=== PATIENT | male | born 1965 | race Caucasian/White ===

== ENCOUNTER 2018-01-11 13:58 | Inpatient (IN) ==
[2018-01-11 14:37] LABS: Basophils # 0.1 K/mcL (0.0-0.2); Eosinophils # 0.5 K/mcL (0.0-0.6); Eosinophils % 7.8 %; Hematocrit 24.2 % (37.5-50.1); Hemoglobin 8.2 g/dL (12.9-16.9); Immature Granulocytes % 0.5 % (0-4); Immature Platelets 13.1 % (1.1-6.1); Lymphocytes # 1.4 K/mcL (0.6-4.6); Mean Corpuscular HGB Conc 33.9 g/dL (31.6-35.5); Mean Corpuscular Hemoglobin 28.9 pg (28.0-33.3); Mean Corpuscular Volume 85.2 fL (83.0-100.0); Monocytes # 1.1 K/mcL (0.0-1.3); Monocytes % 17.1 %; Nucleated Red Blood Cells 0.3 /100 WBC (0); Platelet Count 109 K/mcL (140-400); Red Blood Count 2.84 M/mcL (4.19-5.50); Red Cell Distribution Width 18.6 % (11.5-14.5); Segmented Neutrophils % 51.6 %
[2018-01-11 14:45] LABS: Neutrophils # 3.3 K/mcL (1.6-8.9)
[2018-01-11 15:36] LABS: Calcium 7.8 mg/dL (8.6-10.3); Potassium 6.5 mEq/L (3.5-5.1)
[2018-01-11] MEDS ORDERED: Sodium Bicarbonate 50 MEQ/50 ML VIAL IVP ONE (15:36)
[2018-01-11] MEDS ORDERED: 0.9 % Sodium Chloride 1,000 ML IVC ONE (15:36)
[2018-01-11] MEDS ORDERED: *HR* FentaNYL (PF) 100 MCG/2 ML VIAL ONE (15:48)
[2018-01-11] MEDS ORDERED: *HR* FentaNYL (PF) 100 MCG/2 ML VIAL IVP ONE (16:26)
[2018-01-11] MEDS ORDERED: Furosemide 40 MG in 0.9 % Sodium Chloride 50 ML IVPB ONE (16:27)
[2018-01-11 16:58] LABS: Bilirubin,Urine Negative (Negative); Blood,Urine Large (Negative); Clarity,Urine Clear (Clear); Color,Urine Yellow (Yellow); Glucose,Urine (UA) >=1000 mg/dL (Normal); Ketones,Urine Negative (Negative); Leukocyte Esterase,Urine Negative (Negative); Nitrite,Urine Negative (Negative); Protein,Urine Negative (Neg-Trace); Specific Gravity,Urine 1.019 (1.010-1.025); Urobilinogen,Urine Normal (Normal)
[2018-01-11 17:00] LABS: Bacteria,Urine None Seen per hpf (None-Few); Hyaline Casts,Urine None Seen per lpf (None-Few); RBC,Urine 50-100 per hpf (0-3); Squamous Epithelial Cell,Urine Few per lpf (None-Few); WBC,Urine 0-3 per hpf (0-3)
--- NOTE | 2018-01-11 17:50 | Emergency Department Note ---
Disposition Clinical Impression: Hyperglycemia, Hyperkalemia Acute congestive heart failure Qualifiers: Heart failure type: unspecified Qualified Code(s): I50.9 - Heart failure, unspecified Hematuria Qualifiers: Hematuria type: unspecified type Qualified Code(s): R31.9 - Hematuria, unspecified Disposition: Admitted As Inpatient Condition: Fair General Adult HPI - General Chief complaint: ED General Medical Stated complaint: Legs painful burning X 3 days Time Seen by Provider: 01/11/18 14:00 Source: patient Mode of arrival: ambulatory Limitations: no limitations Nursing Notes Reviewed: Yes Vital Signs Reviewed: Yes - History of Present Illness HPI Narrative: 52-year-old male presents emergency department with concerns of burning in the bilateral lower extremity. Patient states pain is worse with movement. He has significant increase in swelling of bilateral lower extremity. Patient states he takes Lasix intermittently however he does not take it on a chronic basis. Patient denies fever, chills, chest pain, shortness of breath. Patient states he received a call sleek from his primary care provider that his potassium was significantly elevated however he did not have a ride to the hospital until today. Denies recent changes in medications. No recent chest pain, shortness of breath, palpitations. Pain Scale: 10 - Related Data Home Medications Medication Instructions Recorded Confirmed Aspirin [Adult Low Dose Aspirin EC] 81 mg PO DAILY 10/29/15 01/11/18 Atorvastatin [Lipitor] 40 mg PO HS 10/29/15 01/11/18 Furosemide [Lasix] 40 mg PO Q48H 10/29/15 01/11/18 Insulin ASPART [NovoLOG] 0 unit SQ TIDWM 10/29/15 01/11/18 Levothyroxine [Synthroid] 175 mcg PO 0630 10/29/15 01/11/18 Omeprazole [PriLOSEC] 40 mg PO DAILY 10/29/15 01/11/18 Spironolactone [Aldactone] 50 mg PO DAILY 10/29/15 01/11/18 Insulin Degludec [Tresiba 15 - 20 unit SQ HS 04/26/17 01/11/18 Flextouch U-100] Ciprofloxacin HCl [Cipro] 500 mg PO BID 01/11/18 01/11/18 HYDROcodone/Acet 10/325 mg [[place] 1 tab PO BID PRN 01/11/18 01/11/18 10-325 mg] Nadolol [Nadolol] 20 mg PO DAILY 01/11/18 01/11/18 Rifaximin [Xifaxan] 550 mg PO BID 01/11/18 01/11/18 Sennosides/Docusate Sodium [Senna 2 tab PO HS PRN 01/11/18 01/11/18 Plus] Previous Rx's Medication Instructions Recorded Prochlorperazine Maleate 10 mg PO Q6HR PRN #120 tablet 11/17/15 [Compazine] Ropinirole HCl [Requip] 3 mg PO HS #30 tablet 07/07/17 Lipase/Protease/Amylase [[address]nie Dr 4 each PO TIDWM #480 cap 07/19/17 6,000 Units Capsule] Allergies Allergy/AdvReac Type Severity Reaction Status Date / Time metformin Allergy Unknown unknown Verified 08/03/17 11:06 morphine Allergy Unknown Unknown Verified 08/03/17 11:06 Penicillins Allergy Unknown Rash Verified 08/03/17 11:06 All systems ED: reviewed and negative except as stated. Review of Systems: As Per HPI Past Medical History - Past Medical History Attestation: Yes The following information was validated with the patient. Source: patient Medical history: Reports: cancer, diabetes Surgical history: Reports: cancer surgery, cholecystectomy, colectomy, coronary bypass (CABG), splenectomy, other Psychiatric history: Reports: anxiety, bipolar, depression - Social History Smoking Status: Current every day smoker Smokeless Tobacco Status: No Alcohol use: Reports: none Drug use: Reports: none Physical Exam General: Alert and in no acute distress Skin: Warm, dry, intact Head: Normocephalic and atraumatic Neck: Supple, trachea midline and no tenderness Cardiovascular: RRR, no murmur, normal perfusion Respiratory: Crackles in the bilateral posterior inferior lung ford. Musculoskeletal: +2 pitting pitting in the bilateral lower shunt is. Full strength noted to the bilateral extremities with range of motion. Pulses equal in the bilateral lower extremities. GI: Soft, nontender, nondistended. Bowel sounds present Neuro: A&O to person, place, time and situation. No focal deficits noted on exam Psychiatric: cooperative and appropriate mood and affect. - General Limitations: no limitations General appearance: alert Course Vital Signs Temperature 98.5 F 01/11/18 14:05 Pulse Rate 56 01/11/18 14:05 Respiratory Rate 18 01/11/18 14:05 Blood Pressure 146/78 01/11/18 14:05 O2 Sat by Pulse Oximetry 100 01/11/18 14:05 Temperature 97.6 F 01/11/18 21:50 Pulse Rate 53 01/11/18 21:50 Respiratory Rate 18 01/11/18 21:50 Blood Pressure 168/80 01/11/18 21:50 O2 Sat by Pulse Oximetry 98 01/11/18 21:50 Oxygen Delivery Oxygen Delivery Room Air Medical Decision Making - MDM Narrative Medical decision making narrative: Patient was hyperkalemic, he was given calcium gluconate, bicarbonate an IV fluids. The set painter was counseled regarding the patient's likely acute congestive heart failure. Nephrology was consulted regarding the patient's hematuria. Patient is comfortable in the emergency department. Vital signs are stable. Patient will be admitted for further care and evaluation. He was given Lasix in emergency department. - Medical Records Medical records reviewed: Yes I reviewed the patient's medical records. - Lab Data Lab results reviewed: Yes I reviewed the patient's lab results. Result diagrams: 01/11/18 14:15 01/11/18 20:51 Lab Results 01/11/18 01/11/18 01/11/18 Range/Units 14:15 14:15 14:15 WBC 6.3 (4.3-11.1) K/mcL RBC 2.84 L (4.19-5.50) M/mcL Hgb 8.2 L (12.9-16.9) g/dL Hct 24.2 L (37.5-50.1) % MCV 85.2 (83.0-100.0) fL MCH 28.9 (28.0-33.3) pg MCHC 33.9 (31.6-35.5) g/dL RDW 18.6 H (11.5-14.5) % Plt Count 109 L (140-400) K/mcL Immature Gran % 0.5 (0-4) % Seg Neutrophils % 51.6 % Lymphocytes % 22.0 % Monocytes % 17.1 % Eosinophils % 7.8 % Basophils % 1.0 % Neutrophils # 3.3 (1.6-8.9) K/mcL Lymphocytes # 1.4 (0.6-4.6) K/mcL Monocytes # 1.1 (0.0-1.3) K/mcL Eosinophils # 0.5 (0.0-0.6) K/mcL Basophils # 0.1 (0.0-0.2) K/mcL Nucleated RBCs/100 WBC 0.3 H (0) /100 WBC Immature Plt Fraction 13.1 H (1.1-6.1) % Sodium 128 L (136-145) mEq/L Potassium 6.5 H* (3.5-5.1) mEq/L Chloride 106 (98-107) mEq/L Carbon Dioxide 20 L (23-29) mEq/L BUN 10 (6-20) mg/dL Creatinine 1.90 H (0.70-1.30) mg/dL Est GFR ( Amer) 45 L (> 60) Est GFR (Non-Af Amer) 37 L (> 60) BUN/Creatinine Ratio 5 L (6-26) Glucose 598 H* (70-105) mg/dL Calculated Osmolality 293 (280-300) Calcium 7.8 L (8.6-10.3) mg/dL Creatine Kinase 292 H (30-223) Units/L Troponin I < 0.03 (< 0.04) ng/mL B-Natriuretic Peptide (Less than 100) pg/mL Beta-Hydroxybutyric Acd (0.02-0.27) mmol/L Urine Color (Yellow) Urine Clarity (Clear) Urine pH (5.0-8.0) pH Units Ur Specific [place] (1.010-1.025) Urine Protein (Neg-Trace) mg/dL Urine Glucose (UA) (Normal) mg/dL Urine Ketones (Negative) mg/dL Urine Blood (Negative) Urine Nitrite (Negative) Urine Bilirubin (Negative) Urine Urobilinogen (Normal) mg/dL Ur Leukocyte Esterase (Negative) Urine Microscopic RBC (0-3) per hpf Urine Microscopic WBC (0-3) per hpf Ur Squamous Epith Cells (None-Few) per lpf Urine Bacteria (None-Few) per hpf Hyaline Casts (None-Few) per lpf Ur Culture Indicated? (NO) 01/11/18 01/11/18 01/11/18 Range/Units 14:15 14:41 16:45 WBC (4.3-11.1) K/mcL RBC (4.19-5.50) M/mcL Hgb (12.9-16.9) g/dL Hct (37.5-50.1) % MCV (83.0-100.0) fL MCH (28.0-33.3) pg MCHC (31.6-35.5) g/dL RDW (11.5-14.5) % Plt Count (140-400) K/mcL Immature Gran % (0-4) % Seg Neutrophils % % Lymphocytes % % Monocytes % % Eosinophils % % Basophils % % Neutrophils # (1.6-8.9) K/mcL Lymphocytes # (0.6-4.6) K/mcL Monocytes # (0.0-1.3) K/mcL Eosinophils # (0.0-0.6) K/mcL Basophils # (0.0-0.2) K/mcL Nucleated RBCs/100 WBC (0) /100 WBC Immature Plt Fraction (1.1-6.1) % Sodium (136-145) mEq/L Potassium (3.5-5.1) mEq/L Chloride (98-107) mEq/L Carbon Dioxide (23-29) mEq/L BUN (6-20) mg/dL Creatinine (0.70-1.30) mg/dL Est GFR ( Amer) (> 60) Est GFR (Non-Af Amer) (> 60) BUN/Creatinine Ratio (6-26) Glucose (70-105) mg/dL Calculated Osmolality (280-300) Calcium (8.6-10.3) mg/dL Creatine Kinase (30-223) Units/L Troponin I (< 0.04) ng/mL B-Natriuretic Peptide 674 H (Less than 100) pg/mL Beta-Hydroxybutyric Acd < 0.10 (0.02-0.27) mmol/L Urine Color Yellow (Yellow) Urine Clarity Clear (Clear) Urine pH 6.0 (5.0-8.0) pH Units Ur Specific [place] 1.019 (1.010-1.025) Urine Protein Negative (Neg-Trace) mg/dL Urine Glucose (UA) >=1000 H (Normal) mg/dL Urine Ketones Negative (Negative) mg/dL Urine Blood Large H (Negative) Urine Nitrite Negative (Negative) Urine Bilirubin Negative (Negative) Urine Urobilinogen Normal (Normal) mg/dL Ur Leukocyte Esterase Negative (Negative) Urine Microscopic RBC 50-100 H (0-3) per hpf Urine Microscopic WBC 0-3 (0-3) per hpf Ur Squamous Epith Cells Few (None-Few) per lpf Urine Bacteria None Seen (None-Few) per hpf Hyaline Casts None Seen (None-Few) per lpf Ur Culture Indicated? NO (NO) 01/11/18 Range/Units 20:51 WBC (4.3-11.1) K/mcL RBC (4.19-5.50) M/mcL Hgb (12.9-16.9) g/dL Hct (37.5-50.1) % MCV (83.0-100.0) fL MCH (28.0-33.3) pg MCHC (31.6-35.5) g/dL RDW (11.5-14.5) % Plt Count (140-400) K/mcL Immature Gran % (0-4) % Seg Neutrophils % % Lymphocytes % % Monocytes % % Eosinophils % % Basophils % % Neutrophils # (1.6-8.9) K/mcL Lymphocytes # (0.6-4.6) K/mcL Monocytes # (0.0-1.3) K/mcL Eosinophils # (0.0-0.6) K/mcL Basophils # (0.0-0.2) K/mcL Nucleated RBCs/100 WBC (0) /100 WBC Immature Plt Fraction (1.1-6.1) % Sodium 129 L (136-145) mEq/L Potassium 6.2 H (3.5-5.1) mEq/L Chloride 107 (98-107) mEq/L Carbon Dioxide 22 L (23-29) mEq/L BUN 10 (6-20) mg/dL Creatinine 1.72 H (0.70-1.30) mg/dL Est GFR ( Amer) 51 L (> 60) Est GFR (Non-Af Amer) 42 L (> 60) BUN/Creatinine Ratio 6 (6-26) Glucose 546 H* (70-105) mg/dL Calculated Osmolality 292 (280-300) Calcium 7.9 L (8.6-10.3) mg/dL Creatine Kinase (30-223) Units/L Troponin I (< 0.04) ng/mL B-Natriuretic Peptide (Less than 100) pg/mL Beta-Hydroxybutyric Acd (0.02-0.27) mmol/L Urine Color (Yellow) Urine Clarity (Clear) Urine pH (5.0-8.0) pH Units Ur Specific [place] (1.010-1.025) Urine Protein (Neg-Trace) mg/dL Urine Glucose (UA) (Normal) mg/dL Urine Ketones (Negative) mg/dL Urine Blood (Negative) Urine Nitrite (Negative) Urine Bilirubin (Negative) Urine Urobilinogen (Normal) mg/dL Ur Leukocyte Esterase (Negative) Urine Microscopic RBC (0-3) per hpf Urine Microscopic WBC (0-3) per hpf Ur Squamous Epith Cells (None-Few) per lpf Urine Bacteria (None-Few) per hpf Hyaline Casts (None-Few) per lpf Ur Culture Indicated? (NO) - Radiology Data Radiology results reviewed: Yes I reviewed the patient's radiology results. - EKG Data EKG #1 EKG attestation: Yes I reviewed and interpreted this EKG.
[2018-01-11] MEDS ORDERED: Naloxone 0.4 MG/ML INJ IVP PRN (20:22)
[2018-01-11] MEDS ORDERED: D5% in Water 1,000 ML IVC PRN (20:27)
[2018-01-11] MEDS ORDERED: Dextrose Gel 15 GM/37.5 ML TUBE PO PRN ×2 (20:27)
[2018-01-11] MEDS ORDERED: *HR* Dextrose 50 % in Water (Syg) 50 ML SYRINGE IVP PRN (20:27)
[2018-01-11] MEDS ORDERED: Insulin Regular, Human 100 UNIT/ML IV ONE (20:29)
--- NOTE | 2018-01-11 20:41 | Internal Med History&Physical ---
Date of Encounter: 01/11/18 Time of Encounter: 20:00 Assessment and Plan (1) Uncontrolled diabetes mellitus Current visit: Yes Status: Acute Patient has poorly controlled diabetes with glucose level over 500. Anion gap is 2. No hyperosmolarity. - Give patient insulin 10 units IV once. - Give patient basal and sliding scale insulin coverage. - Check BMP every 4 hour for hyperglycemia and hyperkalemia. Qualifiers: Diabetes mellitus type: type 1 Diabetes mellitus complication status: with kidney complications Diabetes mellitus complication detail: with chronic kidney disease Chronic kidney disease stage: stage 3 (moderate) Qualified Code(s): E10.22 - Type 1 diabetes mellitus with diabetic chronic kidney disease ; E10.65 - Type 1 diabetes mellitus with hyperglycemia; E10.65 - Type 1 diabetes mellitus with hyperglycemia; E10.65 - Type 1 diabetes mellitus with hyperglycemia; E10.65 - Type 1 diabetes mellitus with hyperglycemia; N18.3 - Chronic kidney disease, stage 3 (moderate); N18.3 - Chronic kidney disease, stage 3 (moderate) (2) Hyperkalemia Current visit: Yes Status: Acute Patient was given calcium gluconate, Lasix and bicarbonate in the emergency room. Will give IV insulin 10 units as well. Will hold home medications spironolactone. - Place patient on continuous cardiac monitoring - Check BMP every 4 hours (3) CHF (congestive heart failure) Current visit: Yes Status: Acute Patient denies shortness of breath. However, chest x-ray shows pulmonary congestion, patient has bilateral leg swelling and elevated BNP. - Consider CHF with mild fluid overload. - Place patient on Lasix 40 mg IV daily. - Check echocardiogram - Strict I and O. Cardiac and the fluid restriction diet. Qualifiers: Heart failure type: unspecified Heart failure chronicity: unspecified Qualified Code(s): I50.9 - Heart failure, unspecified (4) Leg pain, bilateral Current visit: Yes Status: Acute Etiology is undetermined. Patient has good pulse bilaterally. Patient has long -term diabetes with neuropathy, which may account for leg pain and burning. - Continue diabetes control - Place patient on gabapentin 300 mg 3 times a day - Treat electrolyte abnormality - PTOT evaluation (5) Cirrhosis Current visit: Yes Status: Acute Patient has cirrhosis due to fatty liver. Continue rifaximin and medication for constipation. Continue closely follow up as outpatient Qualifiers: Hepatic cirrhosis type: other cirrhosis Qualified Code(s): K74.69 - Other cirrhosis of liver (6) DVT prophylaxis Current visit: Yes Status: Acute EPCD. Not place patient on heparin because of thrombocytopenia (7) Pancreas cancer Current visit: No Status: Chronic S/P surgery 3 yrs ago. Continue Creon. Continue follow-up with oncology as outpatient Qualifiers: Pancreatic malignancy location: head of pancreas Qualified Code(s): C25.0 - Malignant neoplasm of head of pancreas Internal Medicine - H&P: HPI Chief complaint: Leg pain Admitted From: Home Plans for Post Hospital Care: Home History of present illness: Mr. Trimble is a 52 year old male with history of cirrhosis, pancreas cancer S/ P Whipple surgery, diabetes, hypertension, CAD S/P CABG, presented to ER for bilateral leg pain, burning, and cramping for 4 days. Patient states the pain is constant. Patient denies numbness, has mild weakness, no tingling. Patient denies urinary or fecal incontinence. Patient has no shortness of breath, chest pain, nausea or vomiting. In ER, he was found uncontrolled diabetes with glucose level over 500 with hyperkalemia as a potassium level at 6.5. Patient was given bicarbonate and Lasix in ER. He was admitted for further management. I have discussed CODE STATUS with patient. Patient clearly told me he does not want CPR or intubation, even temporarily intubation. DNR/DNI is placed. Past Med Surg Social Fam HX - Past Medical History Medical history: cancer, diabetes Psychiatric history: anxiety, bipolar, depression - Past Surgical History Surgical History: cancer surgery, cholecystectomy, colectomy, coronary bypass ( CABG), splenectomy, other - Social History Smoking Status: Current every day smoker Smokeless Tobacco Status: No Alcohol use: none Drug use: none - Family History Father Living Status: Hx Family Cardiac Disorders: Yes Hx Family Respiratory Disorders: Yes (copd) Hx Family Cancer: Yes (LIVER, LEUKEMIA, BONE) Hx Family GI Disorders: No Hx Family Endocrine Disorder: Yes Hx Family Neuromuscular Disorders: No Hx Family Neurologic Disorders: No Hx Family HEENT Disorders: No Hx Family Autoimmune Disorders: No Internal Medicine - H&P: Meds Aspirin [Adult Low Dose Aspirin EC] 81 mg PO DAILY 10/29/15 [History] Atorvastatin [Lipitor] 40 mg PO HS 10/29/15 [History] Furosemide [Lasix] 40 mg PO Q48H 10/29/15 [History] Insulin ASPART [NovoLOG] 0 unit SQ TIDWM 10/29/15 [History] Levothyroxine [Synthroid] 175 mcg PO 0630 10/29/15 [History] Omeprazole [PriLOSEC] 40 mg PO DAILY 10/29/15 [History] Spironolactone [Aldactone] 50 mg PO DAILY 10/29/15 [History] Prochlorperazine Maleate [Compazine] 10 mg PO Q6HR PRN #120 tablet 11/17/15 [Rx] Insulin Degludec [Tresiba Flextouch U-100] 15 - 20 unit SQ HS 04/26/17 [History] Ropinirole HCl [Requip] 3 mg PO HS #30 tablet 07/07/17 [Rx] Lipase/Protease/Amylase [Creon Dr 6,000 Units Capsule] 4 each PO TIDWM #480 cap 07/19/17 [Rx] Ciprofloxacin HCl [Cipro] 500 mg PO BID 01/11/18 [History] HYDROcodone/Acet 10/325 mg [[place] 10-325 mg] 1 tab PO BID PRN 01/11/18 [History] Nadolol [Nadolol] 20 mg PO DAILY 01/11/18 [History] Rifaximin [Xifaxan] 550 mg PO BID 01/11/18 [History] Sennosides/Docusate Sodium [Senna Plus] 2 tab PO HS PRN 01/11/18 [History] 3 Allergy/AdvReac Type Severity Reaction Status Date / Time metformin Allergy Unknown unknown Verified 08/03/17 11:06 morphine Allergy Unknown Unknown Verified 08/03/17 11:06 Penicillins Allergy Unknown Rash Verified 08/03/17 11:06 All Systems PM: A 10-system review of systems was performed and is negative for pertinent findings except as documented above in the HPI. - Constitutional Vitals: Temp Pulse Resp BP Pulse Ox 98.5 F 50 22 148/88 100 01/11/18 14:05 01/11/18 18:32 01/11/18 18:32 01/11/18 18:32 01/11/18 18:32 General appearance: Present: A&O X 3, no acute distress, answers questions appropriately - Head Head exam: Present: atraumatic, normocephalic - Eye Eye exam: Present: PERRL, conjuntiva pink, sclera anicteric Pupils: Present: PERRL - Neck Neck exam general surgery: Present: supple, trachea midline. Absent: lymphadenopathy - Respiratory Respiratory exam: Present: CTAB. Absent: accessory muscle use, rales, rhonchi, wheezes - Cardiovascular Cardiovascular exam: Present: RRR, +S1, +S2. Absent: diastolic murmur, gallop, rubs, systolic murmur - GI/Abdominal GI/Abdominal exam: Present: distended, normal bowel sounds, soft, no peritoneal signs. Absent: tenderness - Extremities Exam Extremities exam: Present: pedal edema (Bilateral pitting edema up to knees), warm, radial pulses palpable and symmetrical. Absent: calf tenderness, cyanotic - Neurological Exam Neurological exam: Present: CN II-XII intact, oriented X3, no focal deficits. Absent: pronater drift, facial droop, speech deficit - Skin Skin exam: Present: dry, intact Internal Med - H&P Results - Labs CBC & Chem 7: 01/11/18 14:15 01/11/18 14:15 Labs: Short CBC 01/11/18 Range/Units 14:15 WBC 6.3 (4.3-11.1) K/mcL Hgb 8.2 L (12.9-16.9) g/dL Hct 24.2 L (37.5-50.1) % Plt Count 109 L (140-400) K/mcL Neutrophils # 3.3 (1.6-8.9) K/mcL BMP 01/11/18 14:15 Sodium 128 L Potassium 6.5 H* Chloride 106 Carbon Dioxide 20 L BUN 10 Creatinine 1.90 H Glucose 598 H* Calcium 7.8 L Cardiac Enzymes 01/11/18 Range/Units 14:15 Troponin I < 0.03 (< 0.04) ng/mL Urine 01/11/18 Range/Units 16:45 Urine Color Yellow (Yellow) Urine Clarity Clear (Clear) Urine pH 6.0 (5.0-8.0) pH Units Ur Specific [place] 1.019 (1.010-1.025) Urine Protein Negative (Neg-Trace) mg/dL Urine Glucose (UA) >=1000 H (Normal) mg/dL - Impressions ITS Impressions Chest X-Ray 01/11/18 16:21 IMPRESSION: Cardiomegaly with mild vascular congestive change. D/ / 01/11/2018 17:12:47 Cabrera Boggs MD / mendez Interpreting Provider: Cabrera Boggs MD
[2018-01-11] MEDS ORDERED: SODIUM CHLORIDE IV ONE (20:45)
[2018-01-11] MEDS ORDERED: INSULIN HUMAN REGULAR IV ONE (20:45)
[2018-01-11] MEDS ORDERED: Sennosides/Docusate Sodium TABLET PO PRN (20:55)
[2018-01-11] MEDS ORDERED: Insulin DETEMIR 100 UNIT/ML X5UNITS SQ SCH (21:00)
[2018-01-11 21:38] LABS: Calcium 7.9 mg/dL (8.6-10.3); Potassium 6.2 mEq/L (3.5-5.1)
[2018-01-11] MEDS: *HR* HYDROcodone/Acet 10/325 mg TABLET PO PRN (22:20)
[2018-01-11] MEDS: Gabapentin 300 MG CAPSULE PO SCH (22:20)
[2018-01-11] MEDS: Insulin LISPRO 300 UNITS/3 ML VIAL SQ SCH (22:21)
[2018-01-12 00:48] LABS: Basophils % 0.6 %; Hematocrit 23.2 % (37.5-50.1); Immature Granulocytes % 0.3 % (0-4); Mean Corpuscular HGB Conc 34.5 g/dL (31.6-35.5)
[2018-01-12 00:50] LABS: Eosinophils # 0.4 K/mcL (0.0-0.6); Eosinophils % 6.9 %; Immature Platelets 12.9 % (1.1-6.1); Lymphocytes # 1.5 K/mcL (0.6-4.6); Lymphocytes % 22.7 %; Mean Corpuscular Hemoglobin 29.1 pg (28.0-33.3); Mean Corpuscular Volume 84.4 fL (83.0-100.0); Monocytes % 15.8 %; Neutrophils # 3.4 K/mcL (1.6-8.9); Platelet Count 103 K/mcL (140-400); Red Blood Count 2.75 M/mcL (4.19-5.50); Red Cell Distribution Width 18.3 % (11.5-14.5); Segmented Neutrophils % 53.7 %
[2018-01-12 00:54] LABS: INR 1.9; Prothrombin Time 20.5 Seconds (9.4-12.1)
[2018-01-12 01:16] LABS: Albumin 1.7 g/dL (3.5-5.7); Albumin/Globulin Ratio 0.4 (1.1-2.2); Globulin 4.1 g/dL (2.4-3.5); Magnesium 1.4 mg/dL (1.6-2.6); Phosphorous 3.4 mg/dL (2.7-4.5); Potassium 5.6 mEq/L (3.5-5.1); Total Protein 5.8 g/dL (6.4-8.9)
[2018-01-12 01:19] LABS: Potassium 5.6 mEq/L (3.5-5.1)
[2018-01-12 01:42] LABS: Acanthocytes 1+ (Not Present); Anisocytosis 1+ (Not Present); Microcytosis Present (Not Present); Platelet Estimate Decreased (Normal); Poikilocytosis 1+ (Not Present); Schistocytes 1+ (Not Present)
[2018-01-12] MEDS: Aspirin Enteric Coated 81 MG Tablet PO SCH (08:45)
[2018-01-12] MEDS: Gabapentin 300 MG CAPSULE PO SCH ×3 (08:46→22:12)
[2018-01-12] MEDS: Furosemide 40 MG/4 ML VIAL IVP SCH (08:46)
[2018-01-12] MEDS: Insulin LISPRO 300 UNITS/3 ML VIAL SQ SCH ×4 (08:46→22:13)
--- NOTE | 2018-01-12 11:20 | Nephrology Consult Note ---
Date of Encounter: 01/12/18 Time of Encounter: 11:16 Assessment and Plan (1) Hyperkalemia Current Visit: Yes Status: Acute Improving, currently K+ 5.6 Agree with holding Spironolactone Continue IV insulin (2) Acute kidney injury superimposed on chronic kidney disease Current Visit: Yes Status: Acute Review of past labs show a CKD stage 3a with a baseline of Scr 1.5 and GFR 46 Current Scr 1.87 and GFR 38 Workup to include: urine sodium, urine creatinine, urine eosinophils, CPK, uric acid, renal ultrasound, PTH, C3 & C4 compliment, Vit D 25-OH, FÉLIX, protein electrophoresis, immunofixation urine, protein/creatinine ratio. Patient has used a lot of NSAIDs; recommend Tylenol in future and avoid NSAIDs Strict I/Os Avoid nephrotoxins if possible (3) Leg pain, bilateral Current Visit: Yes Status: Acute per primary team Patient on Gabapentin 300mg TID; recommended dose for patient with a Scr 30-60 is 200mg-700mg BID; consider lowering Gabapentin dosage to BID in light of CKD (4) Uncontrolled diabetes mellitus Current Visit: Yes Status: Acute per primary team Qualifiers: Diabetes mellitus type: type 1 Diabetes mellitus complication status: with kidney complications Diabetes mellitus complication detail: with chronic kidney disease Chronic kidney disease stage: stage 3 (moderate) Qualified Code(s): E10.22 - Type 1 diabetes mellitus with diabetic chronic kidney disease ; E10.65 - Type 1 diabetes mellitus with hyperglycemia; E10.65 - Type 1 diabetes mellitus with hyperglycemia; E10.65 - Type 1 diabetes mellitus with hyperglycemia; E10.65 - Type 1 diabetes mellitus with hyperglycemia; N18.3 - Chronic kidney disease, stage 3 (moderate); N18.3 - Chronic kidney disease, stage 3 (moderate) (5) Hypomagnesemia Current Visit: Yes Status: Acute Mg 1.4 Give Mg 2grams History of Present Illness - Reason for Consult Consult date: 01/12/18 - Chief Complaint Hyperkalemia, LISA, uncontrolled diabetes mellitus - History of Present Illness Mr. Trimble is a 52 year old male with a PMH of cirrhosis, pancreas cancer S/P Whipple surgery, diabetes, hypertension, CAD S/P CABG, who presented to ER for bilateral leg pain, burning, and cramping for 4 days. In ER, he was found uncontrolled diabetes with glucose level over 500 and with a K+ of 6.5. Patient was given bicarbonate, calcium gluconate and Lasix in ER and admitted for further management. K+ is now 5.6; Scr 1.87 and GFR 38. Denies ever being told he has CKD or seeing a photoradio operator. Denies any family history of kidney disease. Admits to a lot of NSAID usage due to chronic pain. Past Med Surg Social Fam HX - Past Medical History Medical history: cancer, diabetes Psychiatric history: anxiety, bipolar, depression - Past Surgical History Surgical History: cancer surgery, cholecystectomy, colectomy, coronary bypass ( CABG), splenectomy, other - Social History Smoking Status: Current every day smoker Smokeless Tobacco Status: No Alcohol use: none Drug use: none - Family History Father Living Status: Hx Family Cardiac Disorders: Yes Hx Family Respiratory Disorders: Yes (copd) Hx Family Cancer: Yes (LIVER, LEUKEMIA, BONE) Hx Family GI Disorders: No Hx Family Endocrine Disorder: Yes Hx Family Neuromuscular Disorders: No Hx Family Neurologic Disorders: No Hx Family HEENT Disorders: No Hx Family Autoimmune Disorders: No Medications and Allergies Aspirin [Adult Low Dose Aspirin EC] 81 mg PO DAILY 10/29/15 [History] Atorvastatin [Lipitor] 40 mg PO HS 10/29/15 [History] Furosemide [Lasix] 40 mg PO Q48H 10/29/15 [History] Insulin ASPART [NovoLOG] 0 unit SQ TIDWM 10/29/15 [History] Levothyroxine [Synthroid] 175 mcg PO 0630 10/29/15 [History] Omeprazole [PriLOSEC] 40 mg PO DAILY 10/29/15 [History] Spironolactone [Aldactone] 50 mg PO DAILY 10/29/15 [History] Prochlorperazine Maleate [Compazine] 10 mg PO Q6HR PRN #120 tablet 11/17/15 [Rx] Insulin Degludec [Tresiba Flextouch U-100] 15 - 20 unit SQ HS 04/26/17 [History] Ropinirole HCl [Requip] 3 mg PO HS #30 tablet 07/07/17 [Rx] Lipase/Protease/Amylase [Creon Dr 6,000 Units Capsule] 4 each PO TIDWM #480 cap 07/19/17 [Rx] Ciprofloxacin HCl [Cipro] 500 mg PO BID 01/11/18 [History] HYDROcodone/Acet 10/325 mg [[place] 10-325 mg] 1 tab PO BID PRN 01/11/18 [History] Nadolol [Nadolol] 20 mg PO DAILY 01/11/18 [History] Rifaximin [Xifaxan] 550 mg PO BID 01/11/18 [History] Sennosides/Docusate Sodium [Senna Plus] 2 tab PO HS PRN 01/11/18 [History] 3 Allergy/AdvReac Type Severity Reaction Status Date / Time metformin Allergy Unknown unknown Verified 08/03/17 11:06 morphine Allergy Unknown Unknown Verified 08/03/17 11:06 Penicillins Allergy Unknown Rash Verified 08/03/17 11:06 Review of Systems All Systems: reviewed and no additional remarkable complaints except as stated Constitutional: malaise, weight gain, no chills, no fever(s) Cardiovascular: leg edema, no chest pain, no dyspnea, no dyspnea on exertion Respiratory: no dyspnea Gastrointestinal: no vomiting Neurological: no behavioral changes Exam - Vital Signs Vital signs: Initial Vital Signs Temp Pulse Resp BP Pulse Ox 98.5 F 56 18 146/78 100 01/11/18 14:05 01/11/18 14:05 01/11/18 14:05 01/11/18 14:05 01/11/18 14:05 Vital Signs - Last 8 Hours Temp Pulse Resp BP Pulse Ox 01/12/18 06:50 97.5 F L 53 15 108/63 97 01/12/18 04:25 97.5 F L 56 18 104/62 94 Intake and Output 01/11/18 01/12/18 01/12/18 23:59 07:59 15:59 Intake Total 0 / 1164 0 / 0 240 / 240 Output Total 350 / 350 300 / 300 Balance -350 / 814 -300 / -300 240 / 240 Intake: Oral 0 / 0 0 / 0 240 / 240 Output: Urine 350 / 350 300 / 300 Other: Meal Breakfast Percent of Meal Consumed 100% # Voids 1 0 # Bowel Movements 1 Weight 91.6 kg Blood Glucose* 510 229 - General Appearance General appearance: well-developed, well-nourished EENT: ATNC, mucous membranes moist, hearing intact, vision intact Neck: supple Respiratory: clear Cardiology: edema, normal S1, normal S2 Gastrointestinal: no tenderness, no guarding Neurologic: alert and oriented x3 Psychiatric: mood/affect appropriate, cooperative Results - Lab Results 01/12/18 00:26 01/12/18 00:26 Most recent lab results Calcium 8.0 mg/dL (8.6-10.3) L 01/12/18 00:26 Phosphorus 3.4 mg/dL (2.7-4.5) 01/12/18 00:26 Magnesium 1.4 mg/dL (1.6-2.6) L 01/12/18 00:26 Consult Discharge Plan - Plan Referrals: Niurka Arana, ELKIN [Primary Care Provider] -
--- NOTE | 2018-01-12 15:11 | Cardiology Consult Note ---
<AnthonyYnes Tami - Last Filed: 01/12/18 15:14> Date of Encounter: 01/12/18 Time of Encounter: 14:30 Assessment and Plan (1) CHF (congestive heart failure) Current Visit: Yes Status: Acute Per cardiology: -Significant lower extremity edema. -BNP 600s -TTE with LVEF 60-65%, moderate diastolic dysufnction, no segmental wall motion abnormalities. -Chest x-ray with mild vascular changes. -ON IV lasix. -Strict i/os, daily weighs, fluid restriction. -Will continue to monitor. Qualifiers: Heart failure type: diastolic Heart failure chronicity: unspecified Qualified Code(s): I50.30 - Unspecified diastolic (congestive) heart failure Discussion w patient/family: The assessment and plan as outlined above was discussed with the patient who expressed understanding and agreement. All questions were answered. Thank you for involving us in the care of your patient. Please call with any questions. Discussed and reviewed with . History of Present Illness Consult date: 01/11/18 Requesting physician: Viktor Crews Consult reason: fluid overload Chief complaint: leg pain History of present illness: Mr. Trimble is a 52 year old male with a relevant past medial history of CAD s/ p CABG, pancreatic CA s/p whipple procedure, depression, HTN, GERD, thyroid disease, liver cirrhosis. Patient presented to [facility] on advice of his PCP for abnormal potassium level. Patient complaned of bilateral lower extermity leg burning upon presentation. Upon my assessment, patient lethargic. Past Med Surg Social Fam HX - Past Medical History Attestation: Yes The following information was validated with the patient. Source: patient, old records reviewed Medical history: cancer, coronary artery disease, diabetes Psychiatric history: anxiety, bipolar, depression - Past Surgical History Surgical History: cancer surgery, cholecystectomy, colectomy, coronary bypass ( CABG), splenectomy, other - Social History Smoking Status: Current every day smoker Smokeless Tobacco Status: No Alcohol use: none Drug use: none - Family History Father Living Status: Hx Family Cardiac Disorders: Yes Hx Family Respiratory Disorders: Yes (copd) Hx Family Cancer: Yes (LIVER, LEUKEMIA, BONE) Hx Family GI Disorders: No Hx Family Endocrine Disorder: Yes Hx Family Neuromuscular Disorders: No Hx Family Neurologic Disorders: No Hx Family HEENT Disorders: No Hx Family Autoimmune Disorders: No Medications and Allergies Aspirin [Adult Low Dose Aspirin EC] 81 mg PO DAILY 10/29/15 [History] Atorvastatin [Lipitor] 40 mg PO HS 10/29/15 [History] Furosemide [Lasix] 40 mg PO Q48H 10/29/15 [History] Insulin ASPART [NovoLOG] 0 unit SQ TIDWM 10/29/15 [History] Levothyroxine [Synthroid] 175 mcg PO 0630 10/29/15 [History] Omeprazole [PriLOSEC] 40 mg PO DAILY 10/29/15 [History] Spironolactone [Aldactone] 50 mg PO DAILY 10/29/15 [History] Prochlorperazine Maleate [Compazine] 10 mg PO Q6HR PRN #120 tablet 11/17/15 [Rx] Insulin Degludec [Tresiba Flextouch U-100] 15 - 20 unit SQ HS 04/26/17 [History] Ropinirole HCl [Requip] 3 mg PO HS #30 tablet 07/07/17 [Rx] Lipase/Protease/Amylase [Creon Dr 6,000 Units Capsule] 4 each PO TIDWM #480 cap 07/19/17 [Rx] Ciprofloxacin HCl [Cipro] 500 mg PO BID 01/11/18 [History] HYDROcodone/Acet 10/325 mg [[place] 10-325 mg] 1 tab PO BID PRN 01/11/18 [History] Nadolol [Nadolol] 20 mg PO DAILY 01/11/18 [History] Rifaximin [Xifaxan] 550 mg PO BID 01/11/18 [History] Sennosides/Docusate Sodium [Senna Plus] 2 tab PO HS PRN 01/11/18 [History] 3 Allergy/AdvReac Type Severity Reaction Status Date / Time metformin Allergy Unknown unknown Verified 08/03/17 11:06 morphine Allergy Unknown Unknown Verified 08/03/17 11:06 Penicillins Allergy Unknown Rash Verified 08/03/17 11:06 All Systems Review: The remainder of the systems were reviewed and are negative - Cardiovascular Cardiovascular: as per HPI, leg edema Physical Examination Vital Signs, Last 4 Hours Temp Pulse Resp BP Pulse Ox 01/12/18 11:39 97.7 F 68 16 130/74 99 General: Other (Lethargic) HEENT: Atraumatic, Normocephaly, Mucus Membranes Moist Neck: No JVD, Normal carotid pulses Cardiac: Reg Rate and Rhythm, Normal S1 and S2, No Murmur Lungs: Normal Breath Sounds, No Wheeze, Rales, Rhonchi Neuro: Alert and responsive, No focal deficits noted Abdomen: Soft, Non-Tender Skin: No rashes noted on visualized skin Musculoskeletal: No Chest Wall Tenderness Extremities: No Clubbing, No Cyanosis, Normal Pulses, Other (Bilateral lower extremity edema noted. ) Results 01/12/18 00:26 01/12/18 00:26 Lab Results ITS Impressions Chest X-Ray 01/11/18 16:21 IMPRESSION: Cardiomegaly with mild vascular congestive change. D/ / 01/11/2018 17:12:47 Cabrera Boggs MD / [facility] Interpreting Provider: Cabrera Boggs MD Echocardiogram 01/12/18 20:51 Impressions: LVEF 60-65%. Normal LV chamber size and function. Moderate left ventricular diastolic dysfunction. Atypical septal motion consistent with bundle branch block/post-op. Normal right ventricular structure and function. No evidence of pulmonary hypertension. No significant valvular dysfunction. Left Ventricular Wall Motion: Rest Echo Findings All wall segments showed normal motion. Findings: Study Quality * Technically adequate exam. ECG Findings * Normal sinus rhythm. Left Ventricle * LVEF 60-65%. * Normal LV chamber size and function. * Moderate left ventricular diastolic dysfunction. * Atypical septal motion consistent with bundle branch block/post-op. Right Ventricle * Normal right ventricular structure and function. Left Atrium * Moderate to severely dilated left atrium. Right Atrium * Moderately dilated right atrium. Interatrial Septum * Interatrial septum not well evaluated. Aortic Valve * Trileaflet aortic valve. * Mildly sclerotic aortic valve leaflets. * No aortic regurgitation. * No aortic stenosis. Mitral Valve * Mildly thickened mitral valve leaflets. * Trace mitral regurgitation. * No mitral stenosis. Tricuspid Valve * Normal tricuspid valve structure and function. * Trace tricuspid regurgitation. * No evidence of pulmonary hypertension. Pulmonic Valve * Normal pulmonic valve structure and function. * No pulmonic regurgitation. Aorta * Normally sized aortic root. Pericardium * The pericardium appears normal. IVC * Normal IVC dimensions and inspiratory collapse. Pulmonary Artery * Normal visualized portions of the main pulmonary artery. Active Medications Hydrocodone Bitart/Acetaminophen ([place] 10-325 Mg) 1 each PO BID PRN PRN Reason: Pain Stop: 07/13/18 20:33 Last Admin: 01/11/18 22:20 Dose: 1 each Lipase/Protease/Amylase (Creon Dr 6,000 Units Capsule) 4 each PO TIDWM MALATHI Stop: 07/14/18 08:01 Last Admin: 01/12/18 12:06 Dose: 4 each Aspirin (Aspirin Ec) 81 mg PO DAILY MALATHI Stop: 07/14/18 09:01 Last Admin: 01/12/18 08:45 Dose: 81 mg Atorvastatin Calcium (Lipitor) 40 mg PO HS MALATHI Stop: 07/13/18 21:01 Last Admin: 01/11/18 22:20 Dose: 40 mg Dextrose/Water (Dextrose 50% (Syg)) 25 ml IVP AD PRN PRN Reason: Hypoglycemia Stop: 07/13/18 20:28 Furosemide (Lasix) 40 mg IVP DAILY MALATHI Stop: 07/14/18 09:01 Last Admin: 01/12/18 08:46 Dose: 40 mg Gabapentin (Neurontin) 300 mg PO TID MALATHI Stop: 07/13/18 21:01 Last Admin: 01/12/18 15:07 Dose: 300 mg Glucagon (Glucagen) 1 mg IM ONCE PRN PRN Reason: Hypoglycemia Stop: 07/13/18 20:28 Glucose (Gluctose) 15 gm PO ONCE PRN PRN Reason: Hypoglycemia Stop: 07/13/18 20:28 Glucose (Gluctose) 30 gm PO ONCE PRN PRN Reason: Hypoglycemia Stop: 07/13/18 20:28 Dextrose (Dextrose 5%) 1,000 mls @ 100 mls/hr IVC .Q10H PRN PRN Reason: HYPOGLYCEMIA Stop: 07/13/18 20:28 Insulin Detemir (Levemir) 15 unit SQ HS MALATHI Stop: 07/14/18 21:01 Insulin Human Lispro (Humalog) 0 units SQ HS MALATHI PRN Reason: Protocol Stop: 07/13/18 21:01 Last Admin: 01/11/18 22:21 Dose: 8 units Insulin Human Lispro (Humalog) 0 units SQ TIDAC MALATHI PRN Reason: Protocol Stop: 07/14/18 07:31 Last Admin: 01/12/18 13:32 Dose: Not Given Levothyroxine Sodium (Synthroid) 175 mcg PO 0630 [facility] Stop: 07/14/18 06:31 Last Admin: 01/12/18 05:42 Dose: 175 mcg Nadolol (Corgard) 20 mg PO DAILY MALATHI Stop: 07/14/18 09:01 Last Admin: 01/12/18 08:45 Dose: 20 mg Naloxone HCl (Narcan) 0.4 mg IVP Q2MIN PRN PRN Reason: SEE COMMENTS Stop: 07/13/18 20:23 Omeprazole (Prilosec) 40 mg PO DAILY@0730 MALATHI PRN Reason: Protocol Stop: 07/14/18 07:31 Last Admin: 01/12/18 08:46 Dose: 40 mg Prochlorperazine Maleate (Compazine) 10 mg PO Q6HR PRN PRN Reason: Nausea Stop: 07/13/18 20:33 Rifaximin (Xifaxan) 400 mg PO BID [facility] Stop: 07/13/18 21:01 Last Admin: 01/12/18 08:46 Dose: 400 mg Ropinirole HCl (Requip) 3 mg PO HS MALATHI Stop: 07/13/18 21:01 Last Admin: 01/11/18 23:11 Dose: 3 mg Senna/Docusate Sodium (Senna Plus) 2 each PO HS PRN; Protocol PRN Reason: Constipation Stop: 07/13/18 20:56 Laboratory Tests 01/11/18 01/11/18 01/11/18 14:15 14:15 14:41 Hgb Potassium 6.5 H* Creatinine Troponin I < 0.03 B-Natriuretic Peptide 674 H 01/12/18 01/12/18 00:26 00:26 Hgb 8.0 L Potassium Creatinine 1.88 H Troponin I B-Natriuretic Peptide - Imaging and Cardiology Chest Xray: report reviewed - EKG Interpretation EKG results cardiology: personally reviewed (ECG with SB, RBBB.), other ( Telemetry reviewed with average HR previous 12 hours noted to be 56, SB. PVCs and PACs noted.) Consult Discharge Plan - Plan Referrals: Niurka Arana, AGRICULTURAL ENGINEERING TECHNOLOGIST [Primary Care Provider] - <Giovanna Malone - Last Filed: 01/12/18 15:42> Date of Encounter: 01/12/18 - Attending Attestation 52 YOM with known CAD, s/p CABG x 4 years ago and a preserved EF with moderate DD presents with bilateral LE edema. His LE edema is severe yet he has no other signs of hypervolemia. He denies any CP, orthopnea or PND. I believe his LE is out of proportion to his CHF. He is s/p whipple surgery and has hepatic cirrhosis. Will continue gentle diuresis however I do recommend a surgery consult for a local obstructive LE edema etiology. Assessment and Plan Discussion w patient/family: The assessment and plan as outlined above was discussed with the patient and/or family members who expressed understanding and agreement. All questions were answered. Thank you for involving us in the care of your patient. Please call with any questions. History of Present Illness History of present illness: Mr. Trimble is a 52 year old male All Systems Review: The remainder of the systems were reviewed and are negative Physical Examination Vital Signs, Last 4 Hours Temp Pulse Resp BP Pulse Ox 01/12/18 11:39 97.7 F 68 16 130/74 99 Results 01/12/18 00:26 01/12/18 00:26 Lab Results 01/12/18 01/12/18 01/12/18 00:26 00:26 00:26 WBC 6.4 Hgb 8.0 L Hct 23.2 L Plt Count 103 L INR 1.9 Sodium 131 L Potassium 5.6 H Chloride 108 H Carbon Dioxide 20 L BUN 10 Creatinine 1.88 H Glucose 395 H Calcium 8.0 L Magnesium 1.4 L Total Bilirubin 1.0 AST 26 ALT 19 Alkaline Phosphatase 140 H 01/12/18 00:26 WBC Hgb Hct Plt Count INR Sodium 132 L Potassium 5.6 H Chloride 109 H Carbon Dioxide 21 L BUN 10 Creatinine 1.87 H Glucose 394 H Calcium 8.0 L Magnesium Total Bilirubin AST ALT Alkaline Phosphatase
--- NOTE | 2018-01-12 16:16 | Internal Med Progress Note ---
Date of Encounter: 01/12/18 Time of Encounter: 16:14 - Assessment and plan (1) Leg pain, bilateral Current Visit: Yes Status: Acute Assessment and plan: Cardiology evaluated patient and seems less likely this edema is related to heart failure, could be more local causes. - Ultrasound lower extremities rule out DVT - Surgery consult in AM - Check TSH - Gabapentin 300 mg BID - Edema in legs, will follow-up with Nephrology labs ordered today which include urine protein studies (2) Hyperkalemia Current Visit: Yes Status: Acute Assessment and plan: Lasix 40 mg IV daily Spironolactone held Nephrology following recommendations appreciated Continue telemetry monitoring Most recent labs show K+ 5.6 (3) CHF (congestive heart failure) Current Visit: Yes Status: Acute Assessment and plan: Fluid restrict IV Lasix Monitor I/Os Cardiology following, recommendations appreciated. Qualifiers: Heart failure type: diastolic Heart failure chronicity: unspecified Qualified Code(s): I50.30 - Unspecified diastolic (congestive) heart failure (4) Cirrhosis Current Visit: Yes Status: Acute Assessment and plan: Patient has cirrhosis due to fatty liver. Continue rifaximin and medication for constipation. Continue closely follow up as outpatient Qualifiers: Hepatic cirrhosis type: other cirrhosis Qualified Code(s): K74.69 - Other cirrhosis of liver (5) Uncontrolled diabetes mellitus Current Visit: Yes Status: Acute Assessment and plan: Glucose improved. Will resume home levemir dose of 15 units HS and sliding scale insulin Qualifiers: Diabetes mellitus type: type 1 Diabetes mellitus complication status: with kidney complications Diabetes mellitus complication detail: with chronic kidney disease Chronic kidney disease stage: stage 3 (moderate) Qualified Code(s): E10.22 - Type 1 diabetes mellitus with diabetic chronic kidney disease ; E10.65 - Type 1 diabetes mellitus with hyperglycemia; E10.65 - Type 1 diabetes mellitus with hyperglycemia; E10.65 - Type 1 diabetes mellitus with hyperglycemia; E10.65 - Type 1 diabetes mellitus with hyperglycemia; N18.3 - Chronic kidney disease, stage 3 (moderate); N18.3 - Chronic kidney disease, stage 3 (moderate) (6) Chronic kidney disease (CKD), stage III (moderate) Current Visit: Yes Status: Acute Assessment and plan: Nephrology following, recommendations appreciated (7) Pancreas cancer Current Visit: No Status: Chronic Assessment and plan: S/P surgery 3 yrs ago. Continue Creon. Continue follow-up with oncology as outpatient Qualifiers: Pancreatic malignancy location: head of pancreas Qualified Code(s): C25.0 - Malignant neoplasm of head of pancreas (8) DVT prophylaxis Current Visit: Yes Status: Acute Assessment and plan: EPCD. Not place patient on heparin because of thrombocytopenia - Subjective Interval history: Patient has history of cirrhosis, pancreatic cancer s/p Whipple surgery, DM, HTn , CAD s/p CABG. He presented to ED for bilateral leg pain, burning and cramping for 4 days. He denies any numbness/tingling. Complains of some mild weakness. He has no SOB, CP, n/v. He was found to have elevated glucose in 500s and also hyperkalemia at 6.5. He was given Lasix and bicarbonate in ED as well as 10 units IV insulin. He appears to be in mild CHF exacerbation as well and so he is being diuresed and Cardiology has been consulted. Today he states leg pain still present, swelling as well is unchanged. He denies CP, SOB, n/v, numbness/tingling. - Constitutional Vitals: Temp Pulse Resp BP Pulse Ox 97.7 F 49 15 110/71 96 01/12/18 16:00 01/12/18 16:00 01/12/18 16:00 01/12/18 16:00 01/12/18 16:00 Exam: Gen: NAD, AAOx3 HEENT: No JVD CVS: RRR, no mrg Lungs: CTAB, no w/r/r Abdomen: Soft, NT/ND, normal BS Ext: Left LE: 2+ pitting edema with tenderness to palpation. Right LE: 1-2+ pitting edema. Normal ROM. Internal Medicine: Result - Labs CBC & Chem 7: 01/12/18 00:26 01/12/18 00:26 Labs: Short CBC 01/12/18 Range/Units 00:26 WBC 6.4 (4.3-11.1) K/mcL Hgb 8.0 L (12.9-16.9) g/dL Hct 23.2 L (37.5-50.1) % Plt Count 103 L (140-400) K/mcL Neutrophils # 3.4 (1.6-8.9) K/mcL BMP 01/12/18 01/12/18 00:26 00:26 Sodium 131 L 132 L Potassium 5.6 H 5.6 H Chloride 108 H 109 H Carbon Dioxide 20 L 21 L BUN 10 10 Creatinine 1.88 H 1.87 H Glucose 395 H 394 H Calcium 8.0 L 8.0 L Liver Function 01/12/18 Range/Units 00:26 Total Bilirubin 1.0 (0.3-1.0) mg/dL AST 26 (13-39) Units/L ALT 19 (7-52) Units/L Alkaline Phosphatase 140 H (34-104) Units/L Albumin 1.7 L (3.5-5.7) g/dL - ABG Interpretation ABG results: PT/INR, D-dimer PT 20.5 Seconds (9.4-12.1) H 01/12/18 00:26 - Impressions Impressions Echocardiogram 01/12/18 20:51 Impressions: LVEF 60-65%. Normal LV chamber size and function. Moderate left ventricular diastolic dysfunction. Atypical septal motion consistent with bundle branch block/post-op. Normal right ventricular structure and function. No evidence of pulmonary hypertension. No significant valvular dysfunction. Left Ventricular Wall Motion: Rest Echo Findings All wall segments showed normal motion. Findings: Study Quality * Technically adequate exam. ECG Findings * Normal sinus rhythm. Left Ventricle * LVEF 60-65%. * Normal LV chamber size and function. * Moderate left ventricular diastolic dysfunction. * Atypical septal motion consistent with bundle branch block/post-op. Right Ventricle * Normal right ventricular structure and function. Left Atrium * Moderate to severely dilated left atrium. Right Atrium * Moderately dilated right atrium. Interatrial Septum * Interatrial septum not well evaluated. Aortic Valve * Trileaflet aortic valve. * Mildly sclerotic aortic valve leaflets. * No aortic regurgitation. * No aortic stenosis. Mitral Valve * Mildly thickened mitral valve leaflets. * Trace mitral regurgitation. * No mitral stenosis. Tricuspid Valve * Normal tricuspid valve structure and function. * Trace tricuspid regurgitation. * No evidence of pulmonary hypertension. Pulmonic Valve * Normal pulmonic valve structure and function. * No pulmonic regurgitation. Aorta * Normally sized aortic root. Pericardium * The pericardium appears normal. IVC * Normal IVC dimensions and inspiratory collapse. Pulmonary Artery * Normal visualized portions of the main pulmonary artery. Consult Discharge Plan - Plan Referrals: Niurka Arana, ELKIN [Primary Care Provider] -
--- NOTE | 2018-01-12 18:38 | Electrocardiograph Report ---
[place] [facility] [employer] Test Date: 2018-01-11 Pat Name: Karson Trimble Department: 104 Room: 2NE22 Gender: M Mortgage Loan Interviewer: VL : 1965 Requested By: Silvia Ulrich Order Number: [id number] Reading MD: Kavitha Solis DO Measurements Intervals [place] Rate: 55 P: 18 [place]: 197 QRS: -49 QRSD: 169 T: 19 QT: 491 QTc: 479 Interpretive Statements SINUS BRADYCARDIA RIGHT BUNDLE BRANCH BLOCK LEFT ANTERIOR FASCICULAR BLOCK Electronically Signed On 01-12-2018 18:36:53 EST by Kavitha Solis DO
[2018-01-12] MEDS: *HR* HYDROcodone/Acet 10/325 mg TABLET PO PRN (22:12)
[2018-01-13] MEDS: Insulin DETEMIR 100 UNIT/ML X5UNITS SQ SCH ×2 (00:16→19:56)
[2018-01-13 05:24] LABS: Monocytes # 0.9 K/mcL (0.0-1.3); Monocytes % 11.9 %; Red Cell Distribution Width 18.1 % (11.5-14.5)
[2018-01-13 05:27] LABS: Basophils % 0.4 %; Eosinophils # 0.5 K/mcL (0.0-0.6); Eosinophils % 6.2 %; Hematocrit 21.4 % (37.5-50.1); Hemoglobin 7.6 g/dL (12.9-16.9); Immature Granulocytes % 0.3 % (0-4); Lymphocytes % 20.7 %; Mean Corpuscular HGB Conc 35.5 g/dL (31.6-35.5); Mean Corpuscular Hemoglobin 29.6 pg (28.0-33.3); Mean Corpuscular Volume 83.3 fL (83.0-100.0); Neutrophils # 4.5 K/mcL (1.6-8.9); Red Blood Count 2.57 M/mcL (4.19-5.50); Segmented Neutrophils % 60.5 %
[2018-01-13 05:30] LABS: Lymphocytes # 1.6 K/mcL (0.6-4.6); Platelet Count 95 K/mcL (140-400)
[2018-01-13 05:40] LABS: Calcium 7.7 mg/dL (8.6-10.3)
[2018-01-13 06:07] LABS: Platelet Estimate Slight Decrease (Normal)
[2018-01-13 06:09] LABS: Poikilocytosis 1+ (Not Present)
[2018-01-13] MEDS: Insulin LISPRO 300 UNITS/3 ML VIAL SQ SCH ×4 (07:30→20:15)
[2018-01-13] MEDS: *HR* HYDROcodone/Acet 10/325 mg TABLET PO PRN (07:45)
[2018-01-13] MEDS: Nicotine 14 MG PATCH.TD24 TD SCH (08:42)
[2018-01-13] MEDS: Furosemide 40 MG/4 ML VIAL IVP SCH (08:44)
[2018-01-13] MEDS: Gabapentin 300 MG CAPSULE PO SCH ×2 (08:44→19:56)
[2018-01-13] MEDS: Aspirin Enteric Coated 81 MG Tablet PO SCH (08:45)
--- NOTE | 2018-01-13 10:48 | Nephrology Progress Note ---
Date of Encounter: 01/13/18 Time of Encounter: 09:00 - Assessment and Plan (1) Hyperkalemia Current Visit: Yes Status: Acute Most likely from the spironolactone and reduced renal clearance. Will need more Kayexalate today. I recommend a renal diet (i.e., very low K+ diet) Ascites with peripheral edema: continue diuretics Hypervolemic hyponatremia: continue diuretics, so as to help improve his volume status and therefore help correct the hyponatremia. Since he has a hx of cirrhosis, I would not add Tolvaptan at this time. Continue to follow a renal protective strategy: dose Rx by GFR, avoid nephrotoxins such Bactrim, Contrast and NSAIDs. Will follow with you. Thank you. (2) Hyponatremia Current Visit: Yes Status: Acute See above (3) Chronic kidney disease (CKD), stage III (moderate) Current Visit: Yes Status: Acute See above. Cannot rule out hepatorenal syndrome, which Subjective Principal diagnosis: LISA, Hyperkalemia, Hyponatremia, edema, etc Interval history: Pt was s/e earlier today. I reviewed the sign-out/check-out from my colleague Dr. Cornejo, and I also read both inpatient and outpatient progress notes, labs, med lists, vitals and imaging. 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 He still follows with [facility]. He denied affirm CP or N/V today. He said his PCP is Niurka Arana at [facility]. Objective - Vital Signs Vital signs: Vital Signs Temp Pulse Resp BP Pulse Ox 01/13/18 08:35 63 105/61 96 01/13/18 07:06 98.0 F 64 15 95/59 96 01/13/18 06:45 98.0 F 01/13/18 05:10 97.6 F 01/13/18 03:21 98.0 F 58 16 101/54 95 01/13/18 02:15 97.4 F L 54 16 97 01/13/18 01:07 97.5 F L 57 18 104/61 93 01/13/18 00:05 97.4 F L 01/12/18 22:28 95.3 F L 01/12/18 20:11 95.1 F L 54 20 126/81 100 01/12/18 16:00 97.7 F 49 15 110/71 96 01/12/18 11:39 97.7 F 68 16 130/74 99 Intake and Output 01/12/18 01/13/18 01/13/18 23:59 07:59 15:59 Intake Total 1000 / 1000 50 / 50 150 / 150 Output Total 1100 / 1100 0 / 0 Balance -100 / -100 50 / 50 150 / 150 Intake: Oral 1000 / 1000 50 / 50 150 / 150 Output: Urine 1100 / 1100 0 / 0 Other: Meal Dinner Breakfast Percent of Meal Consumed 100% 50% # Voids 0 0 Weight 91.6 kg Blood Glucose* 138 109 Patient Weight 01/13/18 23:59 Weight 91.6 kg - General Appearance General appearance: Present: well-developed, appears started age, obese, fatigue , frail EENT: Present: ATNC, PERRL, mucous membranes moist Neck: Present: supple Respiratory: Present: clear Cardiology: Present: edema, regular rate, regular rhythm, normal S1, normal S2 Gastrointestinal: Present: normoactive bowel sounds, no tenderness, no guarding Integumentary: Present: no rash, warm and dry Neurologic: Present: no focal deficit, alert and oriented x3 Musculoskeletal: Present: no deformities, no erythema, no cyanosis Psychiatric: Present: mood/affect appropriate, cooperative - Lab 01/13/18 04:35 01/13/18 04:35 Most recent lab results Calcium 7.7 mg/dL (8.6-10.3) L 01/13/18 04:35 Phosphorus 3.4 mg/dL (2.7-4.5) 01/12/18 00:26 Magnesium 1.4 mg/dL (1.6-2.6) L 01/12/18 00:26 - Imaging Kidney/bladder ultrasound: report reviewed (Bilateral nephrolithiasis but no evidence of obstructive uropathy. So no Hydronephrosis. ) Consult Discharge Plan - Plan Referrals: Niurka Arana CNP [Primary Care Provider] -
[2018-01-13] MEDS ORDERED: *HR* Acetylcysteine 20% 600 MG/3 ML ORAL SYRINGE PO SCH (12:00)
[2018-01-13] MEDS ORDERED: Sodium Chloride for inhalation 3 ML VIAL IH SCH (12:00)
--- NOTE | 2018-01-13 12:23 | General Surgery Consult Note ---
<HarveyjacksonCandace sandhu - Last Filed: 01/13/18 13:39> Date of Encounter: 01/13/18 Time of Encounter: 12:20 Assessment and Plan (1) Leg pain, bilateral Current Visit: Yes Status: Acute 52-year-old male with bilateral lower extremity edema. No areas of erythema or warmth. Range of motion slightly limited secondary to pain from edema. Pulses palpable. DVT study of lower extremities is negative. -No general surgical intervention indicated at this time. If further concerns, consider vascular surgery consultation. (2) CHF (congestive heart failure) Current Visit: Yes Status: Acute Managment per primary team and cardiology. Qualifiers: Heart failure type: diastolic Heart failure chronicity: unspecified Qualified Code(s): I50.30 - Unspecified diastolic (congestive) heart failure (3) Cirrhosis, nonalcoholic Current Visit: No Status: Chronic Management per primary team. (4) Pancreas cancer Current Visit: No Status: Chronic Management per primary team. Qualifiers: Pancreatic malignancy location: head of pancreas Qualified Code(s): C25.0 - Malignant neoplasm of head of pancreas (5) Uncontrolled diabetes mellitus Current Visit: Yes Status: Acute Management per primary team. Qualifiers: Diabetes mellitus type: type 1 Diabetes mellitus complication status: with kidney complications Diabetes mellitus complication detail: with chronic kidney disease Chronic kidney disease stage: stage 3 (moderate) Qualified Code(s): E10.22 - Type 1 diabetes mellitus with diabetic chronic kidney disease ; E10.65 - Type 1 diabetes mellitus with hyperglycemia; E10.65 - Type 1 diabetes mellitus with hyperglycemia; E10.65 - Type 1 diabetes mellitus with hyperglycemia; E10.65 - Type 1 diabetes mellitus with hyperglycemia; N18.3 - Chronic kidney disease, stage 3 (moderate); N18.3 - Chronic kidney disease, stage 3 (moderate) (6) Hyperkalemia Current Visit: Yes Status: Acute management per primary team. History of Present Illness Consult date: 01/13/18 Reason for consult: other (Bilateral lower extremity edema) Requesting physician: Nkechi Euceda History of present illness: Mr. Trimble is a 52-year-old male with past medical history congestive heart failure, liver cirrhosis, fatty liver disease, diabetes, chronic kidney disease , and history of pancreatic cancer. He presented to [facility] on 01/11/2018 with complaints of burning in his bilateral lower extremities. He was found to be hyperkalemic and hyperglycemic. He was admitted to the hospital for management of these issues as well as possible acute exacerbation of congestive heart failure with fluid overload. Cardiology was consulted and a transthoracic echocardiogram was performed which demonstrated an LVEF of 60-65%, moderate diastolic dysfunction, no segmental wall motion abnormalities. BNP in the 600s. They recommended IV Lasix, strict I and O's, daily weights, and fluid restriction. Ultrasound of bilateral lower extremities was negative for DVT. This morning, patient is resting comfortably. He denies any chest pain, palpitations, shortness of breath or diaphoresis denies any abdominal tenderness, fever, chills, diarrhea, constipation, nausea, or vomiting. He denies any melena or hematochezia. He denies orthopnea. He denies any rashes. He states his lower extremity edema is mildly improved since hospital admission. He states his pain is secondary to the swelling which is painful when he moves his legs. He does report a history of pancreatic cancer. He states he had a Whipple procedure 3 years ago. Past Med Surg Social Fam HX - Past Medical History Attestation: Yes The following information was validated with the patient. Source: patient Medical history: cancer (Pancreatic), coronary artery disease, diabetes Psychiatric history: anxiety, bipolar, depression - Past Surgical History Surgical History: cancer surgery, cholecystectomy, colectomy, coronary bypass ( CABG), splenectomy, other - Social History Smoking Status: Current every day smoker Smokeless Tobacco Status: No Alcohol use: none Drug use: none - Family History Father Living Status: Hx Family Cardiac Disorders: Yes Hx Family Respiratory Disorders: Yes (copd) Hx Family Cancer: Yes (LIVER, LEUKEMIA, BONE) Hx Family GI Disorders: No Hx Family Endocrine Disorder: Yes Hx Family Neuromuscular Disorders: No Hx Family Neurologic Disorders: No Hx Family HEENT Disorders: No Hx Family Autoimmune Disorders: No Medications and Allergies Aspirin [Adult Low Dose Aspirin EC] 81 mg PO DAILY 10/29/15 [History] Atorvastatin [Lipitor] 40 mg PO HS 10/29/15 [History] Furosemide [Lasix] 40 mg PO Q48H 10/29/15 [History] Insulin ASPART [NovoLOG] 0 unit SQ TIDWM 10/29/15 [History] Levothyroxine [Synthroid] 175 mcg PO 0630 10/29/15 [History] Omeprazole [PriLOSEC] 40 mg PO DAILY 10/29/15 [History] Spironolactone [Aldactone] 50 mg PO DAILY 10/29/15 [History] Prochlorperazine Maleate [Compazine] 10 mg PO Q6HR PRN #120 tablet 11/17/15 [Rx] Insulin Degludec [Tresiba Flextouch U-100] 15 - 20 unit SQ HS 04/26/17 [History] Ropinirole HCl [Requip] 3 mg PO HS #30 tablet 07/07/17 [Rx] Lipase/Protease/Amylase [Creon Dr 6,000 Units Capsule] 4 each PO TIDWM #480 cap 07/19/17 [Rx] Ciprofloxacin HCl [Cipro] 500 mg PO BID 01/11/18 [History] HYDROcodone/Acet 10/325 mg [[place] 10-325 mg] 1 tab PO BID PRN 01/11/18 [History] Nadolol [Nadolol] 20 mg PO DAILY 01/11/18 [History] Rifaximin [Xifaxan] 550 mg PO BID 01/11/18 [History] Sennosides/Docusate Sodium [Senna Plus] 2 tab PO HS PRN 01/11/18 [History] 3 Allergy/AdvReac Type Severity Reaction Status Date / Time metformin Allergy Unknown unknown Verified 08/03/17 11:06 morphine Allergy Unknown Unknown Verified 08/03/17 11:06 Penicillins Allergy Unknown Rash Verified 08/03/17 11:06 Review of Systems All systems PM: The remainder of the systems were reviewed and are negative - Constitutional as per HPI, no chills, no fever(s), no weight loss - Cardiovascular leg edema, pedal edema, no chest pain, no chest pain at rest, no diaphoresis, no dyspnea, no dyspnea on exertion, no irregular heart rhythm, no radiating jaw , neck or arm pain, no lightheadedness, no orthopnea, no palpitations, no paroxysmal nocturnal dyspnea - Respiratory no cough, no dyspnea - Gastrointestinal no abdominal pain, no change in bowel habits, no constipation, no cramping, no diarrhea, no hematemesis, no hematochezia, no melena - Genitourinary no dysuria, no hematuria - Musculoskeletal limited range of motion (Around the knees secondary to swelling.), no muscle cramps, no muscle weakness, no myalgias, no numbness - Integumentary no rash, no wounds - Neurological no focal weakness, no numbness, no syncope General Surgery Exam Initial Vital Signs Temp Pulse Resp BP Pulse Ox 98.5 F 56 18 146/78 100 01/11/18 14:05 01/11/18 14:05 01/11/18 14:05 01/11/18 14:05 01/11/18 14:05 - General physical appearance well developed, well nourished, no distress, other (Skin with pallor) - Eyes normal ocular movement - ENT poor shelter, atraumatic, normocephalic - Respiratory normal expansion, normal respiratory effort crackles: left - Cardiovascular Cardiovascular exam: Present: RRR, NR, regular rhythm, murmurs - Expanded Cardiovascular Exam Peripheral pulses: 2+: Posterior Tibialis (L), Posterior Tibialis (R), Dorsalis Pedis (L) PM, Dorsalis Pedis (R) PM - Abdomen Abdomen general surgery: Present: bowel sounds present, soft, non tender, organomegaly. Absent: tympanic, guarding, rebound, rigid Hernia: Present: none - Musculoskeletal Present: other (Patient with bilateral lower extremity edema, 3+ pitting edema. No erythema or warmth noted.) - Psychiatric Psychiatric general surgery: Present: A&Ox3, speech is normal, memory intact Exam Initial Vital Signs Temp Pulse Resp BP Pulse Ox 98.5 F 56 18 146/78 100 01/11/18 14:05 01/11/18 14:05 01/11/18 14:05 01/11/18 14:05 01/11/18 14:05 Results - Labs 01/13/18 04:35 01/13/18 04:35 Abnormal lab results RBC 2.57 M/mcL (4.19-5.50) L 01/13/18 04:35 Hgb 7.6 g/dL (12.9-16.9) L 01/13/18 04:35 Hct 21.4 % (37.5-50.1) L 01/13/18 04:35 RDW 18.1 % (11.5-14.5) H 01/13/18 04:35 Plt Count 95 K/mcL (140-400) L 01/13/18 04:35 Nucleated RBCs/100 WBC 0.3 /100 WBC (0) H 01/11/18 14:15 Platelet Estimate Slight Decrease (Normal) L 01/13/18 04:35 Immature Plt Fraction 16.0 % (1.1-6.1) H 01/13/18 04:35 Poikilocytosis 1+ (Not Present) A 01/13/18 04:35 Anisocytosis 1+ (Not Present) A 01/12/18 00:26 Microcytosis Present (Not Present) A 01/12/18 00:26 Acanthocytes (Spur) 1+ (Not Present) A 01/12/18 00:26 Schistocytes 1+ (Not Present) A 01/12/18 00:26 PT 20.5 Seconds (9.4-12.1) H 01/12/18 00:26 Sodium 132 mEq/L (136-145) L 01/13/18 04:35 Potassium 6.0 mEq/L (3.5-5.1) H 01/13/18 04:35 Chloride 109 mEq/L (98-107) H 01/13/18 04:35 Carbon Dioxide 20 mEq/L (23-29) L 01/13/18 04:35 Creatinine 1.88 mg/dL (0.70-1.30) H 01/13/18 04:35 Est GFR ( Amer) 46 (> 60) L 01/13/18 04:35 Est GFR (Non-Af Amer) 38 (> 60) L 01/13/18 04:35 Glucose 116 mg/dL (70-105) H 01/13/18 04:35 Calculated Osmolality 274 (280-300) L 01/13/18 04:35 Calcium 7.7 mg/dL (8.6-10.3) L 01/13/18 04:35 Magnesium 1.4 mg/dL (1.6-2.6) L 01/12/18 00:26 Alkaline Phosphatase 140 Units/L (34-104) H 01/12/18 00:26 Ammonia 139 mcmol/L (16-53) H 01/12/18 23:08 B-Natriuretic Peptide 674 pg/mL (Less than 100) H 01/11/18 14:41 Serum Total Protein 5.8 g/dL (6.4-8.9) L 01/12/18 00:26 Albumin 1.7 g/dL (3.5-5.7) L 01/12/18 00:26 Globulin 4.1 g/dL (2.4-3.5) H 01/12/18 00:26 Albumin/Globulin Ratio 0.4 (1.1-2.2) L 01/12/18 00:26 Vitamin B12 1176 pg/mL (250-1100) H 01/13/18 04:35 25-OH Vitamin D Total 6 ng/mL (30-80) L 01/12/18 12:15 Urine Glucose (UA) >=1000 mg/dL (Normal) H 01/11/18 16:45 Urine Blood Large (Negative) H 01/11/18 16:45 Urine Microscopic RBC 50-100 per hpf (0-3) H 01/11/18 16:45 Diabetes panel 01/12/18 01/13/18 Range/Units 23:08 04:35 Sodium 132 L (136-145) mEq/L Potassium 6.1 H 6.0 H (3.5-5.1) mEq/L Chloride 109 H (98-107) mEq/L Carbon Dioxide 20 L (23-29) mEq/L BUN 11 (6-20) mg/dL Creatinine 1.88 H (0.70-1.30) mg/dL Glucose 116 H (70-105) mg/dL Calcium 7.7 L (8.6-10.3) mg/dL Thyroid panel 01/13/18 Range/Units 04:35 TSH 3.222 (0.340-5.600) mcIU/mL Calcium panel 01/12/18 01/13/18 Range/Units 12:15 04:35 Calcium 7.7 L (8.6-10.3) mg/dL 25-OH Vitamin D Total 6 L (30-80) ng/mL Pituitary panel 01/12/18 01/13/18 01/13/18 Range/Units 23:08 04:35 04:35 Sodium 132 L (136-145) mEq/L Potassium 6.1 H 6.0 H (3.5-5.1) mEq/L Chloride 109 H (98-107) mEq/L Carbon Dioxide 20 L (23-29) mEq/L BUN 11 (6-20) mg/dL Creatinine 1.88 H (0.70-1.30) mg/dL Glucose 116 H (70-105) mg/dL Calcium 7.7 L (8.6-10.3) mg/dL TSH 3.222 (0.340-5.600) mcIU/mL Adrenal panel 01/12/18 01/13/18 Range/Units 23:08 04:35 Sodium 132 L (136-145) mEq/L Potassium 6.1 H 6.0 H (3.5-5.1) mEq/L Chloride 109 H (98-107) mEq/L Carbon Dioxide 20 L (23-29) mEq/L BUN 11 (6-20) mg/dL Creatinine 1.88 H (0.70-1.30) mg/dL Glucose 116 H (70-105) mg/dL Calcium 7.7 L (8.6-10.3) mg/dL All other labs normal. Consult Discharge Plan - Plan Referrals: Niurka Arana, ELKIN [Primary Care Provider] - <Hiram Miranda - Last Filed: 01/13/18 19:15> Date of Encounter: 01/13/18 Review of Systems All systems PM: The remainder of the systems were reviewed and are negative General Surgery Exam Initial Vital Signs Temp Pulse Resp BP Pulse Ox 98.5 F 56 18 146/78 100 01/11/18 14:05 01/11/18 14:05 01/11/18 14:05 01/11/18 14:05 01/11/18 14:05 Exam Initial Vital Signs Temp Pulse Resp BP Pulse Ox 98.5 F 56 18 146/78 100 01/11/18 14:05 01/11/18 14:05 01/11/18 14:05 01/11/18 14:05 01/11/18 14:05 Results - Labs 01/13/18 04:35 01/13/18 04:35 Abnormal lab results RBC 2.57 M/mcL (4.19-5.50) L 01/13/18 04:35 Hgb 7.6 g/dL (12.9-16.9) L 01/13/18 04:35 Hct 21.4 % (37.5-50.1) L 01/13/18 04:35 RDW 18.1 % (11.5-14.5) H 01/13/18 04:35 Plt Count 95 K/mcL (140-400) L 01/13/18 04:35 Nucleated RBCs/100 WBC 0.3 /100 WBC (0) H 01/11/18 14:15 Platelet Estimate Slight Decrease (Normal) L 01/13/18 04:35 Immature Plt Fraction 16.0 % (1.1-6.1) H 01/13/18 04:35 Poikilocytosis 1+ (Not Present) A 01/13/18 04:35 Anisocytosis 1+ (Not Present) A 01/12/18 00:26 Microcytosis Present (Not Present) A 01/12/18 00:26 Acanthocytes (Spur) 1+ (Not Present) A 01/12/18 00:26 Schistocytes 1+ (Not Present) A 01/12/18 00:26 PT 20.5 Seconds (9.4-12.1) H 01/12/18 00:26 Sodium 132 mEq/L (136-145) L 01/13/18 04:35 Potassium 6.0 mEq/L (3.5-5.1) H 01/13/18 04:35 Chloride 109 mEq/L (98-107) H 01/13/18 04:35 Carbon Dioxide 20 mEq/L (23-29) L 01/13/18 04:35 Creatinine 1.88 mg/dL (0.70-1.30) H 01/13/18 04:35 Est GFR ( Amer) 46 (> 60) L 01/13/18 04:35 Est GFR (Non-Af Amer) 38 (> 60) L 01/13/18 04:35 Glucose 116 mg/dL (70-105) H 01/13/18 04:35 Hemoglobin A1c 11.1 % (-5.6) H 01/12/18 00:26 Calculated Osmolality 274 (280-300) L 01/13/18 04:35 Calcium 7.7 mg/dL (8.6-10.3) L 01/13/18 04:35 Magnesium 1.4 mg/dL (1.6-2.6) L 01/12/18 00:26 Alkaline Phosphatase 140 Units/L (34-104) H 01/12/18 00:26 Ammonia 139 mcmol/L (16-53) H 03/01/18 23:08 B-Natriuretic Peptide 674 pg/mL (Less than 100) H 01/11/18 14:41 Serum Total Protein 5.8 g/dL (6.4-8.9) L 01/12/18 00:26 Albumin 1.7 g/dL (3.5-5.7) L 01/12/18 00:26 Globulin 4.1 g/dL (2.4-3.5) H 01/12/18 00:26 Albumin/Globulin Ratio 0.4 (1.1-2.2) L 01/12/18 00:26 Vitamin B12 1176 pg/mL (250-1100) H 01/13/18 04:35 25-OH Vitamin D Total 6 ng/mL (30-80) L 01/12/18 12:15 Urine Glucose (UA) >=1000 mg/dL (Normal) H 01/11/18 16:45 Urine Blood Large (Negative) H 01/11/18 16:45 Urine Microscopic RBC 50-100 per hpf (0-3) H 01/11/18 16:45 Diabetes panel 01/12/18 01/12/18 01/13/18 Range/Units 00:26 23:08 04:35 Sodium 132 L (136-145) mEq/L Potassium 6.1 H 6.0 H (3.5-5.1) mEq/L Chloride 109 H (98-107) mEq/L Carbon Dioxide 20 L (23-29) mEq/L BUN 11 (6-20) mg/dL Creatinine 1.88 H (0.70-1.30) mg/dL Glucose 116 H (70-105) mg/dL Hemoglobin A1c 11.1 H ( - 5.6) % Calcium 7.7 L (8.6-10.3) mg/dL Thyroid panel 01/13/18 Range/Units 04:35 TSH 3.222 (0.340-5.600) mcIU/mL Calcium panel 01/13/18 Range/Units 04:35 Calcium 7.7 L (8.6-10.3) mg/dL Pituitary panel 01/12/18 01/13/18 01/13/18 Range/Units 23:08 04:35 04:35 Sodium 132 L (136-145) mEq/L Potassium 6.1 H 6.0 H (3.5-5.1) mEq/L Chloride 109 H (98-107) mEq/L Carbon Dioxide 20 L (23-29) mEq/L BUN 11 (6-20) mg/dL Creatinine 1.88 H (0.70-1.30) mg/dL Glucose 116 H (70-105) mg/dL Calcium 7.7 L (8.6-10.3) mg/dL TSH 3.222 (0.340-5.600) mcIU/mL Adrenal panel 01/12/18 01/13/18 Range/Units 23:08 04:35 Sodium 132 L (136-145) mEq/L Potassium 6.1 H 6.0 H (3.5-5.1) mEq/L Chloride 109 H (98-107) mEq/L Carbon Dioxide 20 L (23-29) mEq/L BUN 11 (6-20) mg/dL Creatinine 1.88 H (0.70-1.30) mg/dL Glucose 116 H (70-105) mg/dL Calcium 7.7 L (8.6-10.3) mg/dL All other labs normal. - Attending Attestation I have personally seen and examined the patient. I have reviewed pertinent labs , imaging, progress notes, including this one. I agree with the above assessment and plan and wish to include the following... 52M with multiple comorbidities including CAD s/p CABG, cirrhosis 2/2 MORALES, DM I s/p whipple vs near total pancreatectomy, stage III CKD who presents with worsening lower extremity edema; No evidence of vascular obstruction on CT. Non peritoneal on exam, but he does have bilateral pitting edema. Strongly recommend nephrology consultation as he will need careful monitoring of his electrolytes and water balance. No acute surgical intervention.
[2018-01-13 13:29] LABS: Hemoglobin A1C 11.1 %
--- NOTE | 2018-01-13 14:07 | Cardiology Progress Note ---
Date of Encounter: 01/13/18 Time of Encounter: 10:30 Assessment and Plan (1) CHF (congestive heart failure) Current Visit: Yes Status: Acute Per cardiology: -Significant lower extremity edema. 2+ bilateral lower extremity pitting edema. -BNP 600s -TTE with LVEF 60-65%, moderate diastolic dysufnction, no segmental wall motion abnormalities. -Chest x-ray with mild vascular changes. -ON IV lasix. -Net positive fluid balance, however weight improved and patient reports improvement in symptoms. -Strict i/os, daily weighs, fluid restriction. -Will continue to monitor. Qualifiers: Heart failure type: diastolic Heart failure chronicity: unspecified Qualified Code(s): I50.30 - Unspecified diastolic (congestive) heart failure Discussion w patient/family: The assessment and plan as outlined above was discussed with the patient who expressed understanding and agreement. All questions were answered. Thank you for involving us in the care of your patient. Please call with any questions. Discussed and reviewed with . Subjective Principal diagnosis: LISA, Hyperkalemia, Hyponatremia, edema, etc Interval history: Patient reports breathing is better today. States he feels that edema is slightly improved today. Objective Vital Signs Temperature 98.5 F 01/11/18 14:05 Pulse Rate 56 01/11/18 14:05 Respiratory Rate 18 01/11/18 14:05 Blood Pressure 146/78 01/11/18 14:05 O2 Sat by Pulse Oximetry 100 01/11/18 14:05 Temperature 98.0 F 01/13/18 07:06 Pulse Rate 63 01/13/18 08:35 Respiratory Rate 15 01/13/18 07:06 Blood Pressure 105/61 01/13/18 08:35 O2 Sat by Pulse Oximetry 96 01/13/18 08:35 Oxygen Delivery Oxygen Delivery Room Air General: Conversant, No Apparent Distress HEENT: Atraumatic, Normocephaly, Mucus Membranes Moist Neck: No JVD, Normal carotid pulses Cardiac: Reg Rate and Rhythm, Normal S1 and S2, No Murmur Lungs: Normal Breath Sounds, No Wheeze, Rales, Rhonchi Neuro: Alert and responsive, No focal deficits noted Abdomen: Soft, Non-Tender Skin: No rashes noted on visualized skin Musculoskeletal: No Chest Wall Tenderness Extremities: No Clubbing, No Cyanosis, Normal Pulses, Other (2+ bilateral lower extremity pitting edema noted. ) Results 01/13/18 04:35 01/13/18 04:35 Lab Results Impressions Chest X-Ray 01/11/18 16:21 IMPRESSION: Cardiomegaly with mild vascular congestive change. D/ / 01/11/2018 17:12:47 Cabrera Boggs MD / [email or web address] Interpreting Provider: Cabrera Boggs MD Retroperitoneum Ultrasound 01/12/18 18:00 IMPRESSION: Bilateral nephrolithiasis but no evidence of obstructive uropathy. Right renal cyst. D/ / 01/12/2018 19:53:55 India Bradley MD / [email or web address] Interpreting Provider: India Bradley MD Active Medications Hydrocodone Bitart/Acetaminophen ([place] 10-325 Mg) 1 each PO BID PRN PRN Reason: Pain Stop: 07/13/18 20:33 Last Admin: 01/13/18 07:45 Dose: 1 each Lipase/Protease/Amylase (Creon Dr 6,000 Units Capsule) 4 each PO TIDWM [facility] Stop: 07/14/18 08:01 Last Admin: 01/13/18 12:21 Dose: 4 each Aspirin (Aspirin Ec) 81 mg PO DAILY [facility] Stop: 07/14/18 09:01 Last Admin: 01/13/18 08:45 Dose: 81 mg Atorvastatin Calcium (Lipitor) 40 mg PO HS [facility] Stop: 07/13/18 21:01 Last Admin: 01/12/18 22:12 Dose: 40 mg Dextrose/Water (Dextrose 50% (Syg)) 25 ml IVP AD PRN PRN Reason: Hypoglycemia Stop: 07/13/18 20:28 Diphenhydramine HCl (Benadryl) 25 mg IVP Q6HR PRN PRN Reason: Itching Stop: 07/14/18 21:28 Ergocalciferol (Drisdol (50,000 Unit)) 50,000 unit PO QWEEK [facility] Stop: 03/30/18 22:16 Last Admin: 01/13/18 00:15 Dose: 50,000 unit Furosemide (Lasix) 40 mg IVP DAILY [facility] Stop: 07/14/18 09:01 Last Admin: 01/13/18 08:44 Dose: 40 mg Gabapentin (Neurontin) 300 mg PO BID [facility] Stop: 07/14/18 21:01 Last Admin: 01/13/18 08:44 Dose: 300 mg Glucagon (Glucagen) 1 mg IM ONCE PRN PRN Reason: Hypoglycemia Stop: 07/13/18 20:28 Glucose (Gluctose) 15 gm PO ONCE PRN PRN Reason: Hypoglycemia Stop: 07/13/18 20:28 Glucose (Gluctose) 30 gm PO ONCE PRN PRN Reason: Hypoglycemia Stop: 07/13/18 20:28 Dextrose (Dextrose 5%) 1,000 mls @ 100 mls/hr IVC .Q10H PRN PRN Reason: HYPOGLYCEMIA Stop: 07/13/18 20:28 Insulin Detemir (Levemir) 15 unit SQ HS [facility] Stop: 07/14/18 21:01 Last Admin: 01/13/18 00:16 Dose: 15 unit Insulin Human Lispro (Humalog) 0 units SQ HS [facility] PRN Reason: Protocol Stop: 07/13/18 21:01 Last Admin: 01/12/18 22:13 Dose: Not Given Insulin Human Lispro (Humalog) 0 units SQ TIDAC [facility] PRN Reason: Protocol Stop: 07/14/18 07:31 Last Admin: 01/13/18 12:23 Dose: Not Given Levothyroxine Sodium (Synthroid) 175 mcg PO 0630 [facility] Stop: 07/14/18 06:31 Last Admin: 01/13/18 06:33 Dose: 175 mcg Nadolol (Corgard) 20 mg PO DAILY [facility] Stop: 07/14/18 09:01 Last Admin: 01/13/18 08:44 Dose: 20 mg Naloxone HCl (Narcan) 0.4 mg IVP Q2MIN PRN PRN Reason: SEE COMMENTS Stop: 07/13/18 20:23 Nicotine (Nicoderm) 14 mg TD DAILY [facility] PRN Reason: Protocol Stop: 07/15/18 09:01 Last Admin: 01/13/18 08:42 Dose: 14 mg Omeprazole (Prilosec) 40 mg PO DAILY@0730 [facility] PRN Reason: Protocol Stop: 07/14/18 07:31 Last Admin: 01/13/18 08:44 Dose: 40 mg Prochlorperazine Maleate (Compazine) 10 mg PO Q6HR PRN PRN Reason: Nausea Stop: 07/13/18 20:33 Last Admin: 01/13/18 07:45 Dose: 10 mg Rifaximin (Xifaxan) 400 mg PO BID [facility] Stop: 07/13/18 21:01 Last Admin: 01/13/18 08:42 Dose: 400 mg Ropinirole HCl (Requip) 3 mg PO HS [facility] Stop: 07/13/18 21:01 Last Admin: 01/12/18 22:11 Dose: 3 mg Senna/Docusate Sodium (Senna Plus) 2 each PO HS PRN; Protocol PRN Reason: Constipation Stop: 07/13/18 20:56 Laboratory Tests 01/13/18 01/13/18 04:35 04:35 Hgb 7.6 L Plt Count 95 L Potassium 6.0 H Creatinine 1.88 H - Imaging and Cardiology Chest Xray: report reviewed Echo: report reviewed - EKG Interpretation EKG results cardiology: other (Telemetry reviewd with average HR 57, SB.) Consult Discharge Plan - Plan Referrals: Niurka Arana, ELKIN [Primary Care Provider] -
[2018-01-13 14:25] LABS: Protein/Creatinine Ratio,Urine 0.07 mg/mg (0.00-0.20); Sodium, Urine 99.8 mEq/L
--- NOTE | 2018-01-13 14:44 | Internal Med Progress Note ---
Date of Encounter: 01/13/18 Time of Encounter: 14:41 - Assessment and plan (1) Leg pain, bilateral Current Visit: Yes Status: Acute Assessment and plan: - DVT negative for thrombi - Surgery consulted, no further intervention needed - TSH within normal limits - Continue Gabapentin - Continue diuresis - Lasix 40 mg IV daily (2) Hyperkalemia Current Visit: Yes Status: Acute Assessment and plan: -Lasix 40 mg IV daily -Spironolactone held -Continue telemetry monitoring - repeat EKG for monitoring -Nephrology following recommendations appreciated On Kayexalate (3) CHF (congestive heart failure) Current Visit: Yes Status: Acute Assessment and plan: Fluid restrict IV Lasix Monitor I/Os Cardiology following, recommendations appreciated. Qualifiers: Heart failure type: diastolic Heart failure chronicity: unspecified Qualified Code(s): I50.30 - Unspecified diastolic (congestive) heart failure (4) Cirrhosis Current Visit: Yes Status: Acute Assessment and plan: Patient has cirrhosis due to fatty liver. Continue rifaximin and medication for constipation. Qualifiers: Hepatic cirrhosis type: other cirrhosis Qualified Code(s): K74.69 - Other cirrhosis of liver (5) Uncontrolled diabetes mellitus Current Visit: Yes Status: Acute Assessment and plan: Glucose improved. Continue levemir dose of 15 units HS and sliding scale insulin Qualifiers: Diabetes mellitus type: type 1 Diabetes mellitus complication status: with kidney complications Diabetes mellitus complication detail: with chronic kidney disease Chronic kidney disease stage: stage 3 (moderate) Qualified Code(s): E10.22 - Type 1 diabetes mellitus with diabetic chronic kidney disease ; E10.65 - Type 1 diabetes mellitus with hyperglycemia; E10.65 - Type 1 diabetes mellitus with hyperglycemia; E10.65 - Type 1 diabetes mellitus with hyperglycemia; E10.65 - Type 1 diabetes mellitus with hyperglycemia; N18.3 - Chronic kidney disease, stage 3 (moderate); N18.3 - Chronic kidney disease, stage 3 (moderate) (6) Chronic kidney disease (CKD), stage III (moderate) Current Visit: Yes Status: Acute Assessment and plan: Nephrology following, recommendations appreciated - Medications renally dosed (7) Pancreas cancer Current Visit: No Status: Chronic Assessment and plan: S/P surgery 3 yrs ago. Continue Creon. Continue follow-up with oncology as outpatient Qualifiers: Pancreatic malignancy location: head of pancreas Qualified Code(s): C25.0 - Malignant neoplasm of head of pancreas (8) Anemia Current Visit: Yes Status: Acute Assessment and plan: Due to chronic kidney disease. He does have worsening hemoglobin today at 7.6. Continue to trend H&H, follow-up iron studies and check occult stool. Qualifiers: Anemia type: due to chronic kidney disease Chronic kidney disease stage: stage 3 (moderate) Qualified Code(s): N18.3 - Chronic kidney disease, stage 3 (moderate); D63.1 - Anemia in chronic kidney disease; D63.1 - Anemia in chronic kidney disease (9) DVT prophylaxis Current Visit: Yes Status: Acute Assessment and plan: EPCD. Not place patient on heparin because of thrombocytopenia - Subjective Interval history: Patient has history of cirrhosis, pancreatic cancer s/p Whipple surgery, DM, HTn , CAD s/p CABG. He presented to ED for bilateral leg pain, burning and cramping for 4 days. He denies any numbness/tingling. Complains of some mild weakness. He has no SOB, CP, n/v. He was found to have elevated glucose in 500s and also hyperkalemia at 6.5. He was given Lasix and bicarbonate in ED as well as 10 units IV insulin. He appears to be in mild CHF exacerbation as well and so he is being diuresed and States he is fatigued today, even by getting up and walking. He felt nauseated and had an episode of vomiting. - Constitutional Vitals: Temp Pulse Resp BP Pulse Ox 98.0 F 63 15 105/61 96 01/13/18 07:06 01/13/18 08:35 01/13/18 07:06 01/13/18 08:35 01/13/18 08:35 General appearance: Present: A&O X 3, no acute distress, answers questions appropriately Exam: HEENT: No JVD CVS: RRR Lungs: CTAB Abdomen: Soft, NT/ND Ext: 2+ bilateral lower extremity pitting edema. Left LE worse than right. No erythema Internal Medicine: Result - Labs CBC & Chem 7: 01/13/18 04:35 01/13/18 04:35 Labs: Short CBC 01/13/18 Range/Units 04:35 WBC 7.5 (4.3-11.1) K/mcL Hgb 7.6 L (12.9-16.9) g/dL Hct 21.4 L (37.5-50.1) % Plt Count 95 L (140-400) K/mcL Neutrophils # 4.5 (1.6-8.9) K/mcL BMP 01/12/18 01/13/18 23:08 04:35 Sodium 132 L Potassium 6.1 H 6.0 H Chloride 109 H Carbon Dioxide 20 L BUN 11 Creatinine 1.88 H Glucose 116 H Calcium 7.7 L - ABG Interpretation ABG results: PT/INR, D-dimer PT 20.5 Seconds (9.4-12.1) H 01/12/18 00:26 - Impressions Impressions Retroperitoneum Ultrasound 01/12/18 18:00 IMPRESSION: Bilateral nephrolithiasis but no evidence of obstructive uropathy. Right renal cyst. D/ / 01/12/2018 19:53:55 India Bradley MD / chris Interpreting Provider: India Bradley MD Consult Discharge Plan - Plan Referrals: Niurka Arana, ELKIN [Primary Care Provider] -
[2018-01-14 05:58] LABS: Hemoglobin 7.3 g/dL (12.9-16.9); Red Cell Distribution Width 18.3 % (11.5-14.5)
[2018-01-14 06:01] LABS: Basophils % 0.4 %; Eosinophils # 0.3 K/mcL (0.0-0.6); Hematocrit 20.5 % (37.5-50.1); Immature Granulocytes % 0.1 % (0-4); Immature Platelets 16.5 % (1.1-6.1); Lymphocytes % 20.6 %; Mean Corpuscular HGB Conc 35.6 g/dL (31.6-35.5); Mean Corpuscular Hemoglobin 29.1 pg (28.0-33.3); Mean Corpuscular Volume 81.7 fL (83.0-100.0); Monocytes # 0.9 K/mcL (0.0-1.3); Neutrophils # 4.7 K/mcL (1.6-8.9); Red Blood Count 2.51 M/mcL (4.19-5.50); Segmented Neutrophils % 62.9 %
[2018-01-14 06:10] LABS: Lymphocytes # 1.6 K/mcL (0.6-4.6); Platelet Count 94 K/mcL (140-400)
[2018-01-14 06:18] LABS: Calcium 7.6 mg/dL (8.6-10.3); Magnesium 1.5 mg/dL (1.6-2.6); Phosphorous 4.4 mg/dL (2.7-4.5); Potassium 5.2 mEq/L (3.5-5.1)
[2018-01-14] MEDS: Furosemide 40 MG/4 ML VIAL IVP SCH (07:52)
[2018-01-14] MEDS: Nicotine 14 MG PATCH.TD24 TD SCH (07:52)
[2018-01-14] MEDS: Aspirin Enteric Coated 81 MG Tablet PO SCH (07:52)
[2018-01-14] MEDS: Gabapentin 300 MG CAPSULE PO SCH (07:52)
[2018-01-14] MEDS: Insulin LISPRO 300 UNITS/3 ML VIAL SQ SCH ×4 (07:53→20:19)
[2018-01-14] MEDS ORDERED: Magnesium Sulfate 2 GM in D5% in Water 100 ML IVPB ONE (08:23)
--- NOTE | 2018-01-14 08:34 | Internal Med Progress Note ---
Date of Encounter: 01/14/18 - Assessment and plan (1) Leg pain, bilateral Current Visit: Yes Status: Acute (2) Hyperkalemia Current Visit: Yes Status: Acute (3) CHF (congestive heart failure) Current Visit: Yes Status: Acute Qualifiers: Heart failure type: diastolic Heart failure chronicity: unspecified Qualified Code(s): I50.30 - Unspecified diastolic (congestive) heart failure (4) Cirrhosis Current Visit: Yes Status: Acute Qualifiers: Hepatic cirrhosis type: other cirrhosis Qualified Code(s): K74.69 - Other cirrhosis of liver (5) Uncontrolled diabetes mellitus Current Visit: Yes Status: Acute Qualifiers: Diabetes mellitus type: type 1 Diabetes mellitus complication status: with kidney complications Diabetes mellitus complication detail: with chronic kidney disease Chronic kidney disease stage: stage 3 (moderate) Qualified Code(s): E10.22 - Type 1 diabetes mellitus with diabetic chronic kidney disease ; E10.65 - Type 1 diabetes mellitus with hyperglycemia; E10.65 - Type 1 diabetes mellitus with hyperglycemia; E10.65 - Type 1 diabetes mellitus with hyperglycemia; E10.65 - Type 1 diabetes mellitus with hyperglycemia; N18.3 - Chronic kidney disease, stage 3 (moderate); N18.3 - Chronic kidney disease, stage 3 (moderate) (6) Chronic kidney disease (CKD), stage III (moderate) Current Visit: Yes Status: Acute (7) Pancreas cancer Current Visit: No Status: Chronic Qualifiers: Pancreatic malignancy location: head of pancreas Qualified Code(s): C25.0 - Malignant neoplasm of head of pancreas (8) Anemia Current Visit: Yes Status: Acute Qualifiers: Anemia type: due to chronic kidney disease Chronic kidney disease stage: stage 3 (moderate) Qualified Code(s): N18.3 - Chronic kidney disease, stage 3 (moderate); D63.1 - Anemia in chronic kidney disease; D63.1 - Anemia in chronic kidney disease (9) DVT prophylaxis Current Visit: Yes Status: Acute - Subjective Interval history: Patient has history of cirrhosis, pancreatic cancer s/p Whipple surgery, DM, HTn , CAD s/p CABG. He presented to ED for bilateral leg pain, burning and cramping for 4 days. He denies any numbness/tingling. Complains of some mild weakness. He has no SOB, CP, n/v. He was found to have elevated glucose in 500s and also hyperkalemia at 6.5. He was given Lasix and bicarbonate in ED as well as 10 units IV insulin. He appears to be in mild CHF exacerbation as well and so he is being diuresed and States he is fatigued today, even by getting up and walking. He felt nauseated and had an episode of vomiting. - Constitutional Vitals: Temp Pulse Resp BP Pulse Ox 97.4 F L 47 17 139/75 97 01/14/18 07:00 01/14/18 07:00 01/14/18 07:00 01/14/18 07:00 01/14/18 07:00 General appearance: Present: A&O X 3, no acute distress, answers questions appropriately Internal Medicine: Result - Labs CBC & Chem 7: 01/14/18 05:16 01/14/18 05:16 Labs: Short CBC 01/14/18 Range/Units 05:16 WBC 7.5 (4.3-11.1) K/mcL Hgb 7.3 L (12.9-16.9) g/dL Hct 20.5 L (37.5-50.1) % Plt Count 94 L (140-400) K/mcL Neutrophils # 4.7 (1.6-8.9) K/mcL BMP 01/14/18 05:16 Sodium 136 Potassium 5.2 H Chloride 111 H Carbon Dioxide 22 L BUN 13 Creatinine 2.02 H Glucose 54 L Calcium 7.6 L - ABG Interpretation ABG results: PT/INR, D-dimer PT 20.5 Seconds (9.4-12.1) H 01/12/18 00:26 Consult Discharge Plan - Plan Referrals: Niurka Arana, ELKIN [Primary Care Provider] -
--- NOTE | 2018-01-14 11:04 | Cardiology Progress Note ---
Date of Encounter: 01/14/18 Time of Encounter: 10:30 Assessment and Plan (1) CHF (congestive heart failure) Current Visit: Yes Status: Acute Per cardiology: -Significant lower extremity edema. 2+ bilateral lower extremity pitting edema. -BNP 600s -TTE with LVEF 60-65%, moderate diastolic dysufnction, no segmental wall motion abnormalities. -Chest x-ray with mild vascular changes. -ON IV lasix. -Net positive fluid balance, however weight improved and patient reports improvement in symptoms. -Strict i/os, daily weighs, fluid restriction. -Suspect LE edema, abdominal ascites largely related to liver cirrhosis, s/p Whipple. Do no suspect symptoms are primarily cardiac in etiology. -SCr continues to worsen, PLT decreased. Discussed with Dr. Malone. No further inpatient recommendations from Cardiology , will sign-off. Qualifiers: Heart failure type: diastolic Heart failure chronicity: unspecified Qualified Code(s): I50.30 - Unspecified diastolic (congestive) heart failure Discussion w patient/family: The assessment and plan as outlined above was discussed with the patient and/or family members who expressed understanding and agreement. All questions were answered. Thank you for involving us in the care of your patient. Please call with any questions. Subjective Principal diagnosis: LISA, Hyperkalemia, Hyponatremia, edema, etc Interval history: Seen and examined. CT scan abd/pelvis this AM. Denies shortness of breath. Still with significant LE edema, abdominal ascites Objective General: Conversant HEENT: Atraumatic, Normocephaly Cardiac: Reg Rate and Rhythm, Normal S1 and S2 Lungs: Normal Breath Sounds Neuro: Alert and responsive Abdomen: Other (large, distended) Skin: No rashes noted on visualized skin Musculoskeletal: No Chest Wall Tenderness Extremities: Other (significant LE edema, +2) Results 01/14/18 05:16 01/14/18 05:16 Lab Results 01/13/18 01/14/18 01/14/18 04:35 05:16 05:16 WBC 7.5 Hgb 7.3 L Hct 20.5 L Plt Count 94 L Sodium 132 L 136 Potassium 6.0 H 5.2 H Chloride 109 H 111 H Carbon Dioxide 20 L 22 L BUN 11 13 Creatinine 1.88 H 2.02 H Glucose 116 H 54 L Calcium 7.7 L 7.6 L Magnesium 1.5 L Active Medications Hydrocodone Bitart/Acetaminophen ([place] 10-325 Mg) 1 each PO BID PRN PRN Reason: Pain Stop: 07/13/18 20:33 Last Admin: 01/13/18 07:45 Dose: 1 each Lipase/Protease/Amylase (Creon Dr 6,000 Units Capsule) 4 each PO TIDWM [facility] Stop: 07/14/18 08:01 Last Admin: 01/14/18 07:52 Dose: 4 each Aspirin (Aspirin Ec) 81 mg PO DAILY [facility] Stop: 07/14/18 09:01 Last Admin: 01/14/18 07:52 Dose: 81 mg Atorvastatin Calcium (Lipitor) 40 mg PO HS [facility] Stop: 07/13/18 21:01 Last Admin: 01/13/18 19:55 Dose: 40 mg Dextrose/Water (Dextrose 50% (Syg)) 25 ml IVP AD PRN PRN Reason: Hypoglycemia Stop: 07/13/18 20:28 Diphenhydramine HCl (Benadryl) 25 mg IVP Q6HR PRN PRN Reason: Itching Stop: 07/14/18 21:28 Ergocalciferol (Drisdol (50,000 Unit)) 50,000 unit PO QWEEK [facility] Stop: 03/30/18 22:16 Last Admin: 01/13/18 00:15 Dose: 50,000 unit Furosemide (Lasix) 40 mg IVP DAILY [facility] Stop: 07/14/18 09:01 Last Admin: 01/14/18 07:52 Dose: 40 mg Glucagon (Glucagen) 1 mg IM ONCE PRN PRN Reason: Hypoglycemia Stop: 07/13/18 20:28 Glucose (Gluctose) 15 gm PO ONCE PRN PRN Reason: Hypoglycemia Stop: 07/13/18 20:28 Glucose (Gluctose) 30 gm PO ONCE PRN PRN Reason: Hypoglycemia Stop: 07/13/18 20:28 Dextrose (Dextrose 5%) 1,000 mls @ 100 mls/hr IVC .Q10H PRN PRN Reason: HYPOGLYCEMIA Stop: 07/13/18 20:28 Insulin Detemir (Levemir) 13 unit SQ HS [facility] Stop: 07/16/18 21:01 Insulin Human Lispro (Humalog) 0 units SQ HS [facility] PRN Reason: Protocol Stop: 07/13/18 21:01 Last Admin: 01/13/18 20:15 Dose: Not Given Insulin Human Lispro (Humalog) 0 units SQ TIDAC [facility] PRN Reason: Protocol Stop: 07/14/18 07:31 Last Admin: 01/14/18 07:53 Dose: Not Given Levothyroxine Sodium (Synthroid) 175 mcg PO 0630 [facility] Stop: 07/14/18 06:31 Last Admin: 01/14/18 06:09 Dose: 175 mcg Nadolol (Corgard) 20 mg PO DAILY [facility] Stop: 07/14/18 09:01 Last Admin: 01/14/18 07:52 Dose: 20 mg Naloxone HCl (Narcan) 0.4 mg IVP Q2MIN PRN PRN Reason: SEE COMMENTS Stop: 07/13/18 20:23 Nicotine (Nicoderm) 14 mg TD DAILY [facility] PRN Reason: Protocol Stop: 07/15/18 09:01 Last Admin: 01/14/18 07:52 Dose: 14 mg Omeprazole (Prilosec) 40 mg PO DAILY@0730 [facility] PRN Reason: Protocol Stop: 07/14/18 07:31 Last Admin: 01/14/18 07:52 Dose: 40 mg Prochlorperazine Maleate (Compazine) 10 mg PO Q6HR PRN PRN Reason: Nausea Stop: 07/13/18 20:33 Last Admin: 01/13/18 18:27 Dose: 10 mg Rifaximin (Xifaxan) 400 mg PO BID [facility] Stop: 07/13/18 21:01 Last Admin: 01/14/18 07:52 Dose: 400 mg Ropinirole HCl (Requip) 3 mg PO HS [facility] Stop: 07/13/18 21:01 Last Admin: 01/13/18 19:56 Dose: 3 mg Senna/Docusate Sodium (Senna Plus) 2 each PO HS PRN; Protocol PRN Reason: Constipation Stop: 07/13/18 20:56 - EKG Interpretation EKG results cardiology: personally reviewed Consult Discharge Plan - Plan Referrals: Niurka Arana, [employer] [Primary Care Provider] -
--- NOTE | 2018-01-14 11:48 | Nephrology Progress Note ---
Date of Encounter: 01/14/18 Time of Encounter: 10:20 - Assessment and Plan (1) Hyperkalemia Current Visit: Yes Status: Acute Trending better. LISA persists and will recommend adding Albumin with lasix in the setting of ascites and cirrhosis. Continue to avoid Spironolactone d/t the hyperkalemia. Rec repleting Mg Continue to follow a renal protective strategy: dose Rx by GFR, avoid nephrotoxins such Bactrim, Contrast and NSAIDs. Will follow with you. Thank you. (2) Hyponatremia Current Visit: Yes Status: Acute See above (3) Chronic kidney disease (CKD), stage III (moderate) Current Visit: Yes Status: Acute See above. Cannot rule out hepatorenal syndrome, which is a diagnosis of exclusion. But I'm starting to suspect it. May need midodrine and albumin Subjective Principal diagnosis: LISA, Hyperkalemia, Hyponatremia, edema, etc Interval history: Pt was s/e earlier today. He did not affirm CP or N/V and voiced having a good appetite. Objective - Vital Signs Vital signs: Vital Signs Temp Pulse Resp BP Pulse Ox 01/14/18 07:00 97.4 F L 47 17 139/75 97 01/14/18 06:17 97.6 F 01/14/18 04:00 97.4 F L 55 16 97/64 94 01/14/18 01:15 94.3 F L 01/14/18 00:30 50 16 92/57 94 01/13/18 18:30 95.8 F L 56 18 108/74 97 01/13/18 16:13 101/63 01/13/18 15:59 97.4 F L 52 82/55 Intake and Output 01/13/18 01/14/18 01/14/18 23:59 07:59 15:59 Intake Total 0 / 0 0 / 0 240 / 240 Output Total 200 / 200 Balance 0 / 0 0 / 0 40 / 40 Intake: Oral 0 / 0 0 / 0 240 / 240 Output: Urine 200 / 200 Other: Meal Breakfast Percent of Meal Consumed 100% Stool Size Large Stool Consistency soft Stool Color Brown # Voids 0 0 # Bowel Movements 1 Weight 89.6 kg Blood Glucose* 164 40 223 Patient Weight 01/14/18 23:59 Weight 89.6 kg - General Appearance Exam: General appearance: Present: well-developed, appears started age, obese, fatigue , frail EENT: Present: ATNC, PERRL, mucous membranes moist Neck: Present: supple Respiratory: Present: clear Cardiology: Present: edema, regular rate, regular rhythm, normal S1, normal S2, +MYNOR Gastrointestinal: Present: normoactive bowel sounds, no tenderness, no guarding Integumentary: Present: no rash, warm and dry Neurologic: Present: no focal deficit, alert and oriented x3 Musculoskeletal: Present: no deformities, no erythema, no cyanosis Psychiatric: Present: mood/affect appropriate, cooperative - Lab 01/17/18 03:33 01/17/18 03:33 Most recent lab results Calcium 7.6 mg/dL (8.6-10.3) L 01/14/18 05:16 Phosphorus 4.4 mg/dL (2.7-4.5) 01/14/18 05:16 Magnesium 1.5 mg/dL (1.6-2.6) L 01/14/18 05:16 Urine Creatinine 55 mg/dL 01/12/18 11:47 Urine Sodium 99.8 mEq/L 01/12/18 11:47 Urine Total Protein 4 mg/dL (1-14) 01/12/18 11:47 Consult Discharge Plan - Plan Referrals: Niurka Arana CNP [Primary Care Provider] -
--- NOTE | 2018-01-14 15:21 | Internal Med Progress Note ---
Date of Encounter: 01/14/18 Time of Encounter: 15:16 - Assessment and plan (1) Leg pain, bilateral Current Visit: Yes Status: Acute Assessment and plan: Likely from acute on chronic edema of extremities - Edema due to liver cirrhosis and malnutrition - DVT negative for thrombi - Surgery consulted, no further intervention needed - TSH within normal limits - Requip can be associated with edema but patient states he has been taking this for a while. - Albumin 1.7, prealbumin < 3.0 Plan: - Continue diuresis, Lasix 40 mg IV daily. - Nutrition consult, start Ensure supplementation, monitor for refeeding syndrome. (2) Bilateral lower extremity edema Current Visit: Yes Status: Acute (3) Hyperkalemia Current Visit: Yes Status: Acute Assessment and plan: -Lasix 40 mg IV daily -Spironolactone held -Continue telemetry monitoring - repeat EKG for monitoring -Nephrology following recommendations appreciated On Kayexalate (4) CHF (congestive heart failure) Current Visit: Yes Status: Acute Assessment and plan: Fluid restrict IV Lasix Monitor I/Os Cardiology following, recommendations appreciated. Qualifiers: Heart failure type: diastolic Heart failure chronicity: unspecified Qualified Code(s): I50.30 - Unspecified diastolic (congestive) heart failure (5) Cirrhosis Current Visit: Yes Status: Acute Assessment and plan: Patient has cirrhosis due to fatty liver. Continue rifaximin and medication for constipation. Qualifiers: Hepatic cirrhosis type: other cirrhosis Qualified Code(s): K74.69 - Other cirrhosis of liver (6) Uncontrolled diabetes mellitus Current Visit: Yes Status: Acute Assessment and plan: Glucose improved. Continue levemir dose of 15 units HS and sliding scale insulin Qualifiers: Diabetes mellitus type: type 1 Diabetes mellitus complication status: with kidney complications Diabetes mellitus complication detail: with chronic kidney disease Chronic kidney disease stage: stage 3 (moderate) Qualified Code(s): E10.22 - Type 1 diabetes mellitus with diabetic chronic kidney disease ; E10.65 - Type 1 diabetes mellitus with hyperglycemia; E10.65 - Type 1 diabetes mellitus with hyperglycemia; E10.65 - Type 1 diabetes mellitus with hyperglycemia; E10.65 - Type 1 diabetes mellitus with hyperglycemia; N18.3 - Chronic kidney disease, stage 3 (moderate); N18.3 - Chronic kidney disease, stage 3 (moderate) (7) Chronic kidney disease (CKD), stage III (moderate) Current Visit: Yes Status: Acute Assessment and plan: Nephrology following, recommendations appreciated - Medications renally dosed (8) Pancreas cancer Current Visit: No Status: Chronic Assessment and plan: S/P surgery 3 yrs ago. Continue Creon. Continue follow-up with oncology as outpatient Qualifiers: Pancreatic malignancy location: head of pancreas Qualified Code(s): C25.0 - Malignant neoplasm of head of pancreas (9) Anemia Current Visit: Yes Status: Acute Assessment and plan: Due to chronic kidney disease. He does have worsening hemoglobin today at 7.6. Continue to trend H&H, follow-up iron studies and check occult stool. Qualifiers: Anemia type: due to chronic kidney disease Chronic kidney disease stage: stage 3 (moderate) Qualified Code(s): N18.3 - Chronic kidney disease, stage 3 (moderate); D63.1 - Anemia in chronic kidney disease; D63.1 - Anemia in chronic kidney disease (10) DVT prophylaxis Current Visit: Yes Status: Acute Assessment and plan: EPCD. Not place patient on heparin because of thrombocytopenia - Subjective Interval history: Patient has history of cirrhosis, pancreatic cancer s/p Whipple surgery, DM, HTn , CAD s/p CABG. He presented to ED for bilateral leg pain, burning and cramping for 4 days. He denies any numbness/tingling. Complains of some mild weakness. He has no SOB, CP, n/v. He was found to have elevated glucose in 500s and also hyperkalemia at 6.5. He was given Lasix and bicarbonate in ED as well as 10 units IV insulin. He appears to be in mild CHF exacerbation as well and so he is being diuresed and 3/3: Still had some nausea, had chills and low temp and required bear hugger in AM. This afternoon doing well. States edema is improving and pain is only gradually improving. - Constitutional Vitals: Temp Pulse Resp BP Pulse Ox 97.4 F L 47 17 139/75 97 01/14/18 07:00 01/14/18 07:00 01/14/18 07:00 01/14/18 07:00 01/14/18 07:00 General appearance: Present: A&O X 3, no acute distress, answers questions appropriately - Head Head exam: Present: atraumatic, normocephalic - Eye Eye exam: Present: PERRL, conjuntiva pink, sclera anicteric Pupils: Present: PERRL - Neck Neck exam general surgery: Present: supple, trachea midline. Absent: lymphadenopathy - Respiratory Respiratory exam: Present: CTAB. Absent: accessory muscle use, rales, rhonchi, wheezes - Cardiovascular Cardiovascular exam: Present: RRR, +S1, +S2. Absent: diastolic murmur, gallop, rubs, systolic murmur - GI/Abdominal GI/Abdominal exam: Present: normal bowel sounds, soft, no peritoneal signs. Absent: bruit, firm, guarding, hernia, tenderness - Expanded GI/Abdominal Exam GI/Abdominal exam expanded: Present: ascites - Extremities Exam Extremities exam: Present: pedal edema, warm, radial pulses palpable and symmetrical. Absent: calf tenderness, cyanotic - Neurological Exam Neurological exam: Present: CN II-XII intact, oriented X3, no focal deficits. Absent: pronater drift, facial droop, speech deficit - Skin Skin exam: Present: dry, intact Internal Medicine: Result - Labs CBC & Chem 7: 01/14/18 05:16 01/14/18 05:16 Labs: Short CBC 01/14/18 Range/Units 05:16 WBC 7.5 (4.3-11.1) K/mcL Hgb 7.3 L (12.9-16.9) g/dL Hct 20.5 L (37.5-50.1) % Plt Count 94 L (140-400) K/mcL Neutrophils # 4.7 (1.6-8.9) K/mcL BMP 01/13/18 01/14/18 04:35 05:16 Sodium 132 L 136 Potassium 6.0 H 5.2 H Chloride 109 H 111 H Carbon Dioxide 20 L 22 L BUN 11 13 Creatinine 1.88 H 2.02 H Glucose 116 H 54 L Calcium 7.7 L 7.6 L - ABG Interpretation ABG results: PT/INR, D-dimer PT 20.5 Seconds (9.4-12.1) H 01/12/18 00:26 - Impressions Impressions Abdomen/Pelvis CT 01/14/18 08:34 IMPRESSION: 1. Similar cirrhotic changes of the liver and moderately large volume intra- abdominal ascites. 2. Status post Whipple's procedure, with similar borderline enlarged retroperitoneal lymphadenopathy, but no new lymphadenopathy or soft tissue masses suggests new or progressive metastatic disease. 3. Stable postsurgical seroma in the splenectomy bed. 4. Small bilateral pleural effusions and left-sided pleural thickening and pleuroparenchymal calcification. 5. Bilateral nonobstructing renal calculi including a larger staghorn calculi in the upper pole of the right kidney lower pole of the left kidney. D/ / Barak Nugent / Barak Nugent Interpreting Provider: Barak Nugent Consult Discharge Plan - Plan Referrals: Niurka Arana CNP [Primary Care Provider] -
[2018-01-14] MEDS ORDERED: Ondansetron 4 MG/2 ML VIAL IVP ONE (15:29)
[2018-01-14] MEDS ORDERED: Ondansetron 4 MG/2 ML VIAL IVP PRN (15:38)
[2018-01-14] MEDS: Albumin 25% 25gram/100mL 25 GM/100 ML IV.SOLN IVPB SCH (17:11)
--- NOTE | 2018-01-14 17:27 | Event Note ---
Date of Encounter: 01/14/18 Time of Encounter: 17:22 Patient is lethargic and hypotensive. He also hypothermic. Neurological exam is non-focal, glucose at bedside is in 200s. - Will hold diuresis for right now - Emperically treat for sepsis until proven otherwise - Blood cultures prior to antibiotics - CBC, CMP, ABG, lactic acid, ammonia, INR
[2018-01-14 18:01] LABS: Red Cell Distribution Width 18.6 % (11.5-14.5)
[2018-01-14 18:02] LABS: Basophils % 0.3 %; Eosinophils # 0.2 K/mcL (0.0-0.6); Eosinophils % 1.9 %; Hematocrit 22.5 % (37.5-50.1); Hemoglobin 7.7 g/dL (12.9-16.9); Immature Granulocytes % 0.3 % (0-4); Immature Platelets 12.3 % (1.1-6.1); Lymphocytes # 1.3 K/mcL (0.6-4.6); Lymphocytes % 14.8 %; Mean Corpuscular HGB Conc 34.2 g/dL (31.6-35.5); Mean Corpuscular Hemoglobin 28.7 pg (28.0-33.3); Monocytes # 1.1 K/mcL (0.0-1.3); Monocytes % 12.8 %; Neutrophils # 6.2 K/mcL (1.6-8.9); Platelet Count 102 K/mcL (140-400); Red Blood Count 2.68 M/mcL (4.19-5.50); Segmented Neutrophils % 69.9 %
[2018-01-14] MEDS ORDERED: Meropenem 1,000 MG in Water for inj. (sterile) 20 ML 10 ML IVP STA (18:02)
[2018-01-14 18:06] LABS: ABG Base Excess -2 mEq/L (-2 to 3); ABG HCO3 23 mEq/L (21-27); ABG Oxygen Saturation 99 % (95-98); ABG PCO2 38 mmHg (35-45); ABG PH 7.39 pH Units (7.32-7.45); ABG PO2 132 mmHg (85-104); ABG TCO2 24 mEq/L (20-26)
[2018-01-14 18:07] LABS: INR 1.7; Prothrombin Time 18.6 Seconds (9.4-12.1)
[2018-01-14] MEDS ORDERED: 0.9 % Sodium Chloride 1,000 ML IVC ONE (18:14)
[2018-01-14 18:24] LABS: Albumin 1.7 g/dL (3.5-5.7); Albumin/Globulin Ratio 0.4 (1.1-2.2); Bilirubin,Total 0.9 mg/dL (0.3-1.0); Calcium 7.9 mg/dL (8.6-10.3); Globulin 4.1 g/dL (2.4-3.5); Potassium 5.2 mEq/L (3.5-5.1); Total Protein 5.8 g/dL (6.4-8.9)
[2018-01-14 18:30] LABS: Anisocytosis 1+ (Not Present); Platelet Estimate Normal (Normal); Poikilocytosis 1+ (Not Present)
[2018-01-14 20:12] LABS: Alpha 2 Globulin (PEP) 0.44 g/dL (0.48-1.05); Beta Globulin (PEP) 1.22 g/dL (0.48-1.10)
[2018-01-14] MEDS: Insulin DETEMIR 100 UNIT/ML X5UNITS SQ SCH (20:19)
[2018-01-14] MEDS ORDERED: Acetaminophen 325 MG TABLET PO ONE (23:54)
[2018-01-15] MEDS ORDERED: Lactulose Oral Soln 20 GM/30 ML UDC PO ONE (00:45)
[2018-01-15] MEDS: Albumin 25% 25gram/100mL 25 GM/100 ML IV.SOLN IVPB SCH ×2 (05:32→16:39)
[2018-01-15] MEDS: Aspirin Enteric Coated 81 MG Tablet PO SCH (07:40)
[2018-01-15] MEDS: Nicotine 14 MG PATCH.TD24 TD SCH (07:40)
[2018-01-15] MEDS: Meropenem 1,000 MG in Water for inj. (sterile) 10 ML IVP SCH ×2 (07:40)
[2018-01-15] MEDS: Insulin LISPRO 300 UNITS/3 ML VIAL SQ SCH ×4 (07:41→20:56)
[2018-01-15 07:46] LABS: Basophils % 0.4 %
[2018-01-15 07:48] LABS: Eosinophils # 0.2 K/mcL (0.0-0.6); Eosinophils % 2.6 %; Hemoglobin 6.9 g/dL (12.9-16.9); Immature Granulocytes % 0.4 % (0-4); Immature Platelets 12.6 % (1.1-6.1); Lymphocytes # 2.1 K/mcL (0.6-4.6); Lymphocytes % 26.5 %; Mean Corpuscular HGB Conc 34.5 g/dL (31.6-35.5); Mean Corpuscular Hemoglobin 28.8 pg (28.0-33.3); Mean Corpuscular Volume 83.3 fL (83.0-100.0); Monocytes # 1.3 K/mcL (0.0-1.3); Monocytes % 16.3 %; Neutrophils # 4.3 K/mcL (1.6-8.9); Nucleated Red Blood Cells 0.5 /100 WBC (0); Platelet Count 92 K/mcL (140-400); Red Cell Distribution Width 18.2 % (11.5-14.5); Segmented Neutrophils % 53.8 %
[2018-01-15 07:51] LABS: INR 1.8; Prothrombin Time 19.6 Seconds (9.4-12.1)
[2018-01-15 08:04] LABS: Platelet Estimate Decreased (Normal)
[2018-01-15 08:05] LABS: Calcium 7.8 mg/dL (8.6-10.3); Potassium 5.3 mEq/L (3.5-5.1)
--- NOTE | 2018-01-15 08:05 | Internal Med Progress Note ---
Date of Encounter: 01/15/18 Time of Encounter: 14:42 - Assessment and plan (1) Leg pain, bilateral Current Visit: Yes Status: Acute Assessment and plan: - Pain from acute edema due to liver cirrhosis and malnutrition - DVT negative for thrombi - Surgery consulted, no further intervention needed - TSH within normal limits - Requip can be associated with edema but patient states he has been taking this for a while. - Albumin 1.7, prealbumin < 3.0 Plan: - Continue diuresis, Nephrology following, recommendations appreciated. - Nutrition consult, start Ensure supplementation, monitor for refeeding syndrome. He refuses Ensure at home, he is willing to start taking now. (2) Bilateral lower extremity edema Current Visit: Yes Status: Acute (3) Hyperkalemia Current Visit: Yes Status: Acute Assessment and plan: -Lasix 40 mg IV daily -Spironolactone held -Continue telemetry monitoring -Nephrology following recommendations appreciated (4) CHF (congestive heart failure) Current Visit: Yes Status: Acute Assessment and plan: Fluid restrict IV Lasix Monitor I/Os Cardiology was consulted, agreed with current management Qualifiers: Heart failure type: diastolic Heart failure chronicity: unspecified Qualified Code(s): I50.30 - Unspecified diastolic (congestive) heart failure (5) Cirrhosis Current Visit: Yes Status: Acute Assessment and plan: Patient has cirrhosis due to fatty liver. Continue rifaximin and medication for constipation. Qualifiers: Hepatic cirrhosis type: other cirrhosis Qualified Code(s): K74.69 - Other cirrhosis of liver (6) Uncontrolled diabetes mellitus Current Visit: Yes Status: Acute Assessment and plan: Glucose improved. Continue levemir dose of 15 units HS and sliding scale insulin Qualifiers: Diabetes mellitus type: type 1 Diabetes mellitus complication status: with kidney complications Diabetes mellitus complication detail: with chronic kidney disease Chronic kidney disease stage: stage 3 (moderate) Qualified Code(s): E10.22 - Type 1 diabetes mellitus with diabetic chronic kidney disease ; E10.65 - Type 1 diabetes mellitus with hyperglycemia; E10.65 - Type 1 diabetes mellitus with hyperglycemia; E10.65 - Type 1 diabetes mellitus with hyperglycemia; E10.65 - Type 1 diabetes mellitus with hyperglycemia; N18.3 - Chronic kidney disease, stage 3 (moderate); N18.3 - Chronic kidney disease, stage 3 (moderate) (7) Chronic kidney disease (CKD), stage III (moderate) Current Visit: Yes Status: Acute Assessment and plan: Nephrology following, recommendations appreciated - Medications renally dosed (8) Pancreas cancer Current Visit: No Status: Chronic Assessment and plan: S/P surgery 3 yrs ago. Continue Creon. Continue follow-up with oncology as outpatient Qualifiers: Pancreatic malignancy location: head of pancreas Qualified Code(s): C25.0 - Malignant neoplasm of head of pancreas (9) Anemia Current Visit: Yes Status: Acute Assessment and plan: Due to chronic kidney disease. Continue to trend H&H, follow-up iron studies and check occult stool. Transfuse 1 unit PRBC today Qualifiers: Anemia type: due to chronic kidney disease Chronic kidney disease stage: stage 3 (moderate) Qualified Code(s): N18.3 - Chronic kidney disease, stage 3 (moderate); D63.1 - Anemia in chronic kidney disease; D63.1 - Anemia in chronic kidney disease (10) DVT prophylaxis Current Visit: Yes Status: Acute Assessment and plan: EPCD. Not place patient on heparin because of thrombocytopenia - Subjective Interval history: Patient has history of cirrhosis, pancreatic cancer s/p Whipple surgery, DM, HTn , CAD s/p CABG. He presented to ED for bilateral leg pain, burning and cramping for 4 days. He denies any numbness/tingling. Complains of some mild weakness. He has no SOB, CP, n/v. He was found to have elevated glucose in 500s and also hyperkalemia at 6.5. He was given Lasix and bicarbonate in ED as well as 10 units IV insulin. He appears to be in mild CHF exacerbation as well and so he is being diuresed and 3/3: Still had some nausea, had chills and low temp and required bear hugger in AM. This afternoon doing well. States edema is improving and pain is only gradually improving. became lethargic, hypotensive with persisting hypothermia. Stat labs at that time showed elevated ammonia again, patient aroused on his own. 3/4: has not had any acute episodes, is eating breakfast and lunch without issue. - Constitutional Vitals: Temp Pulse Resp BP Pulse Ox 98 F 60 16 108/58 94 01/15/18 06:57 01/15/18 06:57 01/15/18 06:57 01/15/18 06:57 01/15/18 06:57 General appearance: Present: A&O X 3, no acute distress, answers questions appropriately Exam: CVS: RRR Lungs: Course breath sounds, no rales, no wheezing Abd: ascities, no abdominal pain, +bs, non-distended Ext: 2+ bipedal edema. Improved. Internal Medicine: Result - Labs CBC & Chem 7: 01/15/18 07:26 01/15/18 07:26 Labs: Short CBC 01/14/18 01/15/18 Range/Units 17:47 07:26 WBC 8.9 8.0 (4.3-11.1) K/mcL Hgb 7.7 L 6.9 L (12.9-16.9) g/dL Hct 22.5 L 20.0 L (37.5-50.1) % Plt Count 102 L 92 L (140-400) K/mcL Neutrophils # 6.2 4.3 (1.6-8.9) K/mcL BMP 01/13/18 01/14/18 04:35 17:47 Sodium 132 L 133 L Potassium 6.0 H 5.2 H Chloride 109 H 108 H Carbon Dioxide 20 L 21 L BUN 11 14 Creatinine 1.88 H 1.94 H Glucose 116 H 164 H Calcium 7.7 L 7.9 L Liver Function 01/14/18 Range/Units 17:47 Total Bilirubin 0.9 (0.3-1.0) mg/dL AST 29 (13-39) Units/L ALT 16 (7-52) Units/L Alkaline Phosphatase 128 H (34-104) Units/L Albumin 1.7 L (3.5-5.7) g/dL - ABG Interpretation ABG results: ABG ABG pH 7.39 pH Units (7.32-7.45) 01/14/18 18:01 ABG pCO2 38 mmHg (35-45) 01/14/18 18:01 ABG pO2 132 mmHg (85-104) H 01/14/18 18:01 ABG O2 Saturation 99 % (95-98) H 01/14/18 18:01 PT/INR, D-dimer PT 19.6 Seconds (9.4-12.1) H 01/15/18 07:26 - Impressions Impressions Abdomen/Pelvis CT 01/14/18 08:34 IMPRESSION: 1. Similar cirrhotic changes of the liver and moderately large volume intra- abdominal ascites. 2. Status post Whipple's procedure, with similar borderline enlarged retroperitoneal lymphadenopathy, but no new lymphadenopathy or soft tissue masses suggests new or progressive metastatic disease. 3. Stable postsurgical seroma in the splenectomy bed. 4. Small bilateral pleural effusions and left-sided pleural thickening and pleuroparenchymal calcification. 5. Bilateral nonobstructing renal calculi including a larger staghorn calculi in the upper pole of the right kidney lower pole of the left kidney. D/ / Barak Nugent / Barak Nugent Interpreting Provider: Barka Nugent Chest X-Ray 01/15/18 17:28 IMPRESSION: Mildly prominent interstitial markings and small right effusion may represent pulmonary edema. D/ / Angel Hedrick MD / Angel Hedrick MD Interpreting Provider: Angel Hedrick MD Consult Discharge Plan - Plan Referrals: Niurka Arana, ELKIN [Primary Care Provider] -
--- NOTE | 2018-01-15 10:24 | Nephrology Progress Note ---
Date of Encounter: 01/15/18 Time of Encounter: 09:20 - Assessment and Plan (1) Hyperkalemia Current Visit: Yes Status: Acute Lasix was stopped d/t worsening renal function. With his cirrhosis of the liver, I will inc the Albumin 25gm to BID for the next 24-48 hr, plus add Midodrine. Cont to follow a low K+ diet. No need for MUNICIPAL CLERK today, but his renal status remains tenuous. Hypervolemic hyponatremia: continue diuretics, so as to help improve his volume status and therefore help correct the hyponatremia. Since he has a hx of cirrhosis, I would not add Tolvaptan at this time. Continue to follow a renal protective strategy: dose Rx by GFR, avoid nephrotoxins such Bactrim, Contrast and NSAIDs. Will follow with you. Thank you. (2) Hyponatremia Current Visit: Yes Status: Acute See above (3) Chronic kidney disease (CKD), stage III (moderate) Current Visit: Yes Status: Chronic See above. Suspecting HRS. See above. Subjective Principal diagnosis: LISA, Hyperkalemia, Hyponatremia, edema, etc Interval history: Pt was s/e earlier today. He voiced having occ nausea but no vomitting or abd pain other than his chronic ascites. He did not affirm severe ShOB. Objective - Vital Signs Vital signs: Vital Signs Temp Pulse Resp BP Pulse Ox 01/15/18 06:57 98 F 60 16 108/58 94 01/15/18 03:16 98.1 F 68 16 100/70 91 01/14/18 23:36 98.3 F 76 18 96/58 91 01/14/18 20:50 98 01/14/18 19:22 95.3 F L 59 18 92/53 98 01/14/18 18:51 54 15 98/51 94 01/14/18 15:00 94.0 F L 46 14 89/61 98 Intake and Output 01/14/18 01/15/18 01/15/18 23:59 07:59 15:59 Intake Total 1316 / 1316 420 / 420 Output Total 0 / 0 0 / 0 Balance 1316 / 1316 420 / 420 Intake: IV Fluids 100 / 100 120 / 120 Merrem 1,000 MG In Water for 20 / 20 inj. (sterile) 10 ML @ 200 mls/ hr IVP Q8HR [facility] Rx#:[id number] Flexbumin 25 gm In 100 ml @ 60 100 / 100 100 / 100 mls/hr IVPB Q12HR [facility]ATHI Rx#: [id number] Oral 1216 / 1216 300 / 300 Output: Urine 0 / 0 0 / 0 Other: Meal Dinner Percent of Meal Consumed 100% Weight 90.3 kg Blood Glucose* 195 223 Patient Weight 01/15/18 23:59 Weight 90.3 kg - General Appearance Exam: General appearance: Present: well-developed, appears started age, obese, fatigue , frail EENT: Present: ATNC, PERRL, mucous membranes moist Neck: Present: supple Respiratory: Present: clear Cardiology: Present: edema, regular rate, regular rhythm, normal S1, normal S2, +MYNOR Gastrointestinal: Present: normoactive bowel sounds, no tenderness, no guarding Integumentary: Present: no rash, warm and dry Neurologic: Present: no focal deficit, alert and oriented x3 Musculoskeletal: Present: no deformities, no erythema, no cyanosis Psychiatric: Present: mood/affect appropriate, cooperative - Lab 01/17/18 03:33 01/17/18 03:33 Most recent lab results ABG pH 7.39 pH Units (7.32-7.45) 01/14/18 18:01 ABG pCO2 38 mmHg (35-45) 01/14/18 18:01 ABG pO2 132 mmHg (85-104) H 01/14/18 18:01 ABG HCO3 23 mEq/L (21-27) 01/14/18 18:01 ABG O2 Saturation 99 % (95-98) H 01/14/18 18:01 Calcium 7.8 mg/dL (8.6-10.3) L 01/15/18 07:26 Phosphorus 4.4 mg/dL (2.7-4.5) 01/14/18 05:16 Magnesium 1.5 mg/dL (1.6-2.6) L 01/14/18 05:16 Urine Creatinine 55 mg/dL 01/12/18 11:47 Urine Sodium 99.8 mEq/L 01/12/18 11:47 Urine Total Protein 4 mg/dL (1-14) 01/12/18 11:47 - VTE Documentation of Mechanical Device: Venous foot pump, device Consult Discharge Plan - Plan Referrals: Niurka Arana, ELKIN [Primary Care Provider] -
[2018-01-15] MEDS ORDERED: 0.9 % Sodium Chloride 250 ML ONE (14:25)
[2018-01-15] MEDS: Meropenem 1,000 MG in Water for inj. (sterile) 20 ML 10 ML IVP SCH (20:55)
[2018-01-15] MEDS: *HR* HYDROcodone/Acet 10/325 mg TABLET PO PRN (20:56)
[2018-01-15] MEDS: Insulin DETEMIR 100 UNIT/ML X5UNITS SQ SCH (20:57)
[2018-01-15] MEDS: Lactulose Oral Soln 20 GM/30 ML UDC PO SCH (23:18)
[2018-01-16 01:32] LABS: Urine Collection Duration RANDOM hr; Urine Collection Volume RANDOM mL
[2018-01-16 05:51] LABS: Hemoglobin 7.3 g/dL (12.9-16.9); Immature Granulocytes % 0.4 % (0-4)
[2018-01-16 05:53] LABS: Basophils % 0.5 %; Calcium 7.9 mg/dL (8.6-10.3); Eosinophils # 0.3 K/mcL (0.0-0.6); Eosinophils % 3.1 %; Hematocrit 20.9 % (37.5-50.1); Immature Platelets 15.5 % (1.1-6.1); Lymphocytes # 1.9 K/mcL (0.6-4.6); Lymphocytes % 23.8 %; Mean Corpuscular HGB Conc 34.9 g/dL (31.6-35.5); Mean Corpuscular Volume 82.9 fL (83.0-100.0); Monocytes # 1.4 K/mcL (0.0-1.3); Monocytes % 17.8 %; Neutrophils # 4.4 K/mcL (1.6-8.9); Nucleated Red Blood Cells 0.2 /100 WBC (0); Potassium 4.8 mEq/L (3.5-5.1); Red Blood Count 2.52 M/mcL (4.19-5.50); Red Cell Distribution Width 18.4 % (11.5-14.5); Segmented Neutrophils % 54.4 %
[2018-01-16 05:55] LABS: Platelet Count 87 K/mcL (140-400)
[2018-01-16] MEDS: Albumin 25% 25gram/100mL 25 GM/100 ML IV.SOLN IVPB SCH ×2 (06:04→17:08)
[2018-01-16 07:51] LABS: Anisocytosis 1+ (Not Present); Macrocytosis Present (Not Present); Microcytosis Present (Not Present); Platelet Estimate Decreased (Normal); Poikilocytosis 2+ (Not Present); Schistocytes 1+ (Not Present); Target Cells 2+ (Not Present)
[2018-01-16 07:54] LABS: Burr Cells 1+ (Not Present); Hypochromasia Present (Not Present)
[2018-01-16 08:16] LABS: Complement Component 3 53 mg/dL (88-201); Complement Component 4 13 mg/dL (10-40)
[2018-01-16 08:42] LABS: IFE Reflexed NOT DONE
[2018-01-16 08:46] LABS: ANA IgG by ELISA NONE DETECTED (None Detected)
[2018-01-16] MEDS: Aspirin Enteric Coated 81 MG Tablet PO SCH (08:55)
[2018-01-16] MEDS: Nicotine 14 MG PATCH.TD24 TD SCH (08:55)
[2018-01-16] MEDS: Insulin LISPRO 300 UNITS/3 ML VIAL SQ SCH ×4 (08:56→20:39)
[2018-01-16] MEDS: Lactulose Oral Soln 20 GM/30 ML UDC PO SCH ×2 (08:56→20:39)
[2018-01-16] MEDS: Meropenem 1,000 MG in Water for inj. (sterile) 20 ML 10 ML IVP SCH (08:57)
--- NOTE | 2018-01-16 09:47 | Nephrology Progress Note ---
Date of Encounter: 01/16/18 Time of Encounter: 09:05 - Assessment and Plan (1) Hyperkalemia Current Visit: Yes Status: Acute Stable today: cont Midodrine and Albumin Peripheral edema: will restart lasix today d/t his edema but at a lower dose. Ascites with peripheral edema: resume diuretics Hypervolemic hyponatremia: continue diuretics, so as to help improve his volume status and therefore help correct the hyponatremia. Since he has a hx of cirrhosis, I would not add Tolvaptan at this time. Continue to follow a renal protective strategy: dose Rx by GFR, avoid nephrotoxins such Bactrim, Contrast and NSAIDs. Will follow with you. Thank you. (2) Hyponatremia Current Visit: Yes Status: Acute See above (3) Chronic kidney disease (CKD), stage III (moderate) Current Visit: Yes Status: Chronic See above. Suspecting HRS and so have provided Albumin and Midodrine and had held diuretics for a few days with improvement of SCr noted, so now slowly reintroducing diuretics. Subjective Principal diagnosis: LISA, Hyperkalemia, Hyponatremia, edema, etc Interval history: Pt was s/e earlier today. He did not affirm CP or N/V today and said that his UOP has not been as good as normal, but he felt well, he said now that his BPs have not been quite so low. Objective - Vital Signs Vital signs: Vital Signs Temp Pulse Resp BP Pulse Ox 01/16/18 07:09 97.7 F 69 16 106/62 93 01/16/18 04:50 64 17 113/68 97 01/16/18 00:06 98.0 F 65 17 107/62 96 01/15/18 19:55 97.7 F 61 16 140/82 98 01/15/18 14:48 96.3 F L 66 16 122/72 01/15/18 14:41 96.3 F L 65 16 128/78 01/15/18 11:22 97.7 F 75 15 96/60 94 Intake and Output 01/15/18 01/16/18 01/16/18 23:59 07:59 15:59 Intake Total 460 / 460 240 / 240 Output Total 680 / 680 225 / 225 Balance -220 / -220 -225 / -225 240 / 240 Intake: IV Fluids 110 / 110 Merrem 1,000 MG In Water for 10 / 10 inj. (sterile) 10 ML @ 200 mls/ hr IVP Q12H [facility] Rx#:[id number] Flexbumin 25 gm In 100 ml @ 60 100 / 100 mls/hr IVPB Q12HR [facility] Rx#: [id number] Oral 240 / 240 Blood Product 350 / 350 Rbcs Leuko Poor As-1 Unit 350 / 350 [id number] Output: Urine 680 / 680 225 / 225 Other: Meal Breakfast Percent of Meal Consumed 100% # Voids 2 Weight 91 kg Blood Glucose* 343 263 Patient Weight 01/16/18 23:59 Weight 91 kg - General Appearance Exam: General appearance: Present: well-developed, appears started age, obese, fatigue , frail EENT: Present: ATNC, PERRL, mucous membranes moist Neck: Present: supple Respiratory: Present: clear Cardiology: Present: edema, regular rate, regular rhythm, normal S1, normal S2, +MYNOR Gastrointestinal: Present: normoactive bowel sounds, no tenderness, no guarding Integumentary: Present: no rash, warm and dry Neurologic: Present: no focal deficit, alert and oriented x3 Musculoskeletal: Present: no deformities, no erythema, no cyanosis Psychiatric: Present: mood/affect appropriate, cooperative - Lab 01/17/18 03:33 01/17/18 03:33 Most recent lab results ABG pH 7.39 pH Units (7.32-7.45) 01/14/18 18:01 ABG pCO2 38 mmHg (35-45) 01/14/18 18:01 ABG pO2 132 mmHg (85-104) H 01/14/18 18:01 ABG HCO3 23 mEq/L (21-27) 01/14/18 18:01 ABG O2 Saturation 99 % (95-98) H 01/14/18 18:01 Calcium 7.9 mg/dL (8.6-10.3) L 01/16/18 04:51 Phosphorus 4.4 mg/dL (2.7-4.5) 01/14/18 05:16 Magnesium 1.5 mg/dL (1.6-2.6) L 01/14/18 05:16 Urine Creatinine 55 mg/dL 01/12/18 11:47 Urine Sodium 99.8 mEq/L 01/12/18 11:47 Urine Total Protein 4 mg/dL (1-14) 01/12/18 11:47 - VTE Documentation of Mechanical Device: Venous foot pump, device Consult Discharge Plan - Plan Referrals: Niurka Arana CNP [Primary Care Provider] -
--- NOTE | 2018-01-16 10:41 | Internal Med Progress Note ---
Date of Encounter: 01/16/18 Time of Encounter: 10:40 - Assessment and plan (1) Bilateral lower extremity edema Current Visit: Yes Status: Acute Assessment and plan: Disposition: - Follow-up hemoglobin transfused 1 unit 3/4 - Blood pressure - midodrine added 3/4 - Possible paracentesis if BP would permit - Acute on chronic kidney injury status (2) Leg pain, bilateral Current Visit: Yes Status: Acute Assessment and plan: - From Edema due to liver cirrhosis and malnutrition - DVT negative for thrombi - Surgery consulted, no further intervention needed - TSH within normal limits - Requip can be associated with edema but patient states he has been taking this for a while. - Albumin 1.7, prealbumin < 3.0 Plan: - Continue diuresis, Nephrology following, recommendations appreciated. - Nutrition consult, start Ensure supplementation, monitor for refeeding syndrome. He refuses Ensure at home, he is willing to start taking now. (3) Hyperkalemia Current Visit: Yes Status: Acute Assessment and plan: -Lasix 20 mg IV BID -Spironolactone held -Continue telemetry monitoring -Nephrology following recommendations appreciated will add renal diet per recs (4) CHF (congestive heart failure) Current Visit: Yes Status: Acute Assessment and plan: Fluid restrict IV Lasix Monitor I/Os Cardiology was consulted, agreed with current management Qualifiers: Heart failure type: diastolic Heart failure chronicity: unspecified Qualified Code(s): I50.30 - Unspecified diastolic (congestive) heart failure (5) Cirrhosis Current Visit: Yes Status: Acute Assessment and plan: Patient has cirrhosis due to fatty liver. Continue rifaximin and medication for constipation. Qualifiers: Hepatic cirrhosis type: other cirrhosis Qualified Code(s): K74.69 - Other cirrhosis of liver (6) Uncontrolled diabetes mellitus Current Visit: Yes Status: Acute Assessment and plan: Glucose improved. Continue levemir dose of 15 units HS and sliding scale insulin Qualifiers: Diabetes mellitus type: type 1 Diabetes mellitus complication status: with kidney complications Diabetes mellitus complication detail: with chronic kidney disease Chronic kidney disease stage: stage 3 (moderate) Qualified Code(s): E10.22 - Type 1 diabetes mellitus with diabetic chronic kidney disease ; E10.65 - Type 1 diabetes mellitus with hyperglycemia; E10.65 - Type 1 diabetes mellitus with hyperglycemia; E10.65 - Type 1 diabetes mellitus with hyperglycemia; E10.65 - Type 1 diabetes mellitus with hyperglycemia; N18.3 - Chronic kidney disease, stage 3 (moderate); N18.3 - Chronic kidney disease, stage 3 (moderate) (7) Chronic kidney disease (CKD), stage III (moderate) Current Visit: Yes Status: Acute Assessment and plan: Nephrology following, recommendations appreciated - Medications renally dosed (8) Pancreas cancer Current Visit: No Status: Chronic Assessment and plan: S/P surgery 3 yrs ago. Continue Creon. Continue follow-up with oncology as outpatient Qualifiers: Pancreatic malignancy location: head of pancreas Qualified Code(s): C25.0 - Malignant neoplasm of head of pancreas (9) Anemia Current Visit: Yes Status: Acute Assessment and plan: Due to chronic kidney disease. Continue to trend H&H, follow-up iron studies and check occult stool. Transfuse 1 unit PRBC 3/4 Hemoglobin 7.3 after transfusing one unit (was 6.9) Qualifiers: Anemia type: due to chronic kidney disease Chronic kidney disease stage: stage 3 (moderate) Qualified Code(s): N18.3 - Chronic kidney disease, stage 3 (moderate); D63.1 - Anemia in chronic kidney disease; D63.1 - Anemia in chronic kidney disease (10) DVT prophylaxis Current Visit: Yes Status: Acute Assessment and plan: EPCD. Not place patient on heparin because of thrombocytopenia - Subjective Interval history: Patient has history of cirrhosis, pancreatic cancer s/p Whipple surgery, DM, HTn , CAD s/p CABG. He presented to ED for bilateral leg pain, burning and cramping for 4 days. He denies any numbness/tingling. Complains of some mild weakness. He has no SOB, CP, n/v. He was found to have elevated glucose in 500s and also hyperkalemia at 6.5. He was given Lasix and bicarbonate in ED as well as 10 units IV insulin. He appears to be in mild CHF exacerbation as well and so he is being diuresed and 3/3: Still had some nausea, had chills and low temp and required bear hugger in AM. This afternoon doing well. States edema is improving and pain is only gradually improving. became lethargic, hypotensive with persisting hypothermia. Stat labs at that time showed elevated ammonia again, patient aroused on his own. 3/4: has not had any acute episodes, is eating breakfast and lunch without issue. 3/5 no acute issues - Constitutional Vitals: Temp Pulse Resp BP Pulse Ox 97.7 F 69 16 106/62 93 01/16/18 07:09 01/16/18 07:09 01/16/18 07:09 01/16/18 07:09 01/16/18 07:09 General appearance: Present: A&O X 3, no acute distress, answers questions appropriately Exam: CVS: RRR Lungs: Course breath sounds, no rales, no wheezing Abd: ascities, no abdominal pain, +bs, non-distended Ext: 2+ bipedal edema. Improved. Internal Medicine: Result - Labs CBC & Chem 7: 01/16/18 04:51 01/16/18 04:51 Labs: Short CBC 01/16/18 Range/Units 04:51 WBC 8.0 (4.3-11.1) K/mcL Hgb 7.3 L (12.9-16.9) g/dL Hct 20.9 L (37.5-50.1) % Plt Count 87 L (140-400) K/mcL Neutrophils # 4.4 (1.6-8.9) K/mcL BMP 01/16/18 04:51 Sodium 134 L Potassium 4.8 Chloride 109 H Carbon Dioxide 20 L BUN 16 Creatinine 2.24 H Glucose 259 H Calcium 7.9 L - ABG Interpretation ABG results: ABG ABG pH 7.39 pH Units (7.32-7.45) 01/14/18 18:01 ABG pCO2 38 mmHg (35-45) 01/14/18 18:01 ABG pO2 132 mmHg (85-104) H 01/14/18 18:01 ABG O2 Saturation 99 % (95-98) H 01/14/18 18:01 PT/INR, D-dimer PT 19.6 Seconds (9.4-12.1) H 01/15/18 07:26 - VTE Documentation of Mechanical Device: Venous foot pump, device Consult Discharge Plan - Plan Referrals: Niurka Arana, [employer]ERSON [Primary Care Provider] -
[2018-01-16] MEDS: Furosemide 20 MG TABLET PO SCH (17:07)
[2018-01-16] MEDS: Insulin DETEMIR 100 UNIT/ML X5UNITS SQ SCH (20:39)
[2018-01-16] MEDS: *HR* HYDROcodone/Acet 10/325 mg TABLET PO PRN (20:39)
[2018-01-16] MEDS: WATER FOR INJ IVPB SCH (20:40)
[2018-01-16] MEDS: CEFOTAXIME IVPB SCH (20:40)
[2018-01-17 04:26] LABS: Immature Granulocytes % 0.3 % (0-4); Red Cell Distribution Width 18.6 % (11.5-14.5)
[2018-01-17 04:28] LABS: Calcium 8.3 mg/dL (8.6-10.3); Potassium 5.3 mEq/L (3.5-5.1)
[2018-01-17 04:42] LABS: Basophils # 0.1 K/mcL (0.0-0.2); Basophils % 0.8 %; Eosinophils # 0.4 K/mcL (0.0-0.6); Eosinophils % 4.1 %; Hematocrit 21.3 % (37.5-50.1); Hemoglobin 7.4 g/dL (12.9-16.9); Lymphocytes # 1.9 K/mcL (0.6-4.6); Lymphocytes % 20.9 %; Mean Corpuscular HGB Conc 34.7 g/dL (31.6-35.5); Mean Corpuscular Hemoglobin 28.5 pg (28.0-33.3); Mean Corpuscular Volume 81.9 fL (83.0-100.0); Monocytes # 1.7 K/mcL (0.0-1.3); Monocytes % 19.3 %; Neutrophils # 4.9 K/mcL (1.6-8.9); Segmented Neutrophils % 54.6 %
[2018-01-17 05:29] LABS: Platelet Count 83 K/mcL (140-400)
[2018-01-17 05:30] LABS: Anisocytosis 2+ (Not Present); Burr Cells 1+ (Not Present); Platelet Estimate Decreased (Normal); Poikilocytosis 2+ (Not Present)
[2018-01-17] MEDS: Albumin 25% 25gram/100mL 25 GM/100 ML IV.SOLN IVPB SCH ×2 (05:35→19:48)
[2018-01-17] MEDS: Furosemide 20 MG TABLET PO SCH (05:35)
[2018-01-17] MEDS: Lactulose Oral Soln 20 GM/30 ML UDC PO SCH ×2 (09:05→19:51)
[2018-01-17] MEDS: Nicotine 14 MG PATCH.TD24 TD SCH (09:06)
[2018-01-17] MEDS: Aspirin Enteric Coated 81 MG Tablet PO SCH (09:06)
[2018-01-17] MEDS: WATER FOR INJ IVPB SCH ×2 (09:07→19:51)
[2018-01-17] MEDS: CEFOTAXIME IVPB SCH ×2 (09:07→19:51)
[2018-01-17] MEDS: Insulin LISPRO 300 UNITS/3 ML VIAL SQ SCH ×4 (09:09→21:56)
--- NOTE | 2018-01-17 10:29 | Nephrology Progress Note ---
Date of Encounter: 01/17/18 Time of Encounter: 10:27 - Assessment and Plan (1) Hyperkalemia Current Visit: Yes Status: Acute K+ 5.3 Do not recommend any further Kayexalate Continue renal diet which is low K+ diet (2) Hyponatremia Current Visit: Yes Status: Acute Continue Albumin and Midodrine Continue Lasix; may need further increase UOP only 425ml (3) Anemia Current Visit: Yes Status: Acute Hgb 7.4 Transfuse per parameters per primary team Qualifiers: Anemia type: due to chronic kidney disease Chronic kidney disease stage: stage 3 (moderate) Qualified Code(s): N18.3 - Chronic kidney disease, stage 3 (moderate); D63.1 - Anemia in chronic kidney disease; D63.1 - Anemia in chronic kidney disease (4) Uncontrolled diabetes mellitus Current Visit: Yes Status: Acute per primary team Qualifiers: Diabetes mellitus type: type 1 Diabetes mellitus complication status: with kidney complications Diabetes mellitus complication detail: with chronic kidney disease Chronic kidney disease stage: stage 3 (moderate) Qualified Code(s): E10.22 - Type 1 diabetes mellitus with diabetic chronic kidney disease ; E10.65 - Type 1 diabetes mellitus with hyperglycemia; E10.65 - Type 1 diabetes mellitus with hyperglycemia; E10.65 - Type 1 diabetes mellitus with hyperglycemia; E10.65 - Type 1 diabetes mellitus with hyperglycemia; N18.3 - Chronic kidney disease, stage 3 (moderate); N18.3 - Chronic kidney disease, stage 3 (moderate) Subjective Principal diagnosis: LISA, Hyperkalemia, Hyponatremia, edema, etc Interval history: Patient seen and examined. Sleeping soundly throughout exam Objective - Vital Signs Vital signs: Vital Signs Temp Pulse Resp BP Pulse Ox 01/17/18 07:07 98.0 F 58 162/64 01/17/18 05:44 97.8 F 59 18 111/64 90 01/16/18 20:00 98 F 63 18 120/68 91 01/16/18 16:25 98.2 F 64 16 120/72 99 01/16/18 12:03 97.7 F 63 16 122/68 96 Intake and Output 01/16/18 01/17/18 01/17/18 23:59 07:59 15:59 Intake Total 240 / 240 240 / 240 120 / 120 Output Total 200 / 200 Balance 40 / 40 240 / 240 120 / 120 Intake: IV Fluids 120 / 120 Flexbumin 25 gm In 100 ml @ 60 100 / 100 mls/hr IVPB Q12HR [facility]ATHI Rx#: [id number] Claforan 2,000 MG In Water for 20 / 20 inj. (sterile) 20 ML @ 600 mls/ hr IVPB Q12H MALATHI Rx#:[id number] Oral 120 / 120 240 / 240 120 / 120 Output: Urine 200 / 200 Other: Meal Breakfast Percent of Meal Consumed 100% # Voids 1 2 Weight 92 kg Blood Glucose* 217 162 Patient Weight 01/17/18 23:59 Weight 92 kg - General Appearance General appearance: Present: well-developed, well-nourished EENT: Present: ATNC, mucous membranes moist, hearing intact, vision intact Neck: Present: supple Respiratory: Present: course breath sounds Cardiology: Present: no edema, normal S1, normal S2 Gastrointestinal: Present: no tenderness, no guarding Integumentary: Present: warm and dry - Lab 01/17/18 03:33 01/17/18 03:33 Most recent lab results ABG pH 7.39 pH Units (7.32-7.45) 01/14/18 18:01 ABG pCO2 38 mmHg (35-45) 01/14/18 18:01 ABG pO2 132 mmHg (85-104) H 01/14/18 18:01 ABG HCO3 23 mEq/L (21-27) 01/14/18 18:01 ABG O2 Saturation 99 % (95-98) H 01/14/18 18:01 Calcium 8.3 mg/dL (8.6-10.3) L 01/17/18 03:33 Phosphorus 4.4 mg/dL (2.7-4.5) 01/14/18 05:16 Magnesium 1.5 mg/dL (1.6-2.6) L 01/14/18 05:16 Urine Creatinine 55 mg/dL 01/12/18 11:47 Urine Sodium 99.8 mEq/L 01/12/18 11:47 Urine Total Protein SEE NOTE mg/d (10-140) 01/13/18 13:25 - VTE Documentation of Mechanical Device: Venous foot pump, device Consult Discharge Plan - Plan Referrals: Niurka Arana, ELKIN [Primary Care Provider] -
--- NOTE | 2018-01-17 14:07 | Electrocardiograph Report ---
[facility] Test Date: 2018-01-14 Pat Name: Karson Trimble Department: 111 Room: 2NE22 Gender: M Ball Maker: YAN : 1965 Requested By: Mary Lou Euceda Order Number: [id number] Reading MD: Zach Echeverria MD Measurements Intervals Brohman Rate: 51 P: 61 MD: 176 QRS: -47 QRSD: 174 T: 11 QT: 522 QTc: 500 Interpretive Statements SINUS BRADYCARDIA MARKED LEFT AXIS DEVIATION RIGHT BUNDLE BRANCH BLOCK POSSIBLE SEPTAL MYOCARDIAL INFARCTION, OF INDETERMINATE AGE Electronically Signed On 01-17-2018 14:05:45 EST by Zach Echeverria MD
--- NOTE | 2018-01-17 15:06 | Internal Med Progress Note ---
Date of Encounter: 01/17/18 Time of Encounter: 15:06 - Subjective Interval history: Interval Changes: Feeling better. Denies sob but abdominal distention mildly painfull Hepatic cirrhosis: Secondary to MORALES Continue to monitor Ascities pay need therapeutic paracentesis Diuresis Albumin given Continue Cefotaxime No peritoneal signs. No spironolactone with high potassium Hx of pancreatic cancer: S/p Whipple Hyperkalemia Secondary to LISA K+ 5.3 D/C Kayexalate Continue renal diet (low in potassium) Hyponatremia Continue Albumin and Midodrine Continue Lasix; may need further increase UOP only 425ml Anemia Current Visit: Yes Status: Acute Currently stable in Hgb 7.4 range Transfuse per parameters (<7) Poorly controlled diabetes mellitus-1 Continue levemir and SSI Humalog (Med. Dose) - Constitutional Vitals: Temp Pulse Resp BP Pulse Ox 98.0 F 58 18 162/64 90 01/17/18 07:07 01/17/18 07:07 01/17/18 05:44 01/17/18 07:07 01/17/18 05:44 General appearance: Present: mild distress, A&O X 3, pleasant, no acute distress , answers questions appropriately - Head Head exam: Present: atraumatic, normocephalic - Eye Eye exam: Present: EOMI, normal appearance, PERRL, conjuntiva pink, sclera anicteric - Neck Neck exam general surgery: Present: supple. Absent: lymphadenopathy, tenderness , nuchal rigidity, thyromegaly - Respiratory Respiratory exam: Present: CTAB. Absent: accessory muscle use, chest wall tenderness, respiratory distress, rhonchi, stridor - Cardiovascular Cardiovascular exam: Present: RRR, +S1, +S2 - GI/Abdominal GI/Abdominal exam: Present: soft, no peritoneal signs. Absent: hernia, mass, rebound, rigid, splenomegaly - Neurological Exam Neurological exam: Present: alert, CN II-XII intact, no focal deficits. Absent : normal gait, reflexes normal - Psychiatric Psychiatric exam: Present: normal affect, normal mood - Skin Skin exam: Present: excoriation, intact. Absent: cyanosis, mottled Internal Medicine: Result - Labs CBC & Chem 7: 01/17/18 03:33 01/17/18 03:33 Labs: Short CBC 01/17/18 Range/Units 03:33 WBC 8.9 (4.3-11.1) K/mcL Hgb 7.4 L (12.9-16.9) g/dL Hct 21.3 L (37.5-50.1) % Plt Count 83 L (140-400) K/mcL Neutrophils # 4.9 (1.6-8.9) K/mcL BMP 01/17/18 03:33 Sodium 135 L Potassium 5.3 H Chloride 110 H Carbon Dioxide 21 L BUN 17 Creatinine 1.99 H Glucose 193 H Calcium 8.3 L - ABG Interpretation ABG results: ABG ABG pH 7.39 pH Units (7.32-7.45) 01/14/18 18:01 ABG pCO2 38 mmHg (35-45) 01/14/18 18:01 ABG pO2 132 mmHg (85-104) H 01/14/18 18:01 ABG O2 Saturation 99 % (95-98) H 01/14/18 18:01 PT/INR, D-dimer PT 19.6 Seconds (9.4-12.1) H 01/15/18 07:26 - VTE Documentation of Mechanical Device: Venous foot pump, device Consult Discharge Plan - Plan Referrals: Niurka Arana, ELKIN [Primary Care Provider] -
[2018-01-17] MEDS: *HR* HYDROcodone/Acet 10/325 mg TABLET PO PRN (19:45)
[2018-01-17] MEDS: Furosemide 40 MG/4 ML VIAL IVP SCH (19:51)
[2018-01-17] MEDS: Insulin DETEMIR 100 UNIT/ML X5UNITS SQ SCH (21:56)
[2018-01-18 03:21] LABS: Mean Corpuscular Hemoglobin 28.6 pg (28.0-33.3); Red Cell Distribution Width 18.6 % (11.5-14.5)
[2018-01-18 03:23] LABS: Basophils # 0.1 K/mcL (0.0-0.2); Basophils % 0.9 %; Eosinophils # 0.4 K/mcL (0.0-0.6); Eosinophils % 4.6 %; Hematocrit 20.8 % (37.5-50.1); Hemoglobin 7.2 g/dL (12.9-16.9); Immature Granulocytes % 0.2 % (0-4); Immature Platelets 15.6 % (1.1-6.1); Lymphocytes # 1.9 K/mcL (0.6-4.6); Lymphocytes % 21.8 %; Mean Corpuscular HGB Conc 34.6 g/dL (31.6-35.5); Mean Corpuscular Volume 82.5 fL (83.0-100.0); Monocytes # 1.7 K/mcL (0.0-1.3); Monocytes % 19.7 %; Neutrophils # 4.5 K/mcL (1.6-8.9); Red Blood Count 2.52 M/mcL (4.19-5.50); Segmented Neutrophils % 52.8 %
[2018-01-18 03:33] LABS: Platelet Count 81 K/mcL (140-400)
[2018-01-18 03:38] LABS: Calcium 8.4 mg/dL (8.6-10.3); Potassium 4.9 mEq/L (3.5-5.1)
[2018-01-18 03:51] LABS: Anisocytosis 2+ (Not Present); Macrocytosis Present (Not Present); Microcytosis Present (Not Present); Platelet Estimate Decreased (Normal); Poikilocytosis 1+ (Not Present); Polychromasia 1+ (Not Present); Target Cells 1+ (Not Present)
[2018-01-18] MEDS: Albumin 25% 25gram/100mL 25 GM/100 ML IV.SOLN IVPB SCH (05:28)
--- NOTE | 2018-01-18 07:30 | Nephrology Progress Note ---
Date of Encounter: 01/18/18 Time of Encounter: 09:45 - Assessment and Plan (1) Hyperkalemia Status: Acute Stable renal function continues today: cont Midodrine and Albumin. Yesterday I had increased the lasix back to IV BID with albumin and yet he remains stable with the SCr plus his UOP has improved to about 1400 for the 24hr period. This will help address his ongoing peripheral edema. Would recommend avoiding ever restarting Spironolactone d/t the hyperkalemia, so this will make treating his hx of ascites and peripheral edema somewhat more challenging. Ascites with peripheral edema: resume diuretics, but sans spironolactone. Hypervolemic hyponatremia: continue diuretics, so as to help improve his volume status and therefore help correct the hyponatremia. Since he has a hx of cirrhosis, I would not add Tolvaptan at this time. Continue to follow a renal protective strategy: dose Rx by GFR, avoid nephrotoxins such Bactrim, Contrast and NSAIDs. Will follow with you. Thank you. (2) Hyponatremia Status: Acute See above (3) Chronic kidney disease (CKD), stage III (moderate) Status: Chronic See above. Suspecting HRS and so have provided Albumin and Midodrine and had held diuretics for a few days with improvement of SCr noted, so now slowly reintroducing diuretics. Subjective Principal diagnosis: LISA, Hyperkalemia, Hyponatremia, edema, etc Interval history: Pt was s/e earlier today. He did not affirm N/V/D or uremic symptoms. He did affirm having a good appetite. He feels that his swelling is overall better, he affirmed. Objective - Vital Signs Vital signs: Vital Signs Temp Pulse Resp BP Pulse Ox 01/18/18 04:00 98 F 68 16 122/72 92 01/18/18 00:00 97.9 F 72 16 128/84 91 01/17/18 20:30 93 01/17/18 19:00 97.9 F 66 16 121/71 93 01/17/18 15:00 98.1 F 66 16 119/65 94 Intake and Output 01/17/18 01/17/18 01/18/18 15:59 23:59 07:59 Intake Total 500 / 500 580 / 580 120 / 120 Output Total 400 / 400 1000 / 1000 Balance 100 / 100 -420 / -420 120 / 120 Intake: IV Fluids 20 / 20 100 / 100 Flexbumin 25 gm In 100 ml @ 60 100 / 100 mls/hr IVPB Q12HR [facility] Rx#: [id number] Claforan 2,000 MG In Water for 20 / 20 inj. (sterile) 20 ML @ 600 mls/ hr IVPB Q12H [facility] Rx#:[id number] Oral 480 / 480 480 / 480 120 / 120 Output: Urine 400 / 400 1000 / 1000 Other: Meal Lunch Dinner Percent of Meal Consumed 100% 100% # Voids 3 Weight 95 kg Blood Glucose* 208 213 Patient Weight 01/18/18 23:59 Weight 95 kg - General Appearance Exam: Exam: General appearance: Present: well-developed, appears started age, obese, fatigue , frail EENT: Present: ATNC, PERRL, mucous membranes moist Neck: Present: supple Respiratory: Present: clear Cardiology: Present: edema, regular rate, regular rhythm, normal S1, normal S2, +MYNOR Gastrointestinal: Present: normoactive bowel sounds, no tenderness, no guarding , +mild ascites Integumentary: Present: no rash, warm and dry Neurologic: Present: no focal deficit, alert and oriented x3 Musculoskeletal: Present: no deformities, no erythema, no cyanosis Psychiatric: Present: mood/affect appropriate, cooperative - Lab 01/18/18 02:45 01/18/18 02:45 Most recent lab results ABG pH 7.39 pH Units (7.32-7.45) 01/14/18 18:01 ABG pCO2 38 mmHg (35-45) 01/14/18 18:01 ABG pO2 132 mmHg (85-104) H 01/14/18 18:01 ABG HCO3 23 mEq/L (21-27) 01/14/18 18:01 ABG O2 Saturation 99 % (95-98) H 01/14/18 18:01 Calcium 8.4 mg/dL (8.6-10.3) L 01/18/18 02:45 Phosphorus 4.4 mg/dL (2.7-4.5) 01/14/18 05:16 Magnesium 1.5 mg/dL (1.6-2.6) L 01/14/18 05:16 Urine Creatinine 55 mg/dL 01/12/18 11:47 Urine Sodium 99.8 mEq/L 01/12/18 11:47 Urine Total Protein SEE NOTE mg/d (10-140) 01/13/18 13:25 - VTE Documentation of Mechanical Device: Intermittent pneumatic compression device Consult Discharge Plan - Plan Referrals: Niurka Arana CNP [Primary Care Provider] - 01/25/18 1:15 pm Prescriptions: Furosemide [Lasix] 40 mg PO BID 30 Days #60 tab Lactulose 20 gm PO BID 30 Days #60 udc Midodrine [ProAmatine] 2.5 mg PO 0800,1200,1700 30 Days #90 tablet Nicotine Patch [Nicoderm] 14 mg TD DAILY 14 Days #14 patch.[email or web address]
[2018-01-18] MEDS: WATER FOR INJ IVPB SCH (08:17)
[2018-01-18] MEDS: CEFOTAXIME IVPB SCH (08:17)
[2018-01-18] MEDS: Insulin LISPRO 300 UNITS/3 ML VIAL SQ SCH ×2 (08:18→12:05)
[2018-01-18] MEDS: Aspirin Enteric Coated 81 MG Tablet PO SCH (08:18)
[2018-01-18] MEDS: Furosemide 40 MG/4 ML VIAL IVP SCH (08:18)
[2018-01-18] MEDS: Lactulose Oral Soln 20 GM/30 ML UDC PO SCH (08:19)
[2018-01-18] MEDS: Nicotine 14 MG PATCH.TD24 TD SCH (08:23)
--- NOTE | 2018-01-18 15:34 | Internal Med Progress Note ---
Date of Encounter: 01/18/18 Time of Encounter: 15:32 - Subjective Interval history: Interval Changes: Feeling better. Denies sob but abdominal distention mildly painfull Hepatic cirrhosis: Secondary to MORALES Continue to monitor Ascities pay need therapeutic paracentesis Diuresis Albumin given Continue Cefotaxime No peritoneal signs. No spironolactone with high potassium Hx of pancreatic cancer: S/p Whipple Hyperkalemia Secondary to LISA K+ 5.3 D/C Kayexalate Continue renal diet (low in potassium) Hyponatremia Continue Albumin and Midodrine Continue Lasix; may need further increase UOP only 425ml Anemia Current Visit: Yes Status: Acute Currently stable in Hgb 7.4 range Transfuse per parameters (<7) Poorly controlled diabetes mellitus-1 Continue levemir and SSI Humalog (Med. Dose) Assessment and Plan (1) Hyperkalemia Current Visit: Yes Status: Acute Stable renal function continues today: cont Midodrine and Albumin. Yesterday I had increased the lasix back to IV BID with albumin and yet he remains stable with the SCr plus his UOP has improved to about 1400 for the 24hr period. This will help address his ongoing peripheral edema. Would recommend avoiding ever restarting Spironolactone d/t the hyperkalemia, so this will make treating his hx of ascites and peripheral edema somewhat more challenging. Ascites with peripheral edema: resume diuretics, but sans spironolactone. Hypervolemic hyponatremia: continue diuretics, so as to help improve his volume status and therefore help correct the hyponatremia. Since he has a hx of cirrhosis, I would not add Tolvaptan at this time. Continue to follow a renal protective strategy: dose Rx by GFR, avoid nephrotoxins such Bactrim, Contrast and NSAIDs. Will follow with you. Thank you. - Constitutional Vitals: Temp Pulse Resp BP Pulse Ox 98.1 F 70 15 124/73 92 01/18/18 07:38 01/18/18 07:38 01/18/18 07:38 01/18/18 07:38 01/18/18 07:38 General appearance: Present: mild distress, A&O X 3, pleasant, no acute distress , answers questions appropriately Internal Medicine: Result - Labs CBC & Chem 7: 01/18/18 02:45 01/18/18 02:45 Labs: Short CBC 01/18/18 Range/Units 02:45 WBC 8.5 (4.3-11.1) K/mcL Hgb 7.2 L (12.9-16.9) g/dL Hct 20.8 L (37.5-50.1) % Plt Count 81 L (140-400) K/mcL Neutrophils # 4.5 (1.6-8.9) K/mcL BMP 01/18/18 02:45 Sodium 135 L Potassium 4.9 Chloride 108 H Carbon Dioxide 21 L BUN 18 Creatinine 1.98 H Glucose 232 H Calcium 8.4 L - ABG Interpretation ABG results: ABG ABG pH 7.39 pH Units (7.32-7.45) 01/14/18 18:01 ABG pCO2 38 mmHg (35-45) 01/14/18 18:01 ABG pO2 132 mmHg (85-104) H 01/14/18 18:01 ABG O2 Saturation 99 % (95-98) H 01/14/18 18:01 PT/INR, D-dimer PT 19.6 Seconds (9.4-12.1) H 01/15/18 07:26 - VTE Documentation of Mechanical Device: Intermittent pneumatic compression device Consult Discharge Plan - Plan Referrals: Niurka Arana CNP [Primary Care Provider] -
--- NOTE | 2018-01-18 16:04 | Discharge Summary ---
Orders not resulted at time of discharge: Pending orders 01/13/18 07:56 Occult Blood,Stool [BF] Routine 01/14/18 17:58 Culture,Blood [BC] Stat Date of Encounter: 01/18/18 Time of Encounter: 15:56 Hospital course: The patient is a 52 year old male with history of cirrhosis, pancreas cancer S/ P Whipple surgery, diabetes, hypertension, CAD S/P CABG, presented to ER for bilateral leg pain for 4 days. He denied numbness or tingling but did c/o has mild weakness. Patient denied saddle anesthesia, urinary or fecal incontinence. He also denied shortness of breath, chest pain, nausea or vomiting. In ER, he was found uncontrolled diabetes with glucose level over 500 with hyperkalemia as a potassium level at 6.5. Patient was given bicarbonate and Lasix in ER and was admitted for further management. he was found to have mild ascites w/o signs of peritonitis. Additionally he presented with an LISA on CKD-III and Nephrology was consulted. He was mildly hypotensive so Midodrine was added. His renal function improved steadily with assistancce from Nephrology and the follwing recommendations were made. He's to continue lasix to help with his ascites and peripheral edema but he should not resume Spironolactone to prevent hyperkalemia. He was given Albumin to help with his edema and ascites. He's to continue to follow a renal protective strategy avoiding nephrotoxins such Bactrim, Contrast agents and NSAIDs. Medications should be renally dosed. He's to f/u with Nephrology as an OP. He has a GI/ hepatology specialist at [facility] per pt report and has an upcoming appointment to follow his cirrhosis. He insisted on discharge this afternoon to attend to family matters and agrees to f/u as noted above. He was hemodynamically stable with improved renal function and resolution of his original back and leg pain at the time of discharge. Discharge discussed with: patient, nurse Time spent discussing smoking cessation with patient: more than 10 minutes - Time Spent with Patient Total time spent providing and/or coordinating discharge services: Greater than 30 minutes - Discharge Medications Prescriptions: Furosemide [Lasix] 40 mg PO BID 30 Days #60 tab Lactulose 20 gm PO BID 30 Days #60 udc Midodrine [ProAmatine] 2.5 mg PO 0800,1200,1700 30 Days #90 tablet Nicotine Patch [Nicoderm] 14 mg TD DAILY 14 Days #14 patch.td24 Home Medications: Aspirin [Adult Low Dose Aspirin EC] 81 mg PO DAILY 10/29/15 [History] Atorvastatin [Lipitor] 40 mg PO HS 10/29/15 [History] Insulin ASPART [NovoLOG] 0 unit SQ TIDWM 10/29/15 [History] Levothyroxine [Synthroid] 175 mcg PO 0630 10/29/15 [History] Omeprazole [PriLOSEC] 40 mg PO DAILY 10/29/15 [History] Prochlorperazine Maleate [Compazine] 10 mg PO Q6HR PRN #120 tablet 11/17/15 [Rx] Insulin Degludec [Tresiba Flextouch U-100] 15 - 20 unit SQ HS 04/26/17 [History] Ropinirole HCl [Requip] 3 mg PO HS #30 tablet 07/07/17 [Rx] Lipase/Protease/Amylase [Creon Dr 6,000 Units Capsule] 4 each PO TIDWM #480 cap 07/19/17 [Rx] Ciprofloxacin HCl [Cipro] 500 mg PO BID 01/11/18 [History] HYDROcodone/Acet 10/325 mg [[place] 10-325 mg] 1 tab PO BID PRN 01/11/18 [History] Nadolol 20 mg PO DAILY 01/11/18 [History] Rifaximin [Xifaxan] 550 mg PO BID 01/11/18 [History] Sennosides/Docusate Sodium [Senna Plus] 2 tab PO HS PRN 01/11/18 [History] DiphenhydraMINE [Benadryl] 25 mg IVP Q6HR PRN vial 01/18/18 [Rx] Furosemide [Lasix] 40 mg PO BID 30 Days #60 tab 01/18/18 [Rx] Lactulose 20 gm PO BID 30 Days #60 udc 01/18/18 [Rx] Midodrine [ProAmatine] 2.5 mg PO 0800,1200,1700 30 Days #90 tablet 01/18/18 [Rx] Nicotine Patch [Nicoderm] 14 mg TD DAILY 14 Days #14 patch.td24 01/18/18 [Rx] Allergies/Adverse Reactions: 3 Allergy/AdvReac Type Severity Reaction Status Date / Time metformin Allergy Unknown unknown Verified 08/03/17 11:06 morphine Allergy Unknown Unknown Verified 08/03/17 11:06 Penicillins Allergy Unknown Rash Verified 08/03/17 11:06 Date of admission: 01/11/18 21:24 Primary care physician: Niurka Arana CNP Consults: 01/12/18 13:19 Consult to Nurse Navigator [CONS] Routine Comment: 01/13/18 20:58 consult to director prospect [Consult to Nutrition] [CONS] Routine Comment: Consulting Provider: NUTRITION Reason for Dietary Consult: MST Score - Constitutional Vitals: Temp Pulse Resp BP Pulse Ox 98.1 F 70 15 124/73 92 01/18/18 07:38 01/18/18 07:38 01/18/18 07:38 01/18/18 07:38 01/18/18 07:38 General appearance: Present: A&O X 3, pleasant, no acute distress, answers questions appropriately - Head Head exam: Present: atraumatic, normocephalic - Eye Eye exam: Present: PERRL, conjuntiva pink, sclera anicteric Pupils: Present: PERRL - Neck Neck exam general surgery: Present: supple, trachea midline. Absent: lymphadenopathy, tenderness - Respiratory Respiratory exam: Present: CTAB. Absent: accessory muscle use, rales, respiratory distress, rhonchi, stridor, wheezes - Cardiovascular Cardiovascular exam: Present: RRR, +S1, +S2. Absent: diastolic murmur, gallop, rubs, systolic murmur - GI/Abdominal GI/Abdominal exam: Present: distended, normal bowel sounds, soft, no peritoneal signs. Absent: guarding, rebound, rigid, tenderness - Extremities Exam Extremities exam: Present: warm, radial pulses palpable and symmetrical. Absent : calf tenderness, cyanotic, pedal edema - Neurological Exam Neurological exam: Present: CN II-XII intact, oriented X3, no focal deficits. Absent: pronater drift, facial droop, speech deficit - Psychiatric Psychiatric exam: Present: normal affect, normal mood - Skin Skin exam: Present: dry, intact - Patient Status Disposition: Home, Self-Care Condition: Fair - Discharge Instructions Follow Up With: Niurka Arana CNP [Primary Care Provider] - 01/25/18 1:15 pm - VTE Documentation of Mechanical Device: Intermittent pneumatic compression device
[2018-01-18 16:08] VITALS: BP 128/75
== END 2018-01-18 18:34 | disposition home or self-care (01) | DRG 292 ==
LOC: EMEROO 13:58 → 2NENU 13:58
PROVIDERS: ADMIT Nurse Practitioner Family; ATTEND Student in an Organized Health Care Education/Training Program

== ENCOUNTER 2018-04-05 19:13 | Inpatient (IN) ==
--- NOTE | 2018-04-05 23:33 | Event Note ---
Date of Encounter: 04/05/18 Time of Encounter: 23:32 Patient was seen and examined. I agree with the H&P as written by the Resident Physician. Briefly, patient is 53 with h/o CKD3, liver cirrhosis, diastolic HF, DM, pacreatic cancer s/p whipple, HTN, CAD s/p CABG , chronic anemia who is transferred from [facility] for hypoxia and generalized edema. The patient has been out of his Lasix for couple days. He only takes Lasix every other day he says. He is been gaining weight for the last month or so. He has gained about 30 pounds. He is short of breath with minimal exertion and even upon conversation. He does not see a lookback coordinator. The patient's laboratory workup showed findings of creatinine around 4 which is above his baseline of around 1.7 -2.0. Potassium was 5.8. LFTs were elevated consistent with liver cirrhosis. BNP was in the 3000s. Chest x-ray showed vascular congestion. The patient was given Lasix and sent here. He is hemodynamically stable but is on supplemental oxygen here. Alert oriented 3 RRR. S1, S2, +JVD Crackles bilaterally Distended abdomen, generalized anasarca, +BS, NT 2+ LE edema, 2+ DP Nonfocal neurologically Admit for volume overload/hypoxia from ??CHF exacerbation vs, renal failure vs liver failure Repeat labs Lasix 40 mg BID Fluid restriction O2 support Nebs c/s nephrology Abd US, may need paracentesis Recent echo and renal US noted Labs in am.
[2018-04-05] MEDS ORDERED: Naloxone 0.4 MG/ML INJ IVP PRN (23:37)
--- NOTE | 2018-04-05 23:51 | Internal Med History&Physical ---
Date of Encounter: 04/06/18 Time of Encounter: 11:15 Internal Medicine - H&P: HPI Chief complaint: SOB at rest Admitted From: Home Plans for Post Hospital Care: Home History of present illness: Mr. Trimble is a 53 year old male w/ pmh of HFpEF, CKD3, pancreatic cancer s/p whipple, MORALES/liver cirrhosis presents with 2 day hx of SOB. Patient for the last month has had increased SOB on exertion, bilateral leg edema, orthopnea, and PND. The last two days patient has run out of lasix. His SOB progressed to the point where he was having difficulty breathing at rest which lead him to go to [facility] ED. Patient was then transferred to [place] for suspected CHF exacerbation. Patient states that his lasix has controlled his SOB in the past. Movement worsens it, rest relieves symptoms. He describes it as water in his lungs. PAtient states he's had about 20 lbs weight gain in the last month as well. He denies productive cough, chest pain, nausea, vomiting, fever , chills. Past Med Surg Social Fam HX - Past Medical History Medical history: cancer, cirrhosis, CHF, coronary artery disease, diabetes, hyperlipidemia, hypertension, thyroid disease Psychiatric history: anxiety, bipolar, depression - Past Surgical History Surgical History: cancer surgery, cholecystectomy, colectomy, coronary bypass ( CABG), splenectomy - Social History Smoking Status: Current every day smoker Smokeless Tobacco Status: No Alcohol use: none Drug use: none - Family History Father Adopted: [place]: Rex Family Member Ethnicity: Non- Living Status: Age at : 83 Cause of : cancer Hx Family Cardiac Disorders: No Hx Family Respiratory Disorders: No Hx Family Cancer: Yes Hx Family GI Disorders: No Hx Family Genitourinary Disorders: No Hx Family Endocrine Disorder: No Hx Family Musculoskeletal Disorders: No Hx Family Neuromuscular Disorders: No Hx Family Neurologic Disorders: No Hx Family HEENT Disorders: No Hx Family Autoimmune Disorders: No Hx Family Reproductive Disorders: No Hx Family Psychosocial Disorders: No Hx Family Medical Disorders: No Mother Adopted: [place]: Keysha Family Member Ethnicity: Non- Living Status: Still Living Hx Family Cardiac Disorders: Yes Hx Family Respiratory Disorders: Yes Hx Family Cancer: No Hx Family GI Disorders: No Hx Family Genitourinary Disorders: No Hx Family Endocrine Disorder: Yes Hx Family Musculoskeletal Disorders: No Hx Family Neuromuscular Disorders: No Hx Family Neurologic Disorders: No Hx Family HEENT Disorders: No Hx Family Autoimmune Disorders: No Hx Family Reproductive Disorders: No Hx Family Psychosocial Disorders: No Hx Family Medical Disorders: No Internal Medicine - H&P: Meds Aspirin [Adult Low Dose Aspirin EC] 81 mg PO DAILY 10/29/15 [History] Atorvastatin [Lipitor] 40 mg PO HS 10/29/15 [History] Insulin ASPART [NovoLOG] 0 unit SQ TIDWM 10/29/15 [History] Levothyroxine [Synthroid] 175 mcg PO 0630 10/29/15 [History] Omeprazole [PriLOSEC] 40 mg PO DAILY 10/29/15 [History] Prochlorperazine Maleate [Compazine] 10 mg PO Q6HR PRN #120 tablet 11/17/15 [Rx] Insulin Degludec [Tresiba Flextouch U-100] 15 - 20 unit SQ HS 04/26/17 [History] Ropinirole HCl [Requip] 3 mg PO HS #30 tablet 07/07/17 [Rx] Lipase/Protease/Amylase [Creon Dr 6,000 Units Capsule] 4 each PO TIDWM #480 cap 07/19/17 [Rx] Ciprofloxacin HCl [Cipro] 500 mg PO BID 01/11/18 [History] HYDROcodone/Acet 10/325 mg [[place] 10-325 mg] 1 tab PO BID PRN 01/11/18 [History] Nadolol 20 mg PO DAILY 01/11/18 [History] Rifaximin [Xifaxan] 550 mg PO BID 01/11/18 [History] Sennosides/Docusate Sodium [Senna Plus] 2 tab PO HS PRN 01/11/18 [History] DiphenhydraMINE [Benadryl] 25 mg IVP Q6HR PRN vial 01/18/18 [Rx] Furosemide [Lasix] 40 mg PO BID 30 Days #60 tab 01/18/18 [Rx] Lactulose 20 gm PO BID 30 Days #60 udc 01/18/18 [Rx] Midodrine [ProAmatine] 2.5 mg PO 0800,1200,1700 30 Days #90 tablet 01/18/18 [Rx] Nicotine Patch [Nicoderm] 14 mg TD DAILY 14 Days #14 patch.td24 01/18/18 [Rx] Diclofenac Sodium [Voltaren] 50 mg PO BID #30 tablet. 02/28/18 [Rx] 3 Allergy/AdvReac Type Severity Reaction Status Date / Time metformin Allergy Unknown unknown Verified 02/28/18 18:16 morphine Allergy Unknown Unknown Verified 02/28/18 18:16 Penicillins Allergy Unknown Rash Verified 02/28/18 18:16 All Systems PM: A 10-system review of systems was performed and is negative for pertinent findings except as documented above in the HPI. - Constitutional Constitutional: weakness, weight gain, no chills, no fever(s), no night sweats - EENT Eyes: no change in vision, no discharge, no pain, no photophobia Ears: no ear discharge, no ear pain, no tinnitus Nose, mouth and throat: no dysphagia, no nasal discharge, no neck pain, no sore throat - Cardiovascular Cardiovascular ROS IM: dyspnea on exertion, edema, orthopnea, paroxysmal nocturnal dyspnea, no chest pain, no diaphoresis, no dyspnea, no irregular heart rhythm, no lightheadedness, no palpitations, no syncope - Respiratory Respiratory: dyspnea on exertion, wheezing, chest congestion, no cough, no dyspnea, no excessive phlegm production - Gastrointestinal Gastrointestinal: no abdominal pain, no diarrhea, no hematemesis, no hematochezia, no melena, no nausea, no vomiting Additional comments: last bowel movement this morning - Musculoskeletal Musculoskeletal ROS IM: no numbness, no tingling - Integumentary Integumentary IM: no rash, no unusual bruising - Neurological Neurological ROS: no confusion, no convulsions, no focal weakness, no numbness, no tingling, no tremor(s) - Hematologic/Lymphatic Hematologic/Lymphatic: no easy bruising - Constitutional Vitals: Temp Pulse Resp BP Pulse Ox 97.9 F 52 17 99/62 100 04/05/18 23:18 04/05/18 23:18 04/05/18 23:18 04/05/18 23:18 04/05/18 23:18 General appearance: Present: cooperative, A&O X 3, pleasant, answers questions appropriately - Head Head exam: Present: atraumatic, normocephalic - Eye Eye exam: Present: PERRL, conjuntiva pink, sclera anicteric Pupils: Present: PERRL - Neck Neck exam general surgery: Present: supple, trachea midline. Absent: lymphadenopathy, thyromegaly - Respiratory Respiratory exam: Present: rales (at base of lungs). Absent: accessory muscle use, rhonchi, wheezes - Cardiovascular Cardiovascular exam: Present: JVD, RRR. Absent: diastolic murmur, gallop, rubs , systolic murmur - GI/Abdominal GI/Abdominal exam: Present: diminished bowel sounds, distended, hepatomegaly, normal bowel sounds, soft, no peritoneal signs. Absent: rebound, rigid, tenderness - Extremities Exam Extremities exam: Present: pedal edema (bilateral 1+), warm, radial pulses palpable and symmetrical. Absent: calf tenderness, cyanotic - Neurological Exam Neurological exam: Present: CN II-XII intact, oriented X3, no focal deficits. Absent: pronater drift, facial droop, speech deficit - Skin Skin exam: Present: dry, intact - Assessment and plan (1) Shortness of breath at rest Current Visit: Yes Status: Acute Assessment and plan: SOB at rest progressed for the last 2 days. Most likley due to CHF exacerbation but contributing factors could include yony on ckd, cirrhosis. Patient has known hx of CHF, and patient has been out of home lasix for 2 days. Last echo 01/2018 LVEF 60-65%, HFpEF. Patient has clinical signs of CHF exacerbation w/ SOB at rest, PND, orthopnea, bilateral leg edema. Will treat yony on ckd as fluid overload treatment with diuretics. Will evaluate for ascites. Patient was not on ACEI on admission, will need prescription upon discharge. - started IV lasix - beta carl - O2 support only if SpO2 <92% - Positionally prop patient - tele monitoring - monitor weight and I/O - cardiac diet, diabetic diet; fluid restriction 1.5L and Na 2g - abdominal U/S for fluid evaluation; possible paracentesis - continue home lactulose, rifaxamin, midodrine - avoid nephrotoxins and renal dose medications - hold cipro (2) Acute congestive heart failure Current Visit: Yes Status: Acute Assessment and plan: SOB at rest progressed for the last 2 days. Most likley due to CHF exacerbation but contributing factors could include yony on ckd, cirrhosis. Patient has known hx of CHF, and patient has been out of home lasix for 2 days. Last echo 01/2018 LVEF 60-65%, HFpEF. Patient has clinical signs of CHF exacerbation w/ SOB at rest, PND, orthopnea, bilateral leg edema. Will treat yony on ckd as fluid overload treatment with diuretics. Will evaluate for ascites. - continue lasix - O2 support only if SpO2 <92% - Positionally prop patient - tele monitoring - monitor weight and I/O - cardiac diet, diabetic diet; fluid restriction 1.5L and Na 2g - abdominal U/S for fluid evaluation; possible paracentesis - continue home lactulose, rifaxamin, cipro, midodrine - avoid nephrotoxins and renal dose medications Qualifiers: Qualified Code(s): I50.31 - Acute diastolic (congestive) heart failure (3) Acute on chronic kidney failure Current Visit: Yes Status: Acute Assessment and plan: Cr at [facility] 3.75. baseline Cr ~2, will reorder labs. Patient is currently fluid overloaded will treat with lasix. Qualifiers: Qualified Code(s): N17.9 - Acute kidney failure, unspecified; N18.3 - Chronic kidney disease, stage 3 (moderate) (4) Goals of care, counseling/discussion Current Visit: Yes Status: Acute Assessment and plan: Discussed with patient goals of care. Patient requests to not be resuscitated in the setting of cardiac or resp arrest. Patient's PoA default is . Code Status DNR/DNI/CCA (5) Anemia Current Visit: Yes Status: Acute Assessment and plan: hgb [address] [facility]. Reordered hgb, follow replacement protocol Qualifiers: Anemia type: unspecified type Qualified Code(s): D64.9 - Anemia, unspecified (6) Chronic kidney disease (CKD), stage III (moderate) Current Visit: Yes Status: Chronic Assessment and plan: see above (7) Cirrhosis Current Visit: Yes Status: Acute Assessment and plan: see above Qualifiers: Hepatic cirrhosis type: unspecified hepatic cirrhosis Qualified Code(s): K74.60 - Unspecified cirrhosis of liver (8) DVT prophylaxis Current Visit: Yes Status: Acute Assessment and plan: sq heparin (9) Pancreas cancer Current Visit: Yes Status: Chronic Assessment and plan: s/p whipple procedure. Ordered lipase. continue home enzyme replacement Qualifiers: Pancreatic malignancy location: unspecified Qualified Code(s): C25.9 - Malignant neoplasm of pancreas, unspecified (10) Uncontrolled diabetes mellitus Current Visit: Yes Status: Acute Assessment and plan: poorly controlled diabetes. hold home rx, will put on medium SSI Qualifiers: Diabetes mellitus type: type 1 Qualified Code(s): E10.22 - Type 1 diabetes mellitus with diabetic chronic kidney disease; E10.65 - Type 1 diabetes mellitus with hyperglycemia; N18.3 - Chronic kidney disease, stage 3 (moderate) (11) (HFpEF) heart failure with preserved ejection fraction Current Visit: Yes Status: Acute Assessment and plan: see above (12) Hypothyroid Current Visit: Yes Status: Acute Assessment and plan: will check TSH, continue home levothyroxine for now Qualifiers: Qualified Code(s): E03.9 - Hypothyroidism, unspecified (13) GERD (gastroesophageal reflux disease) Current Visit: Yes Status: Acute Assessment and plan: currently controlled, continue omeprazole. Qualifiers: Qualified Code(s): K21.9 - Gastro-esophageal reflux disease without esophagitis (14) Hyperkalemia Current Visit: Yes Status: Acute Assessment and plan: K+ at car was 5.8. reordered lab. will treat with lasix, insulin, and lactulose for now. - Time Spent With Patient Total time spent is greater than 50% in coordination of care (as documented) at patient's floor/unit and/or counseling patient:
[2018-04-06] MEDS ORDERED: D5% in Water 1,000 ML IVC PRN (00:04)
[2018-04-06] MEDS ORDERED: Dextrose Gel 15 GM/37.5 ML TUBE PO PRN ×2 (00:04)
[2018-04-06] MEDS ORDERED: *HR* Dextrose 50 % in Water (Syg) 50 ML SYRINGE IVP PRN (00:04)
[2018-04-06] MEDS ORDERED: Sennosides/Docusate Sodium TABLET PO PRN (00:05)
[2018-04-06 01:05] LABS: Basophils % 0.7 %
[2018-04-06 01:07] LABS: Basophils # 0.1 K/mcL (0.0-0.2); Eosinophils # 0.7 K/mcL (0.0-0.6); Eosinophils % 9.4 %; Hematocrit 22.1 % (37.5-50.1); Hemoglobin 7.8 g/dL (12.9-16.9); Immature Granulocytes % 0.3 % (0-4); Immature Platelets 15.4 % (1.1-6.1); Lymphocytes # 1.3 K/mcL (0.6-4.6); Mean Corpuscular HGB Conc 35.3 g/dL (31.6-35.5); Mean Corpuscular Hemoglobin 30.8 pg (28.0-33.3); Mean Corpuscular Volume 87.4 fL (83.0-100.0); Monocytes # 1.5 K/mcL (0.0-1.3); Monocytes % 21.3 %; Neutrophils # 3.5 K/mcL (1.6-8.9); Nucleated Red Blood Cells 0.3 /100 WBC (0); Red Blood Count 2.53 M/mcL (4.19-5.50); Red Cell Distribution Width 21.8 % (11.5-14.5); Segmented Neutrophils % 49.3 %
[2018-04-06 01:10] LABS: INR 2.6; Platelet Count 72 K/mcL (140-400); Prothrombin Time 28.5 Seconds (9.4-12.1)
[2018-04-06 01:13] LABS: Activated Partial Thrombo Time 101.6 Seconds (26.0-36.0)
[2018-04-06 03:04] LABS: Anisocytosis 2+ (Not Present); Platelet Estimate Marked Decrease (Normal)
[2018-04-06 03:05] LABS: Hypochromasia Present (Not Present)
[2018-04-06 03:12] LABS: Alanine Aminotransferase 20 Units/L (7-52); Albumin 2.1 g/dL (3.5-5.7); Albumin/Globulin Ratio 0.6 (1.1-2.2); Alkaline Phosphatase 171 Units/L (34-104); Aspartate Amino Transferase 57 Units/L (13-39); BUN/Creatinine Ratio 8 (6-26); Bilirubin,Total 2.1 mg/dL (0.3-1.0); Blood Urea Nitrogen 28 mg/dL (6-20); Calcium 7.9 mg/dL (8.6-10.3); Carbon Dioxide 18 mEq/L (23-29); Chloride 110 mEq/L (98-107); Cholesterol < 25 mg/dL (< 200); Globulin 3.6 g/dL (2.4-3.5); Glucose 125 mg/dL (70-105); HDL Cholesterol < 3 mg/dL (40-59); Magnesium 1.7 mg/dL (1.6-2.6); Osmolality,Calculated 283 (280-300); Phosphorous 6.8 mg/dL (2.7-4.5); Potassium 5.6 mEq/L (3.5-5.1); Sodium 133 mEq/L (136-145); Total Protein 5.7 g/dL (6.4-8.9); Triglycerides 25 mg/dL (< 150); eGFR For African Americans 22 (> 60); eGFR For Non-African Americans 18 (> 60)
[2018-04-06 03:21] LABS: Lipase < 3 Units/L (11-82)
[2018-04-06 03:22] LABS: Thyroid Stimulating Hormone 3.315 mcIU/mL (0.340-5.600)
[2018-04-06] MEDS: *HR* Heparin 5,000 UNIT/ML VIAL SQ SCH ×2 (05:49→16:57)
--- NOTE | 2018-04-06 08:48 | Nephrology Consult Note ---
Date of Encounter: 04/06/18 Time of Encounter: 08:43 Assessment and Plan (1) Acute kidney injury Current Visit: No Status: Resolved LISA workup to include: UA, urine culture, urine sodium, urine creatinine, urine eosinophils, CPK, serum uric acid, protein/creatinine ratio, and renal ultrasound Strict I/Os Renal diet-phos level at 6.8 Continue IV Lasix cautiously Avoid nephrotoxins if possible (2) Chronic kidney disease (CKD), stage III (moderate) Current Visit: Yes Status: Chronic CKD workup to include: PTH, C3 & C4 complements, Vit D 25-OH, FÉLIX, [place] Lambda Baseline GFR is 35, currently at 18 (3) Acute congestive heart failure Current Visit: Yes Status: Acute per primary team continue Lasix Qualifiers: Heart failure type: diastolic Qualified Code(s): I50.31 - Acute diastolic ( congestive) heart failure (4) Anemia Current Visit: Yes Status: Acute Hgb 7.8 Goal hgb 10-11 Transfuse per parameters per primary team Qualifiers: Anemia type: unspecified type Qualified Code(s): D64.9 - Anemia, unspecified History of Present Illness - Reason for Consult Consult date: 04/06/18 - Chief Complaint CKD stage 3, acute congestive heart failure, LISA, hyperkalemia - History of Present Illness Mr. Trimble is a 53 year old male w/ PMH of CHF, CAD, diabetes, thyroid disease , CKD3, pancreatic cancer s/p whipple, and MORALES/liver cirrhosis who was admitted for a with 2 day hx of SOB and large weight gain. He ran out of his Lasix two days ago. His SOB progressed to the point where he was having difficulty breathing at rest which lead him to go to [facility] [place] ED then transferred to [place]. Patient has never seen a tip printer and denies any family history of kidney disease. He states he has taken a lot of NSAIDs through the years. Baseline GFR is 35, currently at 18. Past Med Surg Social Fam HX - Past Medical History Medical history: cancer, cirrhosis, CHF, coronary artery disease, diabetes, hyperlipidemia, hypertension, thyroid disease Psychiatric history: anxiety, bipolar, depression - Past Surgical History Surgical History: cancer surgery, cholecystectomy, colectomy, coronary bypass ( CABG), splenectomy - Social History Smoking Status: Current every day smoker Smokeless Tobacco Status: No Alcohol use: none Drug use: none - Family History Father Adopted: [place]: Rex Family Member Ethnicity: Non- Living Status: Age at : 83 Cause of : cancer Hx Family Cardiac Disorders: No Hx Family Respiratory Disorders: No Hx Family Cancer: Yes Hx Family GI Disorders: No Hx Family Genitourinary Disorders: No Hx Family Endocrine Disorder: No Hx Family Musculoskeletal Disorders: No Hx Family Neuromuscular Disorders: No Hx Family Neurologic Disorders: No Hx Family HEENT Disorders: No Hx Family Autoimmune Disorders: No Hx Family Reproductive Disorders: No Hx Family Psychosocial Disorders: No Hx Family Medical Disorders: No Mother Adopted: [place]: Keysha Family Member Ethnicity: Non- Living Status: Still Living Hx Family Cardiac Disorders: Yes Hx Family Respiratory Disorders: Yes Hx Family Cancer: No Hx Family GI Disorders: No Hx Family Genitourinary Disorders: No Hx Family Endocrine Disorder: Yes Hx Family Musculoskeletal Disorders: No Hx Family Neuromuscular Disorders: No Hx Family Neurologic Disorders: No Hx Family HEENT Disorders: No Hx Family Autoimmune Disorders: No Hx Family Reproductive Disorders: No Hx Family Psychosocial Disorders: No Hx Family Medical Disorders: No Medications and Allergies Aspirin [Adult Low Dose Aspirin EC] 81 mg PO DAILY 10/29/15 [History] Atorvastatin [Lipitor] 40 mg PO HS 10/29/15 [History] Insulin ASPART [NovoLOG] 0 unit SQ TIDWM 10/29/15 [History] Levothyroxine [Synthroid] 175 mcg PO 0630 10/29/15 [History] Omeprazole [PriLOSEC] 40 mg PO DAILY 10/29/15 [History] Prochlorperazine Maleate [Compazine] 10 mg PO Q6HR PRN #120 tablet 11/17/15 [Rx] Insulin Degludec [Tresiba Flextouch U-100] 15 - 20 unit SQ HS 04/26/17 [History] Ropinirole HCl [Requip] 3 mg PO HS #30 tablet 07/07/17 [Rx] Lipase/Protease/Amylase [Creon Dr 6,000 Units Capsule] 4 each PO TIDWM #480 cap 07/19/17 [Rx] Ciprofloxacin HCl [Cipro] 500 mg PO BID 01/11/18 [History] HYDROcodone/Acet 10/325 mg [[place] 10-325 mg] 1 tab PO BID PRN 01/11/18 [History] Nadolol 20 mg PO DAILY 01/11/18 [History] Rifaximin [Xifaxan] 550 mg PO BID 01/11/18 [History] Sennosides/Docusate Sodium [Senna Plus] 2 tab PO HS PRN 01/11/18 [History] DiphenhydraMINE [Benadryl] 25 mg IVP Q6HR PRN vial 01/18/18 [Rx] Furosemide [Lasix] 40 mg PO BID 30 Days #60 tab 01/18/18 [Rx] Lactulose 20 gm PO BID 30 Days #60 udc 01/18/18 [Rx] Midodrine [ProAmatine] 2.5 mg PO 0800,1200,1700 30 Days #90 tablet 01/18/18 [Rx] Nicotine Patch [Nicoderm] 14 mg TD DAILY 14 Days #14 patch.td24 01/18/18 [Rx] Diclofenac Sodium [Voltaren] 50 mg PO BID #30 tablet. 02/28/18 [Rx] 3 Allergy/AdvReac Type Severity Reaction Status Date / Time metformin Allergy Unknown unknown Verified 02/28/18 18:16 morphine Allergy Unknown Unknown Verified 02/28/18 18:16 Penicillins Allergy Unknown Rash Verified 02/28/18 18:16 Review of Systems All Systems: reviewed and no additional remarkable complaints except as stated Constitutional: fatigue, malaise, weight gain Cardiovascular: dyspnea, dyspnea on exertion, leg edema, no chest pain Gastrointestinal: no diarrhea, no vomiting Neurological: no behavioral changes Exam - Vital Signs Vital signs: Initial Vital Signs Temp Pulse Resp BP Pulse Ox 98.6 F 52 17 101/55 99 04/05/18 22:00 04/05/18 22:00 04/05/18 22:00 04/05/18 22:00 04/05/18 22:00 Vital Signs - Last 8 Hours Temp Pulse Resp BP Pulse Ox 04/06/18 07:41 98.2 F 58 18 93/57 98 04/06/18 04:12 98.4 F 54 17 98/64 99 Intake and Output 04/05/18 04/06/18 04/06/18 23:59 07:59 15:59 Other: Meal pudding, jello, kar, ham sandwich, goldfish # Bowel Movements 1 Weight 104.598 kg 106.6 kg Blood Glucose* 114 Patient Weight 04/06/18 23:59 Weight 106.6 kg - General Appearance General appearance: well-developed, well-nourished EENT: ATNC, mucous membranes moist, hearing intact, vision intact Neck: supple Respiratory: clear (decreased; SOB jesus with talking) Cardiology: edema, normal S1, normal S2 Gastrointestinal: no tenderness, no guarding Integumentary: warm and dry Neurologic: alert and oriented x3 Psychiatric: mood/affect appropriate, cooperative Results - Lab Results 04/06/18 00:21 04/06/18 00:21 Most recent lab results Calcium 7.9 mg/dL (8.6-10.3) L 04/06/18 00:21 Phosphorus 6.8 mg/dL (2.7-4.5) H 04/06/18 00:21 Magnesium 1.7 mg/dL (1.6-2.6) 04/06/18 00:21
--- NOTE | 2018-04-06 08:54 | Internal Med Progress Note ---
Date of Encounter: 04/06/18 Time of Encounter: 08:50 - Assessment and plan (1) Acute congestive heart failure Current Visit: Yes Status: Acute Assessment and plan: SOB at rest progressed for the last 2 days. Most likley due to CHF exacerbation but contributing factors could include yony on ckd, cirrhosis. Patient has known hx of CHF, and patient has been out of home lasix for 2 days. Last echo 01/2018 LVEF 60-65%, HFpEF. Patient has clinical signs of CHF exacerbation w/ SOB at rest, PND, orthopnea, bilateral leg edema. Will treat yony on ckd as fluid overload treatment with diuretics. Will evaluate for ascites. - continue lasix IV BID - monitor weight and I/O - cardiac diet, diabetic diet; fluid restriction 1.5L and Na 2g - abdominal U/S for fluid evaluation; possible paracentesis - continue home lactulose, rifaxamin, cipro, midodrine - avoid nephrotoxins and renal dose medications Qualifiers: Heart failure type: diastolic Qualified Code(s): I50.31 - Acute diastolic ( congestive) heart failure (2) Cirrhosis Current Visit: Yes Status: Acute Assessment and plan: sObtain ultrasound to assess for ascites. F/U and obtain paracentesis if indicated Qualifiers: Hepatic cirrhosis type: unspecified hepatic cirrhosis Ascites presence: with ascites Qualified Code(s): K74.60 - Unspecified cirrhosis of liver; R18.8 - Other ascites (3) Pancreas cancer Current Visit: Yes Status: Chronic Assessment and plan: s/p whipple procedure. Ordered lipase. continue home enzyme replacement Qualifiers: Pancreatic malignancy location: unspecified Qualified Code(s): C25.9 - Malignant neoplasm of pancreas, unspecified (4) Uncontrolled diabetes mellitus Current Visit: Yes Status: Acute Assessment and plan: poorly controlled diabetes. hold home rx, will put on medium SSI Qualifiers: Diabetes mellitus type: type 2 Qualified Code(s): E11.65 - Type 2 diabetes mellitus with hyperglycemia (5) Hyperkalemia Current Visit: Yes Status: Acute Assessment and plan: Potassium came down to 5.6. Continue lasix. Will give one dose of kayexalate (6) DVT prophylaxis Current Visit: Yes Status: Acute Assessment and plan: sq heparin (7) Chronic kidney disease (CKD), stage III (moderate) Current Visit: Yes Status: Chronic Assessment and plan: see above (8) Anemia Current Visit: Yes Status: Acute Assessment and plan: hgb 7.7 at car. Reordered hgb, follow replacement protocol Qualifiers: Anemia type: unspecified type Qualified Code(s): D64.9 - Anemia, unspecified (9) Acute on chronic kidney failure Current Visit: Yes Status: Acute Assessment and plan: [facility] baseline Cr ~2, will reorder labs. Patient is currently fluid overloaded will treat with lasix. Qualifiers: Qualified Code(s): N17.9 - Acute kidney failure, unspecified; N18.9 - Chronic kidney disease, unspecified (10) Goals of care, counseling/discussion Current Visit: Yes Status: Acute Assessment and plan: Discussed with patient goals of care. Patient requests to not be resuscitated in the setting of cardiac or resp arrest. Patient's PoA default is . Code Status DNR/DNI/CCA (11) Shortness of breath at rest Current Visit: Yes Status: Acute Assessment and plan: SOB at rest progressed for the last 2 days. Most likley due to CHF exacerbation but contributing factors could include yony on ckd, cirrhosis. Patient has known hx of CHF, and patient has been out of home lasix for 2 days. Last echo 01/2018 LVEF 60-65%, HFpEF. Patient has clinical signs of CHF exacerbation w/ SOB at rest, PND, orthopnea, bilateral leg edema. Will treat yony on ckd as fluid overload treatment with diuretics. Will evaluate for ascites. Patient was not on ACEI on admission, will need prescription upon discharge. - started IV lasix - beta carl - O2 support only if SpO2 <92% - Positionally prop patient - tele monitoring - monitor weight and I/O - cardiac diet, diabetic diet; fluid restriction 1.5L and Na 2g - abdominal U/S for fluid evaluation; possible paracentesis - continue home lactulose, rifaxamin, midodrine - avoid nephrotoxins and renal dose medications - hold cipro (12) (HFpEF) heart failure with preserved ejection fraction Current Visit: Yes Status: Acute Assessment and plan: see above (13) Hypothyroid Current Visit: Yes Status: Acute Qualifiers: Qualified Code(s): E03.9 - Hypothyroidism, unspecified (14) Scrotal edema Current Visit: Yes Status: Acute Assessment and plan: Possibly 2/2 to acute CHF but patient also complains of pain, Will obtain urology evaluation - Time Spent With Patient Total time spent is greater than 50% in coordination of care (as documented) at patient's floor/unit and/or counseling patient: - Subjective Interval history: No acute events overnight - Constitutional Vitals: Temp Pulse Resp BP Pulse Ox 98.2 F 58 18 93/57 98 04/06/18 07:41 04/06/18 07:41 04/06/18 07:41 04/06/18 07:41 04/06/18 07:41 General appearance: Present: cooperative, A&O X 3, pleasant, answers questions appropriately - Head Head exam: Present: atraumatic, normocephalic - Eye Eye exam: Present: PERRL, conjuntiva pink, sclera anicteric Pupils: Present: PERRL - Neck Neck exam general surgery: Present: supple, trachea midline. Absent: lymphadenopathy - Respiratory Respiratory exam: Present: CTAB. Absent: accessory muscle use, rales, rhonchi, wheezes - Cardiovascular Cardiovascular exam: Present: RRR, +S1, +S2. Absent: diastolic murmur, gallop, rubs, systolic murmur - GI/Abdominal GI/Abdominal exam: Present: normal bowel sounds, soft, no peritoneal signs. Absent: distended, tenderness - Extremities Exam Extremities exam: Present: warm, radial pulses palpable and symmetrical. Absent : calf tenderness, cyanotic, pedal edema - Neurological Exam Neurological exam: Present: CN II-XII intact, oriented X3, no focal deficits. Absent: pronater drift, facial droop, speech deficit - Skin Skin exam: Present: dry, intact Internal Medicine: Result - Labs CBC & Chem 7: 04/06/18 00:21 04/06/18 00:21 Labs: Short CBC 04/06/18 Range/Units 00:21 WBC 7.0 (4.3-11.1) K/mcL Hgb 7.8 L (12.9-16.9) g/dL Hct 22.1 L (37.5-50.1) % Plt Count 72 L (140-400) K/mcL Neutrophils # 3.5 (1.6-8.9) K/mcL BMP 04/06/18 00:21 Sodium 133 L Potassium 5.6 H Chloride 110 H Carbon Dioxide 18 L BUN 28 H Creatinine 3.53 H Glucose 125 H Calcium 7.9 L Cardiac Enzymes 04/06/18 04/06/18 Range/Units 00:21 06:08 Troponin I < 0.03 < 0.03 (< 0.04) ng/mL Liver Function 04/06/18 Range/Units 00:21 Total Bilirubin 2.1 H (0.3-1.0) mg/dL AST 57 H (13-39) Units/L ALT 20 (7-52) Units/L Alkaline Phosphatase 171 H (34-104) Units/L Albumin 2.1 L (3.5-5.7) g/dL - ABG Interpretation ABG results: PT/INR, D-dimer PT 28.5 Seconds (9.4-12.1) H 04/06/18 00:21 Consult Discharge Plan - Plan Referrals: NONE,PCP [Primary Care Provider] -
[2018-04-06] MEDS ORDERED: (Rifaximin [Xifaxan] 550 MG) PO SCH (09:00)
[2018-04-06] MEDS ORDERED: Furosemide 40 MG/4 ML VIAL IVP SCH (09:00)
[2018-04-06] MEDS ORDERED: Pantoprazole 40 MG VIAL IVP SCH (09:00)
[2018-04-06] MEDS: Lactulose Oral Soln 20 GM/30 ML UDC PO SCH ×2 (09:16→20:44)
[2018-04-06] MEDS: Insulin LISPRO 300 UNITS/3 ML VIAL SQ SCH ×4 (09:16→20:41)
[2018-04-06] MEDS: Nicotine 14 MG PATCH.TD24 TD SCH (09:17)
[2018-04-06] MEDS: Aspirin Enteric Coated 81 MG Tablet PO SCH (09:18)
[2018-04-06] MEDS: Furosemide 40 MG/4 ML VIAL IVP SCH ×2 (09:32→16:55)
[2018-04-06 12:37] LABS: Uric Acid 9.4 mg/dL (2.3-7.6)
[2018-04-06] MEDS: *HR* HYDROcodone/Acet 10/325 mg TABLET PO PRN (14:55)
--- NOTE | 2018-04-06 16:52 | Urology - Consult Note ---
Date of Encounter: 04/06/18 Time of Encounter: 16:50 - Assessment and Plan (1) Scrotal edema Current Visit: Yes Status: Acute Assessment and plan: I personally reviewed the ultrasound images. It appears there is no significant testicular pathology for obvious cause of his discomfort. The hydrocele is subclinical. He has massive scrotal wall edema which is related to his overall fluid overload and edema. This could be causing some of his discomfort and aggressive diuresis may help with his pain. Other than that there is no urologic intervention that would benefit him at this time. We discussed that a catheter could help with diuresis but he again states he does not desire a catheter if at all possible. In addition, the patient seems to have chronic pain issues which indicates that the scrotal discomfort that he is describing may not be related to a urologic condition. Keep scrotum elevated if possible as this may also help with reduction of the scrotal edema. Review of prior CT scan and recent ultrasound demonstrates bilateral partial staghorn calculi. They do not appear to be obstructing. Although these could contribute to some flank discomfort I do not feel they are clinically significant at this time. His significant comorbidities are unlikely to allow surgical management of the stones and less he improved greatly. Please reconsult urology for any new issues.. Urology CN:HPI Consult date: 04/06/18 History of present illness: 53-year-old male with a multitude of medical issues including stage 0 pancreatic cancer status post Whipple at an outside facility. He also has cirrhosis and significant acute on chronic renal insufficiency. Large edema. Chronic pain issues. He complains of worsening scrotal discomfort which is the reason for the consult. States it is a throbbing ache generalized to his scrotum. He is had issues with pelvic discomfort in the past. Denies any trauma to the area. Denies any previous problems with his testicles. He does have significant hesitancy and difficulty voiding but is adamant that he does not want a catheter. Past Med Surg Social Fam HX - Past Medical History Medical history: cancer, cirrhosis, CHF, coronary artery disease, diabetes, hyperlipidemia, hypertension, thyroid disease Psychiatric history: anxiety, bipolar, depression - Past Surgical History Surgical History: cancer surgery, cholecystectomy, colectomy, coronary bypass ( CABG), splenectomy - Social History Smoking Status: Current every day smoker Smokeless Tobacco Status: No Alcohol use: none Drug use: none - Family History Father Adopted: [place]: Rex Family Member Ethnicity: Non- Living Status: Age at : 83 Cause of : cancer Hx Family Cardiac Disorders: No Hx Family Respiratory Disorders: No Hx Family Cancer: Yes Hx Family GI Disorders: No Hx Family Genitourinary Disorders: No Hx Family Endocrine Disorder: No Hx Family Musculoskeletal Disorders: No Hx Family Neuromuscular Disorders: No Hx Family Neurologic Disorders: No Hx Family HEENT Disorders: No Hx Family Autoimmune Disorders: No Hx Family Reproductive Disorders: No Hx Family Psychosocial Disorders: No Hx Family Medical Disorders: No Mother Adopted: [place]: Keysha Family Member Ethnicity: Non- Living Status: Still Living Hx Family Cardiac Disorders: Yes Hx Family Respiratory Disorders: Yes Hx Family Cancer: No Hx Family GI Disorders: No Hx Family Genitourinary Disorders: No Hx Family Endocrine Disorder: Yes Hx Family Musculoskeletal Disorders: No Hx Family Neuromuscular Disorders: No Hx Family Neurologic Disorders: No Hx Family HEENT Disorders: No Hx Family Autoimmune Disorders: No Hx Family Reproductive Disorders: No Hx Family Psychosocial Disorders: No Hx Family Medical Disorders: No Medications and Allergies Aspirin [Adult Low Dose Aspirin EC] 81 mg PO DAILY 10/29/15 [History] Atorvastatin [Lipitor] 40 mg PO HS 10/29/15 [History] Insulin ASPART [NovoLOG] 0 unit SQ TIDWM 10/29/15 [History] Levothyroxine [Synthroid] 175 mcg PO 0630 10/29/15 [History] Omeprazole [PriLOSEC] 40 mg PO DAILY 10/29/15 [History] Prochlorperazine Maleate [Compazine] 10 mg PO Q6HR PRN #120 tablet 11/17/15 [Rx] Insulin Degludec [Tresiba Flextouch U-100] 15 - 20 unit SQ HS 04/26/17 [History] Ropinirole HCl [Requip] 3 mg PO HS #30 tablet 07/07/17 [Rx] Lipase/Protease/Amylase [Creon Dr 6,000 Units Capsule] 4 each PO TIDWM #480 cap 07/19/17 [Rx] Ciprofloxacin HCl [Cipro] 500 mg PO BID 01/11/18 [History] HYDROcodone/Acet 10/325 mg [[place] 10-325 mg] 1 tab PO BID PRN 01/11/18 [History] Nadolol 20 mg PO DAILY 01/11/18 [History] Rifaximin [Xifaxan] 550 mg PO BID 01/11/18 [History] Sennosides/Docusate Sodium [Senna Plus] 2 tab PO HS PRN 01/11/18 [History] DiphenhydraMINE [Benadryl] 25 mg IVP Q6HR PRN vial 01/18/18 [Rx] Furosemide [Lasix] 40 mg PO BID 30 Days #60 tab 01/18/18 [Rx] Lactulose 20 gm PO BID 30 Days #60 udc 01/18/18 [Rx] Midodrine [ProAmatine] 2.5 mg PO 0800,1200,1700 30 Days #90 tablet 01/18/18 [Rx] Nicotine Patch [Nicoderm] 14 mg TD DAILY 14 Days #14 patch.td24 01/18/18 [Rx] Diclofenac Sodium [Voltaren] 50 mg PO BID #30 tablet. 02/28/18 [Rx] 3 Allergy/AdvReac Type Severity Reaction Status Date / Time metformin Allergy Unknown unknown Verified 02/28/18 18:16 morphine Allergy Unknown Unknown Verified 02/28/18 18:16 Penicillins Allergy Unknown Rash Verified 02/28/18 18:16 Review of Systems - Constitutional fatigue, malaise, weakness - EENT Nose, mouth and throat: no dizziness - Cardiovascular dyspnea, edema, leg edema, no chest pain - Gastrointestinal abdominal pain, nausea - Genitourinary difficulty urinating - Musculoskeletal back pain - Integumentary no erythema - Neurological no confusion - Psychiatric no anxiety - Hematologic/Lymphatic no easy bleeding - Allergic/Immunologic no throat swelling Exam Initial Vital Signs Temp Pulse Resp BP Pulse Ox 98.6 F 52 17 101/55 99 04/05/18 22:00 04/05/18 22:00 04/05/18 22:00 04/05/18 22:00 04/05/18 22:00 - General physical appearance Present: no distress, chronically ill - Eyes Present: PERRL, conjunctiva is clear - ENT Present: normal nares, no hearing loss - Neck Present: no masses, trachea midline, no lymphadenopathy - Respiratory Present: normal respiratory effort - Cardiovascular Cardiovascular exam IM: RRR - Abdomen Abdomen: Present: soft, tender, suprapubic tenderness (Obese) - Genitourinary other (Large scrotal wall edema.) Penis: Present: edema (Only able to visualize the glans. Meatus appears somewhat stenosed but otherwise patent.) Testicles: Present: other (Unable to palpate either testicle secondary to massive scrotal edema) - Integumentary Present: no rash - Neurologic Absent: disoriented, confused - Additional Findings Significant pitting lower extremity edema Urology Results - Labs 04/06/18 00:21 04/06/18 00:21 Abnormal lab results RBC 2.53 M/mcL (4.19-5.50) L 04/06/18 00:21 Hgb 7.8 g/dL (12.9-16.9) L 04/06/18:21 Hct 22.1 % (37.5-50.1) L 04/06/18: RDW 21.8 % (11.5-14.5) H 04/06/18 00:21 Plt Count 72 K/mcL (140-400) L 04/06/18 00:21 Monocytes # 1.5 K/mcL (0.0-1.3) H 04/06/18 00:21 Eosinophils # 0.7 K/mcL (0.0-0.6) H 04/06/18 00:21 Nucleated RBCs/100 WBC 0.3 /100 WBC (0) H 04/06/18 00:21 Platelet Estimate Marked Decrease (Normal) L 04/06/18 00:21 Immature Plt Fraction 15.4 % (1.1-6.1) H 04/06/18 00:21 Hypochromasia Present (Not Present) A 04/06/18 00:21 Anisocytosis 2+ (Not Present) A 04/06/18 00:21 PT 28.5 Seconds (9.4-12.1) H 04/06/18 00:21 APTT 101.6 Seconds (26.0-36.0) H 04/06/18 00:21 Sodium 133 mEq/L (136-145) L 04/06/18 00:21 Potassium 5.6 mEq/L (3.5-5.1) H 04/06/18 00:21 Chloride 110 mEq/L (98-107) H 04/06/18 00:21 Carbon Dioxide 18 mEq/L (23-29) L 04/06/18 00:21 BUN 28 mg/dL (6-20) H 04/06/18 00:21 Creatinine 3.53 mg/dL (0.70-1.30) H 04/06/18 00:21 Est GFR ( Amer) 22 (> 60) L 04/06/18 00:21 Est GFR (Non-Af Amer) 18 (> 60) L 04/06/18 00:21 Glucose 125 mg/dL (70-105) H 04/06/18 00:21 POC Glucose 162 mg/dL (70-99) H 04/06/18 11:53 Uric Acid 9.4 mg/dL (2.3-7.6) H 04/06/18 12:04 Calcium 7.9 mg/dL (8.6-10.3) L 04/06/18 00:21 Phosphorus 6.8 mg/dL (2.7-4.5) H 04/06/18 00:21 Total Bilirubin 2.1 mg/dL (0.3-1.0) H 04/06/18 00:21 AST 57 Units/L (13-39) H 04/06/18 00:21 Alkaline Phosphatase 171 Units/L (34-104) H 04/06/18 00:21 Creatine Kinase 803 Units/L (30-223) H 04/06/18 12:04 Serum Total Protein 5.7 g/dL (6.4-8.9) L 04/06/18 00:21 Albumin 2.1 g/dL (3.5-5.7) L 04/06/18 00:21 Globulin 3.6 g/dL (2.4-3.5) H 04/06/18 00:21 Albumin/Globulin Ratio 0.6 (1.1-2.2) L 04/06/18 00:21 HDL Cholesterol < 3 mg/dL (40-59) L 04/06/18 00:21 Lipase < 3 Units/L (11-82) L 04/06/18 00:21 25-OH Vitamin D Total 7 ng/mL (30-80) L 04/06/18 12:04 PTH Intact 219.3 pg/ml (10.0-65.0) H 04/06/18 12:04 Stool Occult Blood Positive (Negative) A 05/24/18 14:30 Diabetes panel 04/06/18 Range/Units 00:21 Sodium 133 L (136-145) mEq/L Potassium 5.6 H (3.5-5.1) mEq/L Chloride 110 H (98-107) mEq/L Carbon Dioxide 18 L (23-29) mEq/L BUN 28 H (6-20) mg/dL Creatinine 3.53 H (0.70-1.30) mg/dL Glucose 125 H (70-105) mg/dL Calcium 7.9 L (8.6-10.3) mg/dL AST 57 H (13-39) Units/L ALT 20 (7-52) Units/L Alkaline Phosphatase 171 H (34-104) Units/L Albumin 2.1 L (3.5-5.7) g/dL Triglycerides 25 (< 150) mg/dL HDL Cholesterol < 3 L (40-59) mg/dL Thyroid panel 04/06/18 Range/Units 00:21 TSH 3.315 (0.340-5.600) mcIU/mL Calcium panel 04/06/18 04/06/18 Range/Units 00:21 12:04 Calcium 7.9 L (8.6-10.3) mg/dL Phosphorus 6.8 H (2.7-4.5) mg/dL Albumin 2.1 L (3.5-5.7) g/dL 25-OH Vitamin D Total 7 L (30-80) ng/mL Pituitary panel 04/06/18 04/06/18 Range/Units 00:21 00:21 Sodium 133 L (136-145) mEq/L Potassium 5.6 H (3.5-5.1) mEq/L Chloride 110 H (98-107) mEq/L Carbon Dioxide 18 L (23-29) mEq/L BUN 28 H (6-20) mg/dL Creatinine 3.53 H (0.70-1.30) mg/dL Glucose 125 H (70-105) mg/dL Calcium 7.9 L (8.6-10.3) mg/dL TSH 3.315 (0.340-5.600) mcIU/mL Adrenal panel 04/06/18 Range/Units 00:21 Sodium 133 L (136-145) mEq/L Potassium 5.6 H (3.5-5.1) mEq/L Chloride 110 H (98-107) mEq/L Carbon Dioxide 18 L (23-29) mEq/L BUN 28 H (6-20) mg/dL Creatinine 3.53 H (0.70-1.30) mg/dL Glucose 125 H (70-105) mg/dL Calcium 7.9 L (8.6-10.3) mg/dL Total Bilirubin 2.1 H (0.3-1.0) mg/dL AST 57 H (13-39) Units/L ALT 20 (7-52) Units/L Alkaline Phosphatase 171 H (34-104) Units/L Albumin 2.1 L (3.5-5.7) g/dL All other labs normal. Consult Discharge Plan - Plan Referrals: NONE,PCP [Primary Care Provider] -
[2018-04-06 17:21] LABS: Bilirubin,Urine Small (Negative); Blood,Urine Large (Negative); Clarity,Urine Turbid (Clear); Color,Urine Dark Yellow (Yellow); Glucose,Urine (UA) Normal (Normal); Ketones,Urine Negative (Negative); Leukocyte Esterase,Urine Large (Negative); Nitrite,Urine Negative (Negative); Protein,Urine 100 mg/dL (Neg-Trace); Specific Gravity,Urine 1.026 (1.010-1.025); Urobilinogen,Urine Normal (Normal)
[2018-04-06 17:23] LABS: Bacteria,Urine None Seen per hpf (None-Few); Squamous Epithelial Cell,Urine Many per lpf (None-Few); WBC,Urine TNTC per hpf (0-3)
[2018-04-06 17:38] LABS: Hyaline Casts,Urine Few per lpf (None-Few); RBC,Urine TNTC per hpf (0-3)
[2018-04-06 18:10] LABS: Protein/Creatinine Ratio,Urine 0.6 mg/mg (0.00-0.20); Sodium, Urine 20.6 mEq/L
[2018-04-06] MEDS: Nystatin OINT 15 GM TUBE TP SCH (20:45)
[2018-04-07 00:48] LABS: Hemoglobin 7.2 g/dL (12.9-16.9)
[2018-04-07 00:49] LABS: Basophils % 0.5 %; Eosinophils # 0.6 K/mcL (0.0-0.6); Eosinophils % 7.7 %; Hematocrit 19.6 % (37.5-50.1); Immature Granulocytes % 0.4 % (0-4); Immature Platelets 12.6 % (1.1-6.1); Lymphocytes # 1.4 K/mcL (0.6-4.6); Lymphocytes % 18.2 %; Mean Corpuscular HGB Conc 36.7 g/dL (31.6-35.5); Mean Corpuscular Hemoglobin 32.6 pg (28.0-33.3); Mean Corpuscular Volume 88.7 fL (83.0-100.0); Monocytes # 1.9 K/mcL (0.0-1.3); Monocytes % 24.3 %; Neutrophils # 3.9 K/mcL (1.6-8.9); Nucleated Red Blood Cells 0.3 /100 WBC (0); Red Blood Count 2.21 M/mcL (4.19-5.50); Red Cell Distribution Width 21.8 % (11.5-14.5); Segmented Neutrophils % 48.9 %
[2018-04-07 00:50] LABS: Platelet Count 66 K/mcL (140-400)
[2018-04-07 00:58] LABS: INR 2.7; Prothrombin Time 29.5 Seconds (9.4-12.1)
[2018-04-07] MEDS ORDERED: Furosemide 40 MG/4 ML VIAL IVP SCH ×2 (01:00→08:00)
[2018-04-07 01:06] LABS: Acanthocytes 1+ (Not Present); Anisocytosis 2+ (Not Present); Burr Cells 1+ (Not Present); Calcium 8.1 mg/dL (8.6-10.3); Hypochromasia Present (Not Present); Platelet Estimate Decreased (Normal); Potassium 6.1 mEq/L (3.5-5.1); Target Cells 1+ (Not Present)
[2018-04-07] MEDS ORDERED: *HR* FentaNYL (PF) 100 MCG/2 ML VIAL IVP ONE (02:25)
[2018-04-07] MEDS: *HR* Heparin 5,000 UNIT/ML VIAL SQ SCH ×2 (06:39→20:20)
[2018-04-07] MEDS: Insulin LISPRO 300 UNITS/3 ML VIAL SQ SCH ×4 (08:05→23:29)
[2018-04-07] MEDS: Albumin 25% 25gram/100mL 25 GM/100 ML IV.SOLN IVPB SCH ×2 (09:02→18:25)
--- NOTE | 2018-04-07 09:04 | Internal Med Progress Note ---
Date of Encounter: 04/07/18 Time of Encounter: 09:00 - Assessment and plan (1) Acute congestive heart failure Current Visit: Yes Status: Acute Assessment and plan: SOB at rest progressed for the last 2 days. Patient has known hx of CHF, and patient has been out of home lasix for 2 days. Last echo 01/2018 LVEF 60-65%, HFpEF. Patient has clinical signs of CHF exacerbation w/ SOB at rest, PND, orthopnea, bilateral leg edema. Continue on lasix IV. Dose of lasix decreased to daily 2/2 to LISA. Pt received albumin per renal recs. Qualifiers: Heart failure type: diastolic Qualified Code(s): I50.31 - Acute diastolic ( congestive) heart failure (2) Cirrhosis Current Visit: Yes Status: Acute Assessment and plan: Obtain ultrasound to assess for ascites. Ultrasound showed smalll to moderate ascites. Will continue Diuresis with lasix. Obtain GI consult for decompensated liver cirrhosis. Qualifiers: Hepatic cirrhosis type: unspecified hepatic cirrhosis Ascites presence: with ascites Qualified Code(s): K74.60 - Unspecified cirrhosis of liver; R18.8 - Other ascites (3) Pancreas cancer Current Visit: Yes Status: Chronic Assessment and plan: s/p whipple procedure. continue home enzyme replacement Qualifiers: Pancreatic malignancy location: unspecified Qualified Code(s): C25.9 - Malignant neoplasm of pancreas, unspecified (4) Uncontrolled diabetes mellitus Current Visit: Yes Status: Acute Assessment and plan: poorly controlled diabetes. hold home rx, will put on medium SSI Qualifiers: Diabetes mellitus type: type 2 Qualified Code(s): E11.65 - Type 2 diabetes mellitus with hyperglycemia (5) Hyperkalemia Current Visit: Yes Status: Acute Assessment and plan: Potassium went up to 6.1 this am. Continue lasix. Will give one dose of kayexalate today (6) DVT prophylaxis Current Visit: Yes Status: Acute Assessment and plan: sq heparin (7) Chronic kidney disease (CKD), stage III (moderate) Current Visit: Yes Status: Chronic Assessment and plan: see above (8) Anemia Current Visit: Yes Status: Acute Assessment and plan: hgb 7.7 at car. Reordered hgb, follow replacement protocol Qualifiers: Anemia type: unspecified type Qualified Code(s): D64.9 - Anemia, unspecified (9) Acute on chronic kidney failure Current Visit: Yes Status: Acute Assessment and plan: Cr worsened to 4 this am. Will decrease dose of lasix to once daily. Renal following Qualifiers: Qualified Code(s): N17.9 - Acute kidney failure, unspecified; N18.9 - Chronic kidney disease, unspecified (10) Goals of care, counseling/discussion Current Visit: Yes Status: Acute Assessment and plan: Discussed with patient goals of care. Patient requests to not be resuscitated in the setting of cardiac or resp arrest. Patient's PoA default is . Code Status DNR/DNI/CCA (11) (HFpEF) heart failure with preserved ejection fraction Current Visit: Yes Status: Acute Assessment and plan: see above (12) Hypothyroid Current Visit: Yes Status: Acute Assessment and plan: continue home levothyroxine Qualifiers: Qualified Code(s): E03.9 - Hypothyroidism, unspecified (13) Scrotal edema Current Visit: Yes Status: Acute Assessment and plan: Possibly 2/2 to acute CHF but patient also complains of pain, likely 2/2 to acute CHF, no acute intervention from urology - Time Spent With Patient Total time spent is greater than 50% in coordination of care (as documented) at patient's floor/unit and/or counseling patient: - Subjective Interval history: No acute events overnight - Constitutional Vitals: Temp Pulse Resp BP Pulse Ox 97.9 F 62 19 80/44 96 04/07/18 07:06 04/07/18 07:06 04/07/18 07:06 04/07/18 07:06 04/07/18 07:06 General appearance: Present: cooperative, A&O X 3, pleasant, answers questions appropriately - Head Head exam: Present: atraumatic, normocephalic - Eye Eye exam: Present: PERRL, conjuntiva pink, sclera anicteric Pupils: Present: PERRL - Neck Neck exam general surgery: Present: supple, trachea midline. Absent: lymphadenopathy - Respiratory Respiratory exam: Present: CTAB. Absent: accessory muscle use, rales, rhonchi, wheezes - Cardiovascular Cardiovascular exam: Present: RRR, +S1, +S2. Absent: diastolic murmur, gallop, rubs, systolic murmur - GI/Abdominal GI/Abdominal exam: Present: normal bowel sounds, soft, no peritoneal signs. Absent: distended, tenderness Additional comments: Obese abdomen with edema - Extremities Exam Extremities exam: Present: warm, radial pulses palpable and symmetrical. Absent : calf tenderness, cyanotic, pedal edema Additional comments: Has pitting edema - Neurological Exam Neurological exam: Present: CN II-XII intact, oriented X3, no focal deficits. Absent: pronater drift, facial droop, speech deficit - Skin Skin exam: Present: dry, intact Internal Medicine: Result - Labs CBC & Chem 7: 04/07/18 00:30 04/07/18 00:30 Labs: Short CBC 04/07/18 Range/Units 00:30 WBC 7.9 (4.3-11.1) K/mcL Hgb 7.2 L (12.9-16.9) g/dL Hct 19.6 L (37.5-50.1) % Plt Count 66 L (140-400) K/mcL Neutrophils # 3.9 (1.6-8.9) K/mcL BMP 04/07/18 00:30 Sodium 132 L Potassium 6.1 H Chloride 110 H Carbon Dioxide 16 L BUN 28 H Creatinine 4.04 H Glucose 123 H Calcium 8.1 L Cardiac Enzymes 04/06/18 Range/Units 12:04 Troponin I < 0.03 (< 0.04) ng/mL Urine 04/06/18 Range/Units 17:09 Urine Color Dark Yellow (Yellow) Urine Clarity Turbid A (Clear) Urine pH 5.0 (5.0-8.0) pH Units Ur Specific Watkins 1.026 H (1.010-1.025) Urine Protein 100 H (Neg-Trace) mg/dL Urine Glucose (UA) Normal (Normal) mg/dL - ABG Interpretation ABG results: PT/INR, D-dimer PT 29.5 Seconds (9.4-12.1) H 04/07/18 00:30 - Impressions Impressions Retroperitoneum Ultrasound 04/06/18 10:30 IMPRESSION: Bilateral nephrolithiasis without evidence of obstruction - correlates with prior CT and ultrasound. D/ / Robbie Hanna / Robbie Hanna Interpreting Provider: Robbie Hanna Abdomen Ultrasound 04/06/18 11:00 IMPRESSION: 1. Small to moderate four-quadrant ascites, most prominently in the right upper quadrant. 2. At least moderate size right pleural effusion. 3. Marked body wall edema. D/ / Josesito Lopez MD / Josesito Lopez MD Interpreting Provider: Josesito Lopez MD Scrotum Ultrasound 04/06/18 11:30 IMPRESSION: Diffuse scrotal edema and small right hydrocele. Normal testes and epididymides. D/ / Robbie Hanna / Robbie Hanna Interpreting Provider: Robbie Hanna Chest X-Ray 04/06/18 23:44 IMPRESSION: Mild improvement of the lung findings. Persistent CHF and bilateral pleural effusions. D/ / 04/06/2018 12:31:30 Keisha Sommers MD / mendez Interpreting Provider: Keisha Sommers MD Consult Discharge Plan - Plan Referrals: NONE,PCP [Primary Care Provider] -
[2018-04-07] MEDS: Nicotine 14 MG PATCH.TD24 TD SCH (11:30)
[2018-04-07] MEDS: Lactulose Oral Soln 20 GM/30 ML UDC PO SCH ×2 (11:36→23:45)
[2018-04-07] MEDS: Aspirin Enteric Coated 81 MG Tablet PO SCH (11:37)
[2018-04-07] MEDS: *HR* HYDROcodone/Acet 10/325 mg TABLET PO PRN (11:38)
--- NOTE | 2018-04-07 12:12 | Gastroenterology Consult Note ---
<Jericho Rodriguez - Last Filed: 04/07/18 12:08> Date of Encounter: 04/07/18 Time of Encounter: 10:10 - Assessment and plan (1) Cirrhosis Current Visit: Yes Status: Acute Assessment and plan: MELD-Na 33 and Child-Lema class C. Increase Rifaximin to 400 mg TID while inpatient and 550 mg BID while outpatient. Titrate lactulose to 2-4 BM daily. Due to CKD, consider changing Lasix to Bumex, will defer to Nephrology. Recent LVEF 60-65% on 01/12/2018, consider TIPS procedure. Check AFP and liver US. Qualifiers: Hepatic cirrhosis type: unspecified hepatic cirrhosis Ascites presence: with ascites Qualified Code(s): K74.60 - Unspecified cirrhosis of liver; R18.8 - Other ascites (2) Pancreas cancer Current Visit: Yes Status: Chronic Assessment and plan: s/p whipple procedure. Qualifiers: Pancreatic malignancy location: unspecified Qualified Code(s): C25.9 - Malignant neoplasm of pancreas, unspecified (3) Chronic kidney disease (CKD), stage III (moderate) Current Visit: Yes Status: Chronic (4) Anemia Current Visit: Yes Status: Acute Assessment and plan: Hgb 7.2 this AM, no active bleeding noted. Continue to monitor CBC and transfuse PRBC as needed. Qualifiers: Anemia type: unspecified type Qualified Code(s): D64.9 - Anemia, unspecified - Time Spent With Patient Total time spent is greater than 50% in coordination of care (as documented) at patient's floor/unit and/or counseling patient: GI History of Present Illness - Data of Consult Patient: known to practice within the last 3 years Consult date: 04/07/18 Requesting Physician: Edel Lowe - Consult Narrative Reason for consult: Decompensated liver cirrhosis History of present illness: Mr. Trimble is a 53 year old male with PMHx of pancreatic cancer s/p Whipple, cirrhosis, CAD, CKD3, DM, HLD, HTN who presented with SOB. Patient for the last month has had increased SOB on exertion, bilateral leg edema, orthopnea, and PND. The last two days patient has run out of Lasix. His SOB progressed to the point where he was having difficulty breathing at rest which lead him to go to [facility] ED and was transferred to [place]. We were consulted for his decompensated cirrhosis. Procedures: EGD 02/23/2017 Dr. Dobbins: Grade 1 varices, moderate portal HTN gastropathy, small hiatal hernia. Colonoscopy 02/23/2017 Dr. Dobbins: Tubular adenoma/hyperplastic polyps, poor colon prep, internal hemorrhoids. Repeat Cscope 6 months with 2 days prep. NSAIDs: ASA Anticoagulation: None Past Med Surg Social Fam HX - Past Medical History Medical history: cancer, cirrhosis, CHF, coronary artery disease, diabetes, hyperlipidemia, hypertension, thyroid disease Psychiatric history: anxiety, bipolar, depression - Past Surgical History Surgical History: cancer surgery, cholecystectomy, colectomy, coronary bypass ( CABG), splenectomy - Social History Smoking Status: Current every day smoker Smokeless Tobacco Status: No Alcohol use: none Drug use: none - Family History Father Adopted: [place]: [place] Family Member Ethnicity: Non- Living Status: Age at : 83 Cause of : cancer Hx Family Cardiac Disorders: No Hx Family Respiratory Disorders: No Hx Family Cancer: Yes Hx Family GI Disorders: No Hx Family Genitourinary Disorders: No Hx Family Endocrine Disorder: No Hx Family Musculoskeletal Disorders: No Hx Family Neuromuscular Disorders: No Hx Family Neurologic Disorders: No Hx Family HEENT Disorders: No Hx Family Autoimmune Disorders: No Hx Family Reproductive Disorders: No Hx Family Psychosocial Disorders: No Hx Family Medical Disorders: No Mother Adopted: [place]: Keysha Family Member Ethnicity: Non- Living Status: Still Living Hx Family Cardiac Disorders: Yes Hx Family Respiratory Disorders: Yes Hx Family Cancer: No Hx Family GI Disorders: No Hx Family Genitourinary Disorders: No Hx Family Endocrine Disorder: Yes Hx Family Musculoskeletal Disorders: No Hx Family Neuromuscular Disorders: No Hx Family Neurologic Disorders: No Hx Family HEENT Disorders: No Hx Family Autoimmune Disorders: No Hx Family Reproductive Disorders: No Hx Family Psychosocial Disorders: No Hx Family Medical Disorders: No - Gastrointestinal Gastrointestinal: Present: as per HPI - Constitutional Constitutional: as per HPI - EENT Eyes: as per HPI Ears: Present: as per HPI Nose, mouth and throat: Present: as per HPI - Cardiovascular Cardiovascular ROS: Present: as per HPI - Respiratory Respiratory IM: Present: as per HPI - Genitourinary Genitourinary: Absent: change in color, Urinary frequency - Neurological ROS Neurological GI: Present: as per HPI - Hematologic/Lymphatic Hematologic/Lymphatic pediatric: Present: as per HPI - Musculoskeletal Musculoskeletal ROS GI: Present: as per HPI - Integumentary Integumentary GI: Present: as per HPI - Psychiatric ROS Psychiatric GI: Present: as per HPI - Endocrine Endocrine IM: Present: as per HPI - Constitutional Vitals: Temp Pulse Resp BP Pulse Ox 97.6 F 62 18 85/50 98 04/07/18 10:39 04/07/18 10:39 04/07/18 10:39 04/07/18 10:39 04/07/18 10:39 General appearance: Present: cooperative, A&O X 3, no acute distress, answers questions appropriately - Head Head exam: Present: atraumatic, normocephalic - Eye Eye exam: Present: normal appearance, sclera anicteric - ENT ENT exam: Present: mucous membranes moist - Neck Neck exam general surgery: Present: normal inspection, trachea midline - Respiratory Respiratory exam: Present: CTAB. Absent: rales, rhonchi - Cardiovascular Cardiovascular exam: Present: RRR, +S1, +S2 - GI/Abdominal GI/Abdominal exam: Present: soft, no peritoneal signs. Absent: distended, firm , guarding, tenderness - Rectal Rectal exam: Present: deferred - Extremities Exam Extremities exam: Present: warm - Neurological Exam Neurological exam: Present: no focal deficits - Psychiatric Psychiatric exam: Present: normal affect, normal mood - Skin Skin exam: Present: dry, intact, normal color, warm Results - Labs CBC & Chem 7: 04/07/18 00:30 04/07/18 00:30 Labs: Last Result Calcium 8.1 mg/dL (8.6-10.3) L 04/07/18 00:30 Troponin I < 0.03 ng/mL (< 0.04) 04/06/18 12:04 Triglycerides 25 mg/dL (< 150) 04/06/18 00:21 Stool Occult Blood Positive (Negative) A 04/06/18 14:30 Entire Visit Hgb 7.2 g/dL (12.9-16.9) L 04/07/18 00:30 Hct 19.6 % (37.5-50.1) L 04/07/18 00:30 PT 29.5 Seconds (9.4-12.1) H 04/07/18 00:30 Total Bilirubin 2.1 mg/dL (0.3-1.0) H 04/06/18 00:21 AST 57 Units/L (13-39) H 04/06/18 00:21 ALT 20 Units/L (7-52) 04/06/18 00:21 Lipase < 3 Units/L (11-82) L 04/06/18 00:21 - ABG ABG results: PT/INR, D-dimer PT 29.5 Seconds (9.4-12.1) H 04/07/18 00:30 - Impressions Impressions Chest X-Ray 04/06/18 23:44 IMPRESSION: Mild improvement of the lung findings. Persistent CHF and bilateral pleural effusions. D/ /06/2018 12:31:30 Keisha Sommers MD / mendez Interpreting Provider: Keisha Sommers MD Consult Discharge Plan - Plan Referrals: NONE,PCP [Primary Care Provider] - <Ryan Dobbins - Last Filed: 04/07/18 20:05> Date of Encounter: 04/07/18 Time of Encounter: 14:00 - Time Spent With Patient Total time spent is greater than 50% in coordination of care (as documented) at patient's floor/unit and/or counseling patient: GI History of Present Illness - Data of Consult Requesting Physician: Edel Lowe - Consult Narrative History of present illness: Mr. Trimble is a 53 year old male - Constitutional Vitals: Temp Pulse Resp BP Pulse Ox 97.5 F L 58 18 84/46 92 04/07/18 18:36 04/07/18 18:36 04/07/18 18:36 04/07/18 18:36 04/07/18 18:36 Results - Labs CBC & Chem 7: 04/07/18 00:30 04/07/18 00:30 Labs: Last Result Calcium 8.1 mg/dL (8.6-10.3) L 04/07/18 00:30 Troponin I < 0.03 ng/mL (< 0.04) 04/06/18 12:04 Triglycerides 25 mg/dL (< 150) 04/06/18 00:21 Stool Occult Blood Positive (Negative) A 04/06/18 14:30 Entire Visit Hgb 7.2 g/dL (12.9-16.9) L 04/07/18 00:30 Hct 19.6 % (37.5-50.1) L 04/07/18 00:30 PT 29.5 Seconds (9.4-12.1) H 04/07/18 00:30 Total Bilirubin 2.1 mg/dL (0.3-1.0) H 04/06/18 00:21 AST 57 Units/L (13-39) H 04/06/18 00:21 ALT 20 Units/L (7-52) 04/06/18 00:21 Lipase < 3 Units/L (11-82) L 04/06/18 00:21 - ABG ABG results: PT/INR, D-dimer PT 29.5 Seconds (9.4-12.1) H 04/07/18 00:30 - Impressions Impressions Chest X-Ray 04/06/18 23:44 IMPRESSION: Mild improvement of the lung findings. Persistent CHF and bilateral pleural effusions. D/ / 04/06/2018 12:31:30 Keisha Sommers MD / [facility] Interpreting Provider: Keisha Sommers MD - Attending Attestation I have personally performed a face to face evaluation on this patient. I have reviewed and agree with the care plan. History and Exam by me shows: Pt seen. Has multiple comorbidities, including ESLD and CKD now with HRS. MELD- NA score 33.[place] of such a high MELD score not a candidate for TIPS. Add octreotide and adjust midodrine as tolerated. Diuretics management per nephrology. Prognosis poor
--- NOTE | 2018-04-07 12:40 | Palliative - Consult Note ---
Date of Encounter: 04/07/18 Time of Encounter: 09:40 - Assessment and Plan (1) Testicular/scrotal pain Current Visit: Yes Status: Acute Assessment and plan: Patient has taken 1 dose of Helen in the last 24 hours. Patient rates pain a 10/ 10, encouraged to take PRN pain medication for comfort. (2) Abdominal pain Current Visit: Yes Status: Acute Assessment and plan: Patient having increased abdominal pain, rated a 10/10. Patient reports pain due to swelling. Gastroenterology following; discussing possible TIPS procedure. Will increase frequency for pain medication for comfort. Qualifiers: Abdominal location: generalized Qualified Code(s): R10.84 - Generalized abdominal pain (3) Acute kidney injury Current Visit: No Status: Resolved Assessment and plan: BUN 28, Cr 4.04, and GFR 16. Nephrology consulted. (4) Ascites Current Visit: No Status: Chronic Assessment and plan: Gastroenterology consulted for management of ascites. Qualifiers: Ascites type: other type Qualified Code(s): R18.8 - Other ascites (5) Cirrhosis Current Visit: Yes Status: Acute Qualifiers: Hepatic cirrhosis type: unspecified hepatic cirrhosis Ascites presence: with ascites Qualified Code(s): K74.60 - Unspecified cirrhosis of liver; R18.8 - Other ascites (6) Chronic kidney disease (CKD), stage III (moderate) Current Visit: Yes Status: Chronic (7) Goals of care, counseling/discussion Current Visit: Yes Status: Acute Assessment and plan: Spoke with patient and patient's daughter regarding goals of care. Patient and daughter agreed would consider hospice care; however, feel they need to speak with patient's . Patient requested this lead technical writer call patient's and discuss goals of care. 1030: Called and spoke with patient's regarding goals of care. Patient's agreed to have patient come home with [facility] today, pending evaluation from Gastroenterology to see if patient candidate for pleurx drain. Spoke with Dr. Oliveros and received report that there is a concern there may not be enough fluid for paracentesis or pleurx. Reiterated concern to over amount of fluid. Spoke with [facility], Yi, whom agreed to have patient return for pleurx drain outpatient if needed. 1130: Returned to patient's room to discuss goals of care. Patient reports he has changed his mind and wishes to continue aggressive treatment of shortness of breath and swelling over the weekend. Discussed CODE STATUS; patient confirmed code status to be kept DNR CCA/DNI. Patient desires to readdress discharge plans on Tuesday and consider home with hospice once he is feeling the best he can. Notified [facility] [facility] of change of plan for discharge to Tuesday, spoke with Aisha Marks. Also called back to speak with who is agreeable for patient to come home Tuesday with Hospice if patient continues to desire Hospice services. DME needs include: Oxygen, Wheelchair, Walker, Bed, and Table. Kelsie Trimble () [phone] There is no palliative care coverage this weekend. Palliative Care team will follow up on Tuesday. (8) Shortness of breath at rest Current Visit: Yes Status: Acute Assessment and plan: Patient's oxygen saturation 96% on 3L. Continue oxygen therapy. (9) (HFpEF) heart failure with preserved ejection fraction Current Visit: Yes Status: Acute (10) Scrotal edema Current Visit: Yes Status: Acute Assessment and plan: Patient noted to have severe scrotal edema and skin break down to groin area. Will order ointment for groin area. Palliative-CN HPI - Data of Consult Patient: new to practice Consult date: 04/07/18 Requesting Physician: Edel Lowe Primary Care Provider: PCP NONE - Consult Narrative Palliative Care/Comfort Measures: Palliative care Reason for consult: End stage Renal/CHF History of present illness: Mr. Trimble is a 53 year old male Arrived to [place] as transfer from [facility] ED on 04/05/18. Patient presented to ED for complaints of shortness of breath and a 20 pound weight gain over the previous month. Patient admitted for: Shortness of breath, Acute CHF, Acute on Chronic kidney failure, CKD stage 3, Anemia, Cirrhosis, s/p whipple procedure pancreas cnacner, Uncontrolled DM, HFpEF, Hypothyroid, GERD, and Hyperkalemia. PMH: Cancer, cirrhosis, CHF, CAD, DM, Hyperlipidemia, Hypertension, Thyroid disease, anxiety, depression, and bipolar. Nephrology consult: LISA workup, strict I&O, Rental diet, IV Lasix. Primary team managing illness; ordered diabetic/cardiac diet with fluid restriction, avoid nephrotoxins and renal dose meds, abdominal ultrasound for possible paracentesis. Retroperitoneal ultrasound performed: Bilateral nephrolithiasis without evidence of obstruction. Abdominal ultrasound; showing: Small to moderate four-quadrant ascites, most prominently in the right upper quadrant; At least moderate size right pleural effusion; and Marked body wall edema. Scrotal ultrasound showing: Diffuse scrotal edema and small right hydrocele and Normal testes and epididymides. Urology consult: offered vu; refused. Repeat Chest xray performed, showing: mild improvement of lungs and persistent CHF with bilateral pleural effusions. Gastroenterology consultation, recommend to consider TIPS procedure. Palliative care consult regarding goals of care. Upon arrival to room, patient alert with patients daughter, daughters 2 children, and daughters significant other present at bedside. Patient on the phone with his . Patient lives at home with his . Daughter lives next door. Family provides care to patient at home already; expressed desire to bring him back home. Patient's is unable to visit him in the hospital as she had knee surgery and having complications from surgery. Patient reports his is his decision make if he is unable to. Patient denies nausea and vomiting upon assessment. Rates pain in abdomen and scrotum a 10/10 with increase of pain with palpation of abdomen and denies any real alleviation of pain. Patient has received 1 dose of Helen in the last 24 hours; will notify nurse to bring dose. Patient reports increased dyspnea because of all the fluid. Patient is alert and oriented times three; able to follow commands and express desired needs. CC: Edel Lowe Past Med Surg Social Fam HX - Past Medical History Medical history: cancer, cirrhosis, CHF, coronary artery disease, diabetes, hyperlipidemia, hypertension, thyroid disease Psychiatric history: anxiety, bipolar, depression - Past Surgical History Surgical History: cancer surgery, cholecystectomy, colectomy, coronary bypass ( CABG), splenectomy - Social History Smoking Status: Current every day smoker Smokeless Tobacco Status: No Alcohol use: none Drug use: none - Family History Father Adopted: [place]: [place] Family Member Ethnicity: Non- Living Status: Age at : 83 Cause of : cancer Hx Family Cardiac Disorders: No Hx Family Respiratory Disorders: No Hx Family Cancer: Yes Hx Family GI Disorders: No Hx Family Genitourinary Disorders: No Hx Family Endocrine Disorder: No Hx Family Musculoskeletal Disorders: No Hx Family Neuromuscular Disorders: No Hx Family Neurologic Disorders: No Hx Family HEENT Disorders: No Hx Family Autoimmune Disorders: No Hx Family Reproductive Disorders: No Hx Family Psychosocial Disorders: No Hx Family Medical Disorders: No Mother Adopted: [place]: [place] Family Member Ethnicity: Non- Living Status: Still Living Hx Family Cardiac Disorders: Yes Hx Family Respiratory Disorders: Yes Hx Family Cancer: No Hx Family GI Disorders: No Hx Family Genitourinary Disorders: No Hx Family Endocrine Disorder: Yes Hx Family Musculoskeletal Disorders: No Hx Family Neuromuscular Disorders: No Hx Family Neurologic Disorders: No Hx Family HEENT Disorders: No Hx Family Autoimmune Disorders: No Hx Family Reproductive Disorders: No Hx Family Psychosocial Disorders: No Hx Family Medical Disorders: No Medications and Allergies Aspirin [Adult Low Dose Aspirin EC] 81 mg PO DAILY 10/29/15 [History] Atorvastatin [Lipitor] 40 mg PO HS 10/29/15 [History] Insulin ASPART [NovoLOG] 0 unit SQ TIDWM 10/29/15 [History] Levothyroxine [Synthroid] 175 mcg PO 0630 10/29/15 [History] Omeprazole [PriLOSEC] 40 mg PO DAILY 10/29/15 [History] Prochlorperazine Maleate [Compazine] 10 mg PO Q6HR PRN #120 tablet 11/17/15 [Rx] Insulin Degludec [Tresiba Flextouch U-100] 15 - 20 unit SQ HS 04/26/17 [History] Ropinirole HCl [Requip] 3 mg PO HS #30 tablet 07/07/17 [Rx] Lipase/Protease/Amylase [Creon Dr 6,000 Units Capsule] 4 each PO TIDWM #480 cap 07/19/17 [Rx] Ciprofloxacin HCl [Cipro] 500 mg PO BID 01/11/18 [History] HYDROcodone/Acet 10/325 mg [Helen 10-325 mg] 1 tab PO BID PRN 01/11/18 [History] Nadolol 20 mg PO DAILY 01/11/18 [History] Rifaximin [Xifaxan] 550 mg PO BID 01/11/18 [History] Sennosides/Docusate Sodium [Senna Plus] 2 tab PO HS PRN 01/11/18 [History] DiphenhydraMINE [Benadryl] 25 mg IVP Q6HR PRN vial 01/18/18 [Rx] Furosemide [Lasix] 40 mg PO BID 30 Days #60 tab 01/18/18 [Rx] Lactulose 20 gm PO BID 30 Days #60 udc 01/18/18 [Rx] Midodrine [ProAmatine] 2.5 mg PO 0800,1200,1700 30 Days #90 tablet 01/18/18 [Rx] Nicotine Patch [Nicoderm] 14 mg TD DAILY 14 Days #14 patch.td24 01/18/18 [Rx] Diclofenac Sodium [Voltaren] 50 mg PO BID #30 tablet. 02/28/18 [Rx] 3 Allergy/AdvReac Type Severity Reaction Status Date / Time metformin Allergy Unknown unknown Verified 02/28/18 18:16 morphine Allergy Unknown Unknown Verified 02/28/18 18:16 Penicillins Allergy Unknown Rash Verified 02/28/18 18:16 - Constitutional Constitutional ROS PAL: no decreased appetite, no fever(s), no frequent falls - Cardiovascular Cardiovascular ROS: dyspnea on exertion, edema, leg edema, pedal edema - Respiratory Respiratory: dyspnea, dyspnea on exertion, no cough - Gastrointestinal Gastrointestinal: abdominal pain, bloating - Genitourinary Genitourinary ROS male: difficulty urinating, other (Scrotal edema/pain) - Integumentary ROS Integumentary: sores, wounds - Neurological Neurological ROS: lack of coordination - Psychiatric Psychiatric general PM: anxiety Palliative Care-Exam - Constitutional Vitals: Temp Pulse Resp BP Pulse Ox 97.6 F 62 18 85/50 98 04/07/18 10:39 04/07/18 10:39 04/07/18 10:39 04/07/18 10:39 04/07/18 10:39 General appearance: Present: cooperative, morbidly obese - Head Head Exam: Present: normal inspection - Eye Eye exam: Present: EOMI, PERRL. Absent: periorbital swelling, periorbital tenderness Pupils: Present: normal accommodation, PERRL - ENT ENT exam: Present: mucous membranes moist, normal oropharynx - Expanded ENT Exam Mouth Exam: Absent: drooling - Neck Neck exam: Present: full ROM, normal inspection. Absent: tenderness - Respiratory Respiratory exam: Present: accessory muscle use, rales. Absent: respiratory distress - Cardiovascular Cardiovascular exam: Present: RRR, +S1, +S2 - Expanded Cardiovascular Exam Peripheral pulses: 1+: Radial (L), Radial (R), Posterior Tibialis (L), Posterior Tibialis (R), Dorsalis Pedis (L) PM, Dorsalis Pedis (R) PM - GI/Abdominal Exam GI/Abdominal exam: Present: firm, normal bowel sounds, tenderness - Expanded GI/Abdominal Exam GI/Abdominal exam: Present: ascites - Rectal Rectal Exam: Present: deferred - exam: Present: circumcision, scrotal swelling, testicular tenderness. Absent : urethral discharge External exam: Absent: normal external exam - Extremities Exam Extremities exam: Present: calf tenderness, pedal edema, tenderness - Neurological Exam Neurological exam: Present: alert, oriented X3. Absent: altered - Expanded Neurological Exam Patient oriented to: Present: person, place, time Coma Scale Eye Opening: Spontaneous Coma Scale Motor Response: Obeys Commands Coma Scale Verbal Response: Oriented Coma Scale Total: 15 - Psychiatric Psychiatric exam: Present: normal affect, normal mood Internal Medicine - CN: Reslt - Labs CBC & Chem 7: 04/07/18 00:30 04/07/18 00:30 Labs: Short CBC 04/07/18 Range/Units 00:30 WBC 7.9 (4.3-11.1) K/mcL Hgb 7.2 L (12.9-16.9) g/dL Hct 19.6 L (37.5-50.1) % Plt Count 66 L (140-400) K/mcL Neutrophils # 3.9 (1.6-8.9) K/mcL BMP 04/07/18 00:30 Sodium 132 L Potassium 6.1 H Chloride 110 H Carbon Dioxide 16 L BUN 28 H Creatinine 4.04 H Glucose 123 H Calcium 8.1 L Cardiac Enzymes 04/06/18 Range/Units 12:04 Troponin I < 0.03 (< 0.04) ng/mL Urine 04/06/18 Range/Units 17:09 Urine Color Dark Yellow (Yellow) Urine Clarity Turbid A (Clear) Urine pH 5.0 (5.0-8.0) pH Units Ur Specific [place] 1.026 H (1.010-1.025) Urine Protein 100 H (Neg-Trace) mg/dL Urine Glucose (UA) Normal (Normal) mg/dL - ABG Interpretation ABG results: PT/INR, D-dimer PT 29.5 Seconds (9.4-12.1) H 04/07/18 00:30 - Impressions Impressions Chest X-Ray 04/06/18 23:44 IMPRESSION: Mild improvement of the lung findings. Persistent CHF and bilateral pleural effusions. D/ /06/2018 12:31:30 Keisha Sommers MD / mendez Interpreting Provider: Keisha Sommers MD Consult Discharge Plan - Plan Referrals: NONE,PCP [Primary Care Provider] - Palliative Quality Palliative Quality: Screen for Code Status: Yes, Screen for Goals of Care: Yes, Screen for Pain: Yes, If Pain Regimen Started, Initiate Bowel Regimen: Yes ( Already ordered.), Screen for Nausea/Vomitting: Yes Code Status: 04/05/18 23:37 Resuscitation Status: Active [RES] Routine Comment: Resuscitation Status: [id number]
[2018-04-07] MEDS ORDERED: *HR* HYDROcodone/Acet 10/325 mg TABLET PO PRN (13:01)
[2018-04-07] MEDS ORDERED: 0.9 % Sodium Chloride 250 ML IVC PRN (15:09)
[2018-04-07] MEDS ORDERED: *HR* Heparin 10,000 UNIT/10 ML VIAL IV PRN (15:09)
[2018-04-07] MEDS ORDERED: 0.9 % Sodium Chloride 1,000 ML PRIME SCH (15:15)
[2018-04-07] MEDS: Nystatin OINT 15 GM TUBE TP SCH ×2 (15:39→23:44)
[2018-04-07] MEDS: Miconazole w/zinc oxide&karaya 92 APPL/92 GM TUBE TP SCH ×2 (15:47→23:44)
[2018-04-07] MEDS ORDERED: Heparin 1,000 UNITS/500 mL 500 ML ONE (16:00)
[2018-04-07] MEDS ORDERED: *HR* Heparin 5,000 UNIT/ML VIAL ONE (16:16)
--- NOTE | 2018-04-07 16:27 | IR Procedure Note ---
Date of procedure: 04/07/18 Consent Obtained: Written consent Timeout: Correct patient and procedure verified, Time out performed, Skin prep completed Local anesthetic: Lidocaine 1% Indications: ARF Procedure Performed: Temp dialysis catheter placement Was there an administrative services assistant present: No Results/Findings: RIJ 15.5F 20cm temp dialysis catheter placement Estimated blood loss (cc): 0 Complications: None; Tolerated procedure well Post Procedure Treatment Plan: Monitor on floor Specimen: None
[2018-04-07 18:37] LABS: Hepatitis B Surface Antibody 1.46 mIU/mL; Hepatitis B Surface Antigen Nonreactive (Nonreactive)
[2018-04-07 21:43] LABS: Hematocrit 18.4 % (37.5-50.1); Hemoglobin 6.7 g/dL (12.9-16.9)
[2018-04-07] MEDS: Octreotide 400 MCG in 0.9 % Sodium Chloride 100 ML IVC SCH (23:25)
[2018-04-08] MEDS ORDERED: 0.9 % Sodium Chloride 250 ML ONE (04:59)
[2018-04-08 05:25] LABS: Hemoglobin 6.8 g/dL (12.9-16.9)
[2018-04-08 05:27] LABS: Hematocrit 19.1 % (37.5-50.1); Immature Platelets 14.6 % (1.1-6.1); Mean Corpuscular HGB Conc 35.6 g/dL (31.6-35.5); Mean Corpuscular Hemoglobin 32.1 pg (28.0-33.3); Mean Corpuscular Volume 90.1 fL (83.0-100.0); Nucleated Red Blood Cells 0.4 /100 WBC (0); Red Blood Count 2.12 M/mcL (4.19-5.50); Red Cell Distribution Width 21.7 % (11.5-14.5)
[2018-04-08 05:37] LABS: Platelet Count 69 K/mcL (140-400)
--- NOTE | 2018-04-08 05:37 | Nephrology Progress Note ---
Date of Encounter: 04/07/18 Time of Encounter: 11:00 - Assessment and Plan (1) Acute on chronic kidney failure Current Visit: Yes Status: Acute Patient with LISA/CKD with worsening renal failure, oliguira and hyperkalemia. He was considering palliative care, but now wants aggressive care including dialysis. I explained the risks and benefits of the procedure and he has agreed to proceed with hemodialysis. Qualifiers: Qualified Code(s): N17.9 - Acute kidney failure, unspecified; N18.9 - Chronic kidney disease, unspecified Subjective Principal diagnosis: LISA Interval history: Patient seen. Initially he was considering hospice care. He has now changed his mind and wants aggressive care including dialysis. Objective - Vital Signs Vital signs: Vital Signs Temp Pulse Resp BP Pulse Ox 04/08/18 05:20 94.3 F L 51 16 84/38 04/08/18 03:18 52 18 83/56 100 04/08/18 01:43 50 78/44 04/08/18 01:06 93.7 F L 50 16 82/46 99 04/07/18 22:20 54 111/64 04/07/18 21:45 104/62 04/07/18 21:30 95.0 F L 119/60 04/07/18 21:15 94/47 04/07/18 21:06 95 04/07/18 21:01 96/53 04/07/18 20:56 54 95/51 04/07/18 20:36 98.4 F 55 18 83/39 92 04/07/18 18:36 97.5 F L 58 18 84/46 92 04/07/18 17:14 97.7 F 60 23 79/46 96 04/07/18 10:39 97.6 F 62 18 85/50 98 04/07/18 07:06 97.9 F 62 19 80/44 96 04/07/18 06:30 98.5 F Intake and Output 04/07/18 04/07/18 04/08/18 15:59 23:59 07:59 Intake Total 340 / 340 0 / 0 0 / 0 Output Total 0 / 0 Balance 340 / 340 0 / 0 0 / 0 Intake: IV Fluids 100 / 100 Flexbumin 25 gm In 100 ml @ 60 100 / 100 mls/hr IVPB Q12HR [facility] Rx#: [id number] Oral 240 / 240 0 / 0 0 / 0 Blood Product 0 / 0 Rbcs Leuko Poor As-1 Unit 0 / 0 [id number] Output: Urine 0 / 0 Other: Meal Lunch NPO Pt. is NPO Percent of Meal Consumed 15% 0% Stool Size Moderate Copious Stool Consistency liquid loose Stool Color Brown Brown # Bowel Movements 1 1 Weight 101.4 kg Blood Glucose* 92 140 Patient Weight 04/08/18 23:59 Weight 101.4 kg - General Appearance General appearance: Present: well-developed, well-nourished, obese EENT: Present: ATNC Cardiology: Present: edema, regular rate Neurologic: Present: alert and oriented x3 Psychiatric: Present: mood/affect appropriate - Lab 04/07/18 21:24 04/07/18 00:30 Most recent lab results Calcium 8.1 mg/dL (8.6-10.3) L 04/07/18 00:30 Phosphorus 6.8 mg/dL (2.7-4.5) H 04/06/18 00:21 Magnesium 1.7 mg/dL (1.6-2.6) 04/06/18 00:21 Urine Creatinine 217 mg/dL 04/06/18 17:09 Urine Sodium 20.6 mEq/L 04/06/18 17:09 Urine Total Protein 130 mg/dL (1-14) H 04/06/18 17:09 Consult Discharge Plan - Plan Referrals: NONE,PCP [Primary Care Provider] -
[2018-04-08 05:43] LABS: Calcium 8.4 mg/dL (8.6-10.3)
[2018-04-08 06:48] LABS: Eosinophils # 0.2 K/mcL (0.0-0.6); Lymphocytes # 0.9 K/mcL (0.6-4.6); Monocytes # 1.3 K/mcL (0.0-1.3); Platelet Estimate Decreased (Normal)
[2018-04-08 06:49] LABS: Hypochromasia Present (Not Present); Poikilocytosis 2+ (Not Present); Target Cells 2+ (Not Present)
[2018-04-08 06:52] LABS: Anisocytosis 2+ (Not Present); Burr Cells 1+ (Not Present); Large Platelets Present (Not Present); Macrocytosis Present (Not Present); Microcytosis Present (Not Present)
[2018-04-08 06:53] LABS: Schistocytes 1+ (Not Present)
[2018-04-08 06:54] LABS: Acanthocytes 1+ (Not Present)
--- NOTE | 2018-04-08 07:23 | Internal Med Progress Note ---
Date of Encounter: 04/08/18 Time of Encounter: 07:30 - Assessment and plan (1) Sepsis Current Visit: Yes Status: Acute Assessment and plan: Query Sepsis. Pt is hypothermic and hypotensive with worsened mentation, which may be 2/2 to cirrhosis but could also be 2/2 to sepsis. Will start on broad spectrum antibiotics with vancomycin and aztreonam. Obtain blood cultures. Obtain DIC panel as hemoglobin is dropping with no active evidence of GI bleed. ICU consulted. Patient has now been made hospice Qualifiers: Sepsis type: sepsis due to unspecified organism Qualified Code(s): A41.9 - Sepsis, unspecified organism (2) Acute on chronic kidney failure Current Visit: Yes Status: Acute Assessment and plan: Cr worsened to 4 this am. Has been started on dialysis. Renal following Qualifiers: Acute renal failure type: unspecified Chronic kidney disease stage: unspecified stage Qualified Code(s): N17.9 - Acute kidney failure, unspecified ; N18.9 - Chronic kidney disease, unspecified (3) Acute congestive heart failure Current Visit: Yes Status: Acute Assessment and plan: SOB at rest progressed for the last 2 days. Patient has known hx of CHF, and patient has been out of home lasix for 2 days. Last echo 01/2018 LVEF 60-65%, HFpEF. Patient has clinical signs of CHF exacerbation w/ SOB at rest, PND, orthopnea, bilateral leg edema. Continue on lasix IV. Has been started on dialysis in the last 24hrs. Qualifiers: Heart failure type: diastolic Qualified Code(s): I50.31 - Acute diastolic ( congestive) heart failure (4) Cirrhosis Current Visit: Yes Status: Acute Assessment and plan: . Ultrasound showed smalll to moderate ascites. Liver ultrasound showed liver cirrhosis without intrhepatic dilatation. GI has seen patient and recommened titrating lactulose to 2-4 BM. Rifaxmin increased to TID. AFP pending. GI possibly plan for TIPS procedure. Qualifiers: Hepatic cirrhosis type: unspecified hepatic cirrhosis Ascites presence: with ascites Qualified Code(s): K74.60 - Unspecified cirrhosis of liver; R18.8 - Other ascites (5) Anemia Current Visit: Yes Status: Acute Assessment and plan: hgb 6.7 this am. GI following. Will transfuse 2 units PRBCl Qualifiers: Anemia type: unspecified type Qualified Code(s): D64.9 - Anemia, unspecified (6) Pancreas cancer Current Visit: Yes Status: Chronic Assessment and plan: s/p whipple procedure. continue home enzyme replacement Qualifiers: Pancreatic malignancy location: unspecified Qualified Code(s): C25.9 - Malignant neoplasm of pancreas, unspecified (7) Uncontrolled diabetes mellitus Current Visit: Yes Status: Acute Assessment and plan: poorly controlled diabetes. hold home rx, will put on medium SSI Qualifiers: Diabetes mellitus type: type 2 Qualified Code(s): E11.65 - Type 2 diabetes mellitus with hyperglycemia (8) Hyperkalemia Current Visit: Yes Status: Acute Assessment and plan: Potassium still elevated at 6.0. Will give kayaxalate. continue dialysis per renal (9) DVT prophylaxis Current Visit: Yes Status: Acute Assessment and plan: sq heparin (10) Chronic kidney disease (CKD), stage III (moderate) Current Visit: Yes Status: Chronic Assessment and plan: see above (11) Goals of care, counseling/discussion Current Visit: Yes Status: Acute Assessment and plan: Discussed with patient goals of care. Patient requests to not be resuscitated in the setting of cardiac or resp arrest. Patient's PoA default is . Code Status DNR/DNI/CCA (12) (HFpEF) heart failure with preserved ejection fraction Current Visit: Yes Status: Acute Assessment and plan: see above (13) Hypothyroid Current Visit: Yes Status: Acute Assessment and plan: continue home levothyroxine Qualifiers: Qualified Code(s): E03.9 - Hypothyroidism, unspecified (14) Scrotal edema Current Visit: Yes Status: Acute - Time Spent With Patient Total time spent is greater than 50% in coordination of care (as documented) at patient's floor/unit and/or counseling patient: - Subjective Interval history: No acute events overnight. Had dialysis access placed - Constitutional Vitals: Temp Pulse Resp BP Pulse Ox 94.4 F L 51 14 79/43 100 04/08/18 05:35 04/08/18 06:27 04/08/18 05:35 04/08/18 06:27 04/08/18 03:18 General appearance: Present: A&O X 0, cooperative, A&O X 3, pleasant, answers questions appropriately Exam: Very lethargic, minimally responsive - Head Head exam: Present: atraumatic, normocephalic - Eye Eye exam: Present: PERRL, conjuntiva pink, sclera anicteric Pupils: Present: PERRL - Neck Neck exam general surgery: Present: supple, trachea midline. Absent: lymphadenopathy - Respiratory Respiratory exam: Present: decreased breath sounds. Absent: accessory muscle use, rales, rhonchi, wheezes - Cardiovascular Cardiovascular exam: Present: RRR, +S1, +S2. Absent: diastolic murmur, gallop, rubs, systolic murmur - GI/Abdominal GI/Abdominal exam: Present: normal bowel sounds, soft, no peritoneal signs. Absent: distended, tenderness Additional comments: Obese abdomen, edematous - Extremities Exam Extremities exam: Present: pedal edema, warm, radial pulses palpable and symmetrical. Absent: calf tenderness, cyanotic Additional comments: 2+ pitting edema bilaterally. Anasarca - Neurological Exam Neurological exam: Present: CN II-XII intact, oriented X3, no focal deficits. Absent: pronater drift, facial droop, speech deficit - Skin Skin exam: Present: dry, intact Internal Medicine: Result - Labs CBC & Chem 7: 04/08/18 09:45 04/08/18 04:00 Labs: Short CBC 04/07/18 04/08/18 Range/Units 21:24 04:00 WBC 7.4 (4.3-11.1) K/mcL Hgb 6.7 L 6.8 L (12.9-16.9) g/dL Hct 18.4 L 19.1 L (37.5-50.1) % Plt Count 69 L (140-400) K/mcL Neutrophils # 5.0 (1.6-8.9) K/mcL BMP 04/08/18 04:00 Sodium 133 L Potassium 6.0 H Chloride 108 H Carbon Dioxide 16 L BUN 31 H Creatinine 4.45 H Glucose 132 H Calcium 8.4 L - ABG Interpretation ABG results: PT/INR, D-dimer PT 29.5 Seconds (9.4-12.1) H 04/07/18 00:30 - Impressions Impressions Chest X-Ray 04/06/18 23:44 IMPRESSION: Mild improvement of the lung findings. Persistent CHF and bilateral pleural effusions. D/ /06/2018 12:31:30 Keisha Sommers MD / mendez Interpreting Provider: Keisha Sommers MD Guidance Ultrasound 04/07/18 00:00 IMPRESSION: 1. Right internal jugular vein temporary dialysis catheter placement as discussed above. D/ / Adolfo Mayer MD / Adolfo Mayer MD Interpreting Provider: Adolfo Mayer MD Insertion Non-Tunneled Catheter 04/07/18 00:00 IMPRESSION: 1. Right internal jugular vein temporary dialysis catheter placement as discussed above. D/ / Adolfo Mayer MD / Adolfo Mayer MD Interpreting Provider: Adolfo Mayer MD Chest X-Ray 04/07/18 19:36 IMPRESSION: Appropriate right IJ dialysis catheter positioning. No pneumothorax. Worsening pulmonary edema with unchanged small effusions. D/ / Robbie Hanna / Robbie Hanna Interpreting Provider: Robbie Hanna Liver Ultrasound 04/07/18 20:00 IMPRESSION: Appearance of the liver is consistent with the provided diagnosis of cirrhosis. No definite focal liver lesion is identified. D/ / Avery Hood MD / Avery Hood MD Interpreting Provider: Avery Hood MD Consult Discharge Plan - Plan Referrals: NONE,PCP [Primary Care Provider] - (Patient will go home with [facility]. Please follow up as needed) Prescriptions: LORazepam Oral Conc [Ativan Oral Conc] 1 mg PO Q6HR 30 Days #30 mls Atropine 1% Opth Drops 3 drop SL Q4H 30 Days #1 bottle Hydromorphone HCl [Dilaudid] 1 mg PO Q6H PRN 30 Days #60 liquid PRN Reason: Abdominal Distention Miconazole w/zinc oxide&karaya [Antifungal Extra Thick] 1 appl TP TID #30 tube Nystatin OINT [Mycostatin] 1 appl TP BID #30 tube Scopolamine Patch [Transderm-Scop] 1.5 mg TD Q72H #60 patch.td72
[2018-04-08] MEDS: *HR* Heparin 5,000 UNIT/ML VIAL SQ SCH ×2 (07:26→07:58)
[2018-04-08] MEDS: Albumin 25% 25gram/100mL 25 GM/100 ML IV.SOLN IVPB SCH (08:35)
[2018-04-08] MEDS: Nicotine 14 MG PATCH.TD24 TD SCH (08:36)
[2018-04-08] MEDS: Aspirin Enteric Coated 81 MG Tablet PO SCH (08:41)
[2018-04-08] MEDS: Lactulose Oral Soln 20 GM/30 ML UDC PO SCH (08:42)
[2018-04-08] MEDS: Nystatin OINT 15 GM TUBE TP SCH (08:43)
[2018-04-08] MEDS: Miconazole w/zinc oxide&karaya 92 APPL/92 GM TUBE TP SCH ×2 (08:43→15:21)
[2018-04-08] MEDS: Insulin LISPRO 300 UNITS/3 ML VIAL SQ SCH ×2 (08:44→11:26)
[2018-04-08] MEDS ORDERED: Furosemide 40 MG/4 ML VIAL IVP SCH (09:00)
[2018-04-08] MEDS ORDERED: 0.9 % Sodium Chloride 1,000 ML PRIME ONE ×2 (09:33)
[2018-04-08] MEDS ORDERED: *HR* Heparin 5,000 UNIT/ML VIAL IV PRN (09:33)
[2018-04-08] MEDS ORDERED: PrismaSATE BGK 4/2.5 5,000 ML CRRT SCH ×3 (09:45)
[2018-04-08] MEDS ORDERED: 0.9 % Sodium Chloride 1,000 ML PRIME SCH (09:45)
--- NOTE | 2018-04-08 09:45 | Nephrology Progress Note ---
Date of Encounter: 04/08/18 Time of Encounter: 09:42 - Assessment and Plan (1) Acute on chronic kidney failure Current Visit: Yes Status: Acute Patient with LISA/CKD with worsening renal failure, oliguira and hyperkalemia. He was considering palliative care, but now wants aggressive care including dialysis. I explained the risks and benefits of the procedure and he has agreed to proceed with hemodialysis on 04/07/18. Overnight his condition worsened. He is less alert and has developed hypothermia and his blood pressure is worse. His dialysis was held yesterday secondary to his hypothermia. Today he continues to be hypothermic with a decreasing temperature and he is not oriented. I spoke initially with Dr. Oliveros with initial plans for transfer to ICU for continuous dialysis. I called his to update her and ensure this is consistent with her wishes as this would be a significant deviation from the previous care plan. Speaking with Mrs. Trimble she thinks that it would be best for him to come home with hospice as she is of the opinion that Mr. Trimble thinks the dialysis is a "treatment" that will improve his prognosis. After my discussion with her she confirmed that she would like to bring him home with hospice if possible today. I communicated this with Dr. Oliveros who will contact social work. 37 minutes spent in the care of this patient with greater than 1/2 of that time spent in the coordination of care and/or counseling. Qualifiers: Qualified Code(s): N17.9 - Acute kidney failure, unspecified; N18.9 - Chronic kidney disease, unspecified (2) Acute congestive heart failure Current Visit: Yes Status: Acute Qualifiers: Heart failure type: diastolic Qualified Code(s): I50.31 - Acute diastolic ( congestive) heart failure (3) Anemia Current Visit: Yes Status: Acute Qualifiers: Anemia type: unspecified type Qualified Code(s): D64.9 - Anemia, unspecified (4) Cirrhosis Current Visit: Yes Status: Acute Qualifiers: Hepatic cirrhosis type: unspecified hepatic cirrhosis Ascites presence: with ascites Qualified Code(s): K74.60 - Unspecified cirrhosis of liver; R18.8 - Other ascites (5) Hyperkalemia Current Visit: Yes Status: Acute Subjective Principal diagnosis: LISA Interval history: Patient seen and evaluated. Overnight the patient has developed hypothermia and hypotension. Dialysis was held. This morning he is not as responsive as yesterday. Initially he was considering hospice care. He changed his mind yesterday and wants more aggressive care including dialysis. Objective - Vital Signs Vital signs: Vital Signs Temp Pulse Resp BP Pulse Ox 04/08/18 07:56 94.6 F L 49 14 79/41 99 04/08/18 06:27 51 79/43 04/08/18 05:35 94.4 F L 52 14 77/39 04/08/18 05:20 94.3 F L 51 16 84/38 04/08/18 03:18 52 18 83/56 100 04/08/18 01:43 50 78/44 04/08/18 01:06 93.7 F L 50 16 82/46 99 04/07/18 22:20 54 111/64 04/07/18 21:45 104/62 04/07/18 21:30 95.0 F L 119/60 04/07/18 21:15 94/47 04/07/18 21:06 95 04/07/18 21:01 96/53 04/07/18 20:56 54 95/51 04/07/18 20:36 98.4 F 55 18 83/39 92 04/07/18 18:36 97.5 F L 58 18 84/46 92 04/07/18 17:14 97.7 F 60 23 79/46 96 04/07/18 10:39 97.6 F 62 18 85/50 98 Intake and Output 04/07/18 04/08/18 04/08/18 23:59 07:59 15:59 Intake Total 100 / 100 350 / 350 Output Total 0 / 0 Balance 100 / 100 350 / 350 Intake: IV Fluids 100 / 100 Flexbumin 25 gm In 100 ml @ 60 100 / 100 mls/hr IVPB Q12HR [facility] Rx#: [id number] Oral 0 / 0 0 / 0 Blood Product 350 / 350 Rbcs Leuko Poor As-1 Unit 350 / 350 [id number] Output: Urine 0 / 0 Other: Meal NPO Pt. is NPO Percent of Meal Consumed 0% Stool Size Copious Stool Consistency loose Stool Color Brown # Bowel Movements 1 Weight 101.4 kg Blood Glucose* 140 Patient Weight 04/08/18 23:59 Weight 101.4 kg - General Appearance General appearance: Present: well-developed, well-nourished, obese EENT: Present: ATNC Neck: Present: supple Respiratory: Present: course breath sounds Cardiology: Present: edema, regular rate Dialysis Vascular Access: Venous Catheter Gastrointestinal: Present: obese Integumentary: Present: cool/clammy Additional Comments: Lethargic, but arousable. Musculoskeletal: Present: no cyanosis - Lab 04/08/18 04:00 04/08/18 04:00 Most recent lab results Calcium 8.4 mg/dL (8.6-10.3) L 04/08/18 04:00 Phosphorus 6.8 mg/dL (2.7-4.5) H 04/06/18 00:21 Magnesium 1.7 mg/dL (1.6-2.6) 04/06/18 00:21 Urine Creatinine 217 mg/dL 04/06/18 17:09 Urine Sodium 20.6 mEq/L 04/06/18 17:09 Urine Total Protein 130 mg/dL (1-14) H 04/06/18 17:09 Consult Discharge Plan - Plan Referrals: NONE,PCP [Primary Care Provider] -
[2018-04-08 10:01] LABS: Hemoglobin 7.4 g/dL (12.9-16.9)
[2018-04-08 10:02] LABS: Hematocrit 21.2 % (37.5-50.1)
[2018-04-08 10:20] LABS: INR 2.5; Prothrombin Time 27.1 Seconds (9.4-12.1)
--- NOTE | 2018-04-08 13:40 | Discharge Summary ---
Orders not resulted at time of discharge: Pending orders 04/06/18 12:04 FÉLIX IgG PETR rflx IFA Stat Complement Component 3 Stat Complement Component 4 Stat [place] Lambda Qnt FLC w Ratio Stat 04/07/18 17:25 AFP Tumor Marker Non- Routine 04/07/18 21:24 Type and Screen [BBK] Stat 04/08/18 01:52 Red Blood Cells [BBK] Stat 04/08/18 09:45 Culture,Blood [BC] Routine 04/08/18 13:20 Lactic Acid Stat 04/09/18 04:00 Activated Partial Thrombo Time [COAG] AM 0400 Basic Metabolic Panel AM 0400 CBC [Complete Blood Count] [HEME] AM 0400 Complete Blood Count [HEME] AM 0400 Hepatic Panel AM 0400 Lactic Acid AM 0400 Magnesium AM 0400 Phosphorous AM 0400 Renal Function Panel AM 0400 04/10/18 04:00 Basic Metabolic Panel AM 0400 CBC [Complete Blood Count] [HEME] AM 0400 04/11/18 04:00 Basic Metabolic Panel AM 0400 CBC [Complete Blood Count] [HEME] AM 0400 04/12/18 04:00 Basic Metabolic Panel AM 0400 CBC [Complete Blood Count] [HEME] AM 0400 Date of Encounter: 04/08/18 Time of Encounter: 13:30 - Discharge Diagnosis (1) Sepsis Priority: Primary Status: Acute Assessment and Plan: 53 year old male w/ pmh of HFpEF, CKD3, pancreatic cancer s/p whipple, MORALES/ liver cirrhosis presents with 2 day hx of SOB. Patient for the last month has had increased SOB on exertion, bilateral leg edema, orthopnea, and PND. Pt was managed for anasarca likely 2/2 to acute exacerabtion of diastlic CHF, acute renal failure and acute decompensated liver cirrhosis. He was started on lasix and fgiven albumin intermittently but his creatininte got worse with continued fluid retention. He was seen by renal who determined dialysis would be indicated. He got a dialysis access placed yesterday, howevre dialysis was held 2/2 to hypotension. He was also seen by GI who adjusted the dose of his rifaximin and recommened a possible TIPS procedure for his liver cirrhosis and portal hypertension. This am 04/08, he was noted to be hypothermic and had worsening hypotension. Etiology could be multifactorial from liver cirrhosis but could also be 2/2 to sepsis. He was started on broad spectrum antibiotics with vancomycin and aztreonam and ICU was consulted who accepted him for transfer. However, on discussion, a determination was made to make him hospice and further aggressive ntervention will be discontinued at this time. He was also noted to be anemic at 6.8 which could be 2/2 to DIC vs GI bleed but there will be no further intervention since he is going to hospice Qualifiers: Sepsis type: sepsis due to unspecified organism Qualified Code(s): A41.9 - Sepsis, unspecified organism (2) Acute on chronic kidney failure Priority: Secondary Status: Acute Assessment and Plan: Cr worsened to 4 this am. Renal following Qualifiers: Acute renal failure type: unspecified Chronic kidney disease stage: unspecified stage Qualified Code(s): N17.9 - Acute kidney failure, unspecified ; N18.9 - Chronic kidney disease, unspecified (3) Acute congestive heart failure Priority: Secondary Status: Acute Assessment and Plan: SOB at rest progressed for the last 2 days. Patient has known hx of CHF, and patient has been out of home lasix for 2 days. Last echo 01/2018 LVEF 60-65%, HFpEF. Patient has clinical signs of CHF exacerbation w/ SOB at rest, PND, orthopnea, bilateral leg edema. Continue on lasix IV. . Qualifiers: Heart failure type: diastolic Qualified Code(s): I50.31 - Acute diastolic ( congestive) heart failure (4) Cirrhosis Priority: Secondary Status: Acute Assessment and Plan: . Ultrasound showed smalll to moderate ascites. Liver ultrasound showed liver cirrhosis without intrhepatic dilatation. GI has seen patient and recommened titrating lactulose to 2-4 BM. Rifaxmin increased to TID. AFP pending. GI possibly plan for TIPS procedure. Qualifiers: Hepatic cirrhosis type: unspecified hepatic cirrhosis Ascites presence: with ascites Qualified Code(s): K74.60 - Unspecified cirrhosis of liver; R18.8 - Other ascites (5) Anemia Priority: Secondary Status: Acute Assessment and Plan: hgb 6.7 this am. GI following. Hospice Qualifiers: Anemia type: unspecified type Qualified Code(s): D64.9 - Anemia, unspecified (6) Pancreas cancer Priority: Secondary Status: Chronic Qualifiers: Pancreatic malignancy location: unspecified Qualified Code(s): C25.9 - Malignant neoplasm of pancreas, unspecified (7) Uncontrolled diabetes mellitus Priority: Secondary Status: Acute Qualifiers: Diabetes mellitus type: type 2 Qualified Code(s): E11.65 - Type 2 diabetes mellitus with hyperglycemia (8) Hyperkalemia Priority: Secondary Status: Acute (9) DVT prophylaxis Priority: Secondary Status: Acute (10) Chronic kidney disease (CKD), stage III (moderate) Priority: Secondary Status: Chronic (11) Goals of care, counseling/discussion Priority: Secondary Status: Acute (12) (HFpEF) heart failure with preserved ejection fraction Priority: Secondary Status: Acute (13) Hypothyroid Priority: Secondary Status: Acute Qualifiers: Qualified Code(s): E03.9 - Hypothyroidism, unspecified (14) Scrotal edema Priority: Secondary Status: Acute Hospital course: Mr. Trimble is a 53 year old male - Time Spent with Patient Total time spent providing and/or coordinating discharge services: - Discharge Medications Prescriptions: LORazepam Oral Conc [Ativan Oral Conc] 1 mg PO Q6HR 30 Days #30 mls Atropine 1% Opth Drops 3 drop SL Q4H 30 Days #1 bottle Hydromorphone HCl [Dilaudid] 1 mg PO Q6H PRN 30 Days #60 liquid PRN Reason: Abdominal Distention Miconazole w/zinc oxide&karaya [Antifungal Extra Thick] 1 appl TP TID #30 tube Nystatin OINT [Mycostatin] 1 appl TP BID #30 tube Scopolamine Patch [Transderm-Scop] 1.5 mg TD Q72H #60 patch.td72 Home Medications: Aspirin [Adult Low Dose Aspirin EC] 81 mg PO DAILY 10/29/15 [History] Atorvastatin [Lipitor] 40 mg PO HS 10/29/15 [History] Insulin ASPART [NovoLOG] 0 unit SQ TIDWM 10/29/15 [History] Levothyroxine [Synthroid] 175 mcg PO 0630 10/29/15 [History] Omeprazole [PriLOSEC] 40 mg PO DAILY 10/29/15 [History] Prochlorperazine Maleate [Compazine] 10 mg PO Q6HR PRN #120 tablet 11/17/15 [Rx] Insulin Degludec [Tresiba Flextouch U-100] 15 - 20 unit SQ HS 04/26/17 [History] Ropinirole HCl [Requip] 3 mg PO HS #30 tablet 07/07/17 [Rx] Lipase/Protease/Amylase [[place] 6,000 Units Capsule] 4 each PO TIDWM #480 cap 07/19/17 [Rx] Ciprofloxacin HCl [Cipro] 500 mg PO BID 01/11/18 [History] HYDROcodone/Acet 10/325 mg [[place] 10-325 mg] 1 tab PO BID PRN 01/11/18 [History] Nadolol 20 mg PO DAILY 01/11/18 [History] Rifaximin [Xifaxan] 550 mg PO BID 01/11/18 [History] Sennosides/Docusate Sodium [Senna Plus] 2 tab PO HS PRN 01/11/18 [History] DiphenhydraMINE [Benadryl] 25 mg IVP Q6HR PRN vial 01/18/18 [Rx] Furosemide [Lasix] 40 mg PO BID 30 Days #60 tab 01/18/18 [Rx] Lactulose 20 gm PO BID 30 Days #60 udc 01/18/18 [Rx] Midodrine [ProAmatine] 2.5 mg PO 0800,1200,1700 30 Days #90 tablet 01/18/18 [Rx] Nicotine Patch [Nicoderm] 14 mg TD DAILY 14 Days #14 patch.td24 01/18/18 [Rx] Diclofenac Sodium [Voltaren] 50 mg PO BID #30 tablet. 02/28/18 [Rx] Atropine 1% Opth Drops 3 drop SL Q4H 30 Days #1 bottle 04/08/18 [Rx] Hydromorphone HCl [Dilaudid] 1 mg PO Q6H PRN 30 Days #60 liquid 04/08/18 [Rx] LORazepam Oral Conc [Ativan Oral Conc] 1 mg PO Q6HR 30 Days #30 mls 04/08/18 [Rx ] Miconazole w/zinc oxide&karaya [Antifungal Extra Thick] 1 appl TP TID #30 tube 04/08/18 [Rx] Nystatin OINT [Mycostatin] 1 appl TP BID #30 tube 04/08/18 [Rx] Scopolamine Patch [Transderm-Scop] 1.5 mg TD Q72H #60 patch.td72 04/08/18 [Rx] Allergies/Adverse Reactions: 3 Allergy/AdvReac Type Severity Reaction Status Date / Time metformin Allergy Unknown unknown Verified 02/28/18 18:16 morphine Allergy Unknown Unknown Verified 02/28/18 18:16 Penicillins Allergy Unknown Rash Verified 02/28/18 18:16 Date of admission: 04/05/18 23:00 Primary care physician: PCP NONE Consults: 04/06/18 05:08 Consult to Nephrology [CONS] Routine Consulting Provider: Kidney [facility]/PRABHU/STACIE/KARMEN Reason for Consult: LISA on CKD Call Completed: No 04/06/18 09:13 Consult to Urology [CONS] Routine Consulting Provider: [facility] [place] Reason for Consult: scrotal edema and pain Call Completed: Yes 04/07/18 09:10 Consult to Gastroenterology [CONS] Routine Consulting Provider: Gastroenterology [facility] Reason for Consult: decompensated liver cirrhosis Call Completed: Yes 04/07/18 09:21 Consult to Palliative Care [CONS] Routine Comment: Consulting Provider: Palliative Care [facility] Reason for Consult: End stage liver disease, CHF Call Completed: Yes 04/07/18 14:05 Consult to Interventional Radiology [CONS] Routine Consulting Provider: Radiology Interventional [facility] Reason for Consult: Patient needs a non tunneled dialysis line for dialysis today. Call Completed: Yes 04/07/18 15:15 Consult to Dialysis [CONS] ONCE 04/08/18 09:48 Consult to Pulmonology [CONS] Routine Consulting Provider: Pulm [facility] [place] Reason for Consult: sepsis, hypotension, acute renal failure, altered mental status Call Completed: Yes - Constitutional Vitals: Temp Pulse Resp BP Pulse Ox 94.6 F L 49 14 79/41 99 04/08/18 07:56 04/08/18 07:56 04/08/18 07:56 04/08/18 07:56 04/08/18 07:56 General appearance: Present: cooperative, A&O X 3, pleasant, answers questions appropriately Exam: lethargic, minimally arousable - Respiratory Additional comments: Coarse breath sounds - Cardiovascular Additional comments: anasarca - Patient Status Disposition: Home, Self-Care Condition: Fair - Discharge Instructions Follow Up With: NONE,PCP [Primary Care Provider] - (Patient will go home with [facility]. Please follow up as needed)
[2018-04-08 13:54] VITALS: BP 78/39
--- NOTE | 2018-04-08 14:15 | Physician Discharge Referral ---
Home Health/Hosp Referral Info Transfer to: Home Health - Diagnosis (1) Sepsis Priority: Primary Status: Acute (2) Acute on chronic kidney failure Priority: Secondary Status: Acute (3) Acute congestive heart failure Priority: Secondary Status: Acute (4) Cirrhosis Status: Acute (5) Anemia Status: Acute (6) Pancreas cancer Status: Chronic (7) Uncontrolled diabetes mellitus Status: Acute (8) Hyperkalemia Status: Acute (9) DVT prophylaxis Status: Acute (10) Chronic kidney disease (CKD), stage III (moderate) Status: Chronic (11) Goals of care, counseling/discussion Status: Acute (12) (HFpEF) heart failure with preserved ejection fraction Status: Acute (13) Hypothyroid Status: Acute (14) Scrotal edema Status: Acute - Respiratory Orders Smoking Cessation: Smoking cessation has been advised. For more information, call the [employer] Quit Line at 3-778-TOEC-NOW. - Diet/Nutrition Diet/Nutrition Orders: Cardiac - Activity Activity Orders: Ambulate - Services Needed Following services are medically necessary services: Nursing, Home Health Aide, Physical Therapy - Transfer Medications Prescriptions: LORazepam Oral Conc [Ativan Oral Conc] 1 mg PO Q6HR 30 Days #30 mls Atropine 1% Opth Drops 3 drop SL Q4H 30 Days #1 bottle Hydromorphone HCl [Dilaudid] 1 mg PO Q6H PRN 30 Days #60 liquid PRN Reason: Abdominal Distention Miconazole w/zinc oxide&karaya [Antifungal Extra Thick] 1 appl TP TID #30 tube Nystatin OINT [Mycostatin] 1 appl TP BID #30 tube Scopolamine Patch [Transderm-Scop] 1.5 mg TD Q72H #60 patch.td72 Home Medications: Aspirin [Adult Low Dose Aspirin EC] 81 mg PO DAILY 10/29/15 [History] Atorvastatin [Lipitor] 40 mg PO HS 10/29/15 [History] Insulin ASPART [NovoLOG] 0 unit SQ TIDWM 10/29/15 [History] Levothyroxine [Synthroid] 175 mcg PO 0630 10/29/15 [History] Omeprazole [PriLOSEC] 40 mg PO DAILY 10/29/15 [History] Prochlorperazine Maleate [Compazine] 10 mg PO Q6HR PRN #120 tablet 11/17/15 [Rx] Insulin Degludec [Tresiba Flextouch U-100] 15 - 20 unit SQ HS 04/26/17 [History] Ropinirole HCl [Requip] 3 mg PO HS #30 tablet 07/07/17 [Rx] Lipase/Protease/Amylase [[place] 6,000 Units Capsule] 4 each PO TIDWM #480 cap 07/19/17 [Rx] Ciprofloxacin HCl [Cipro] 500 mg PO BID 01/11/18 [History] HYDROcodone/Acet 10/325 mg [[place] 10-325 mg] 1 tab PO BID PRN 01/11/18 [History] Nadolol 20 mg PO DAILY 01/11/18 [History] Rifaximin [Xifaxan] 550 mg PO BID 01/11/18 [History] Sennosides/Docusate Sodium [Senna Plus] 2 tab PO HS PRN 01/11/18 [History] DiphenhydraMINE [Benadryl] 25 mg IVP Q6HR PRN vial 01/18/18 [Rx] Furosemide [Lasix] 40 mg PO BID 30 Days #60 tab 01/18/18 [Rx] Lactulose 20 gm PO BID 30 Days #60 udc 01/18/18 [Rx] Midodrine [ProAmatine] 2.5 mg PO 0800,1200,1700 30 Days #90 tablet 01/18/18 [Rx] Nicotine Patch [Nicoderm] 14 mg TD DAILY 14 Days #14 patch.td24 01/18/18 [Rx] Diclofenac Sodium [Voltaren] 50 mg PO BID #30 tablet. 02/28/18 [Rx] Atropine 1% Opth Drops 3 drop SL Q4H 30 Days #1 bottle 04/08/18 [Rx] Hydromorphone HCl [Dilaudid] 1 mg PO Q6H PRN 30 Days #60 liquid 04/08/18 [Rx] LORazepam Oral Conc [Ativan Oral Conc] 1 mg PO Q6HR 30 Days #30 mls 04/08/18 [Rx ] Miconazole w/zinc oxide&karaya [Antifungal Extra Thick] 1 appl TP TID #30 tube 04/08/18 [Rx] Nystatin OINT [Mycostatin] 1 appl TP BID #30 tube 04/08/18 [Rx] Scopolamine Patch [Transderm-Scop] 1.5 mg TD Q72H #60 patch.td72 04/08/18 [Rx] Allergies/Adverse Reactions: 3 Allergy/AdvReac Type Severity Reaction Status Date / Time metformin Allergy Unknown unknown Verified 02/28/18 18:16 morphine Allergy Unknown Unknown Verified 02/28/18 18:16 Penicillins Allergy Unknown Rash Verified 02/28/18 18:16 Certification: Further, I certify that my clinical findings support that this patient is homebound (i.e. absences from home require considerable and taxing effort and are for medical reasons or mandaeism services or infrequently or short duration when for other reasons) because: Homebound Reason: Patient requires assistance of a person or device to safely leave home Attestation: My signature below is to certify that this patient is under my care and that I, or nurse practitioner, or a physician's anesthesiology physician assistant working with me, has a face-to -face encounter with this patient.
[2018-04-08] MEDS ORDERED: Scopolamine Patch 1.5 MG PATCH.TD72 TD SCH (14:30)
--- NOTE | 2018-04-08 15:08 | Pulmonology Consult Note ---
Date of Encounter: 04/08/18 Time of Encounter: 09:00 Assessment and Plan (1) Acute on chronic kidney failure Current Visit: Yes Status: Acute I was consulted because patient needs to be in intensive care unit for renal replacement therapy and I have tried to reach patient's because in my opinion this was futile and this was discussed with primary team as well as band log mill and carriage operator and we will agreed that, however because patient wanted to be more aggressive band log mill and carriage operator was planning to do renal replacement therapy in ICU due to hypotension. Subsequently this plan was changed and patient would be discharge on hospice which is appropriate in my opinion. Thank you for consultation Qualifiers: Acute renal failure type: unspecified Chronic kidney disease stage: unspecified stage Qualified Code(s): N17.9 - Acute kidney failure, unspecified ; N18.9 - Chronic kidney disease, unspecified (2) Acute congestive heart failure Current Visit: Yes Status: Acute Qualifiers: Heart failure type: diastolic Qualified Code(s): I50.31 - Acute diastolic ( congestive) heart failure (3) Altered mental status Current Visit: No Status: Acute Qualifiers: Altered mental status type: unspecified Qualified Code(s): R41.82 - Altered mental status, unspecified History of Present Illness Consult date: 04/08/18 Requesting physician: Agustina Oliveros Reason for consult: dyspnea, other (Critical care management) Chief complaint: Shortness of breath History of present illness: This is a 53-year-old male with multiple comorbidities and pancreatic cancer has been having shortness of breath. This history is taken from the chart because patient is somnolent and not able to give a reliable history. I have attempted to reach and I called her without success. This history is taken from from the chart. Patient apparently was in the hospice and then plan of care was changed and patient blood pressure is low he needed to be in ICU for a replacement therapy and pulmonary critical care was consulted. I am not able to obtain any more history from the patient. Apparently patient has been having increased shortness of breath on exertion with bilateral leg edema and orthopnea. Patient was given diuretics. Patient has no history of productive cough, wheezing or hemoptysis. His history of significant weight gain. Past Med Surg Social Fam HX - Past Medical History Medical history: cancer, cirrhosis, CHF, coronary artery disease, diabetes, hyperlipidemia, hypertension, thyroid disease Psychiatric history: anxiety, bipolar, depression - Past Surgical History Surgical History: cancer surgery, cholecystectomy, colectomy, coronary bypass ( CABG), splenectomy - Social History Smoking Status: Current every day smoker Smokeless Tobacco Status: No Alcohol use: none Drug use: none - Family History Father Adopted: [place]: Rex Family Member Ethnicity: Non- Living Status: Age at : 83 Cause of : cancer Hx Family Cardiac Disorders: No Hx Family Respiratory Disorders: No Hx Family Cancer: Yes Hx Family GI Disorders: No Hx Family Genitourinary Disorders: No Hx Family Endocrine Disorder: No Hx Family Musculoskeletal Disorders: No Hx Family Neuromuscular Disorders: No Hx Family Neurologic Disorders: No Hx Family HEENT Disorders: No Hx Family Autoimmune Disorders: No Hx Family Reproductive Disorders: No Hx Family Psychosocial Disorders: No Hx Family Medical Disorders: No Mother Adopted: [place]: Keysha Family Member Ethnicity: Non- Living Status: Still Living Hx Family Cardiac Disorders: Yes Hx Family Respiratory Disorders: Yes Hx Family Cancer: No Hx Family GI Disorders: No Hx Family Genitourinary Disorders: No Hx Family Endocrine Disorder: Yes Hx Family Musculoskeletal Disorders: No Hx Family Neuromuscular Disorders: No Hx Family Neurologic Disorders: No Hx Family HEENT Disorders: No Hx Family Autoimmune Disorders: No Hx Family Reproductive Disorders: No Hx Family Psychosocial Disorders: No Hx Family Medical Disorders: No Medications and Allergies Aspirin [Adult Low Dose Aspirin EC] 81 mg PO DAILY 10/29/15 [History] Atorvastatin [Lipitor] 40 mg PO HS 10/29/15 [History] Insulin ASPART [NovoLOG] 0 unit SQ TIDWM 10/29/15 [History] Levothyroxine [Synthroid] 175 mcg PO 0630 10/29/15 [History] Omeprazole [PriLOSEC] 40 mg PO DAILY 10/29/15 [History] Prochlorperazine Maleate [Compazine] 10 mg PO Q6HR PRN #120 tablet 11/17/15 [Rx] Insulin Degludec [Tresiba Flextouch U-100] 15 - 20 unit SQ HS 04/26/17 [History] Ropinirole HCl [Requip] 3 mg PO HS #30 tablet 07/07/17 [Rx] Lipase/Protease/Amylase [[place] Dr 6,000 Units Capsule] 4 each PO TIDWM #480 cap 07/19/17 [Rx] Ciprofloxacin HCl [Cipro] 500 mg PO BID 01/11/18 [History] HYDROcodone/Acet 10/325 mg [[place] 10-325 mg] 1 tab PO BID PRN 01/11/18 [History] Nadolol 20 mg PO DAILY 01/11/18 [History] Rifaximin [Xifaxan] 550 mg PO BID 01/11/18 [History] Sennosides/Docusate Sodium [Senna Plus] 2 tab PO HS PRN 01/11/18 [History] DiphenhydraMINE [Benadryl] 25 mg IVP Q6HR PRN vial 01/18/18 [Rx] Furosemide [Lasix] 40 mg PO BID 30 Days #60 tab 01/18/18 [Rx] Lactulose 20 gm PO BID 30 Days #60 udc 01/18/18 [Rx] Midodrine [ProAmatine] 2.5 mg PO 0800,1200,1700 30 Days #90 tablet 01/18/18 [Rx] Nicotine Patch [Nicoderm] 14 mg TD DAILY 14 Days #14 patch.td24 01/18/18 [Rx] Diclofenac Sodium [Voltaren] 50 mg PO BID #30 tablet. 02/28/18 [Rx] Atropine 1% Opth Drops 3 drop SL Q4H 30 Days #1 bottle 04/08/18 [Rx] Hydromorphone HCl [Dilaudid] 1 mg PO Q6H PRN 30 Days #60 liquid 04/08/18 [Rx] LORazepam Oral Conc [Ativan Oral Conc] 1 mg PO Q6HR 30 Days #30 mls 04/08/18 [Rx ] Miconazole w/zinc oxide&karaya [Antifungal Extra Thick] 1 appl TP TID #30 tube 04/08/18 [Rx] Nystatin OINT [Mycostatin] 1 appl TP BID #30 tube 04/08/18 [Rx] Scopolamine Patch [Transderm-Scop] 1.5 mg TD Q72H #60 patch.td72 04/08/18 [Rx] 3 Allergy/AdvReac Type Severity Reaction Status Date / Time metformin Allergy Unknown unknown Verified 02/28/18 18:16 morphine Allergy Unknown Unknown Verified 02/28/18 18:16 Penicillins Allergy Unknown Rash Verified 02/28/18 18:16 ROS unobtainable: due to mental status All Systems: The remainder of the systems were reviewed and are negative Physical Examination Vital Signs: Vital Signs, Last 4 Hours Temp Pulse Resp BP Pulse Ox 04/08/18 12:27 94.1 F L 45 14 78/39 4 General appearance: appears uncomfortable Eyes: icteric ENT: oropharynx dry Effort: mildly labored Auscultation: bilateral: diminished breath sounds Percussion: left: not dull, right: dull Cardiovascular: regular rate and rhythm Gastrointestinal: soft, non-tender Integumentary: cellulitis Extremities: edema unable to assess due to mental status Results - Laboratory Findings CBC and BMP: 04/08/18 09:45 04/08/18 04:00 PT/INR, D-dimer PT 27.1 Seconds (9.4-12.1) H 04/08/18 09:45 D-Dimer 3585 ng/mLFEU (0-500) H 04/08/18 09:45 Abnormal lab findings: Abnormal lab results RBC 2.12 M/mcL (4.19-5.50) L 04/08/18 04:00 Hgb 7.4 g/dL (12.9-16.9) L 04/08/18 09:45 Hct 21.2 % (37.5-50.1) L 04/08/18 09:45 MCHC 35.6 g/dL (31.6-35.5) H 04/08/18 04:00 RDW 21.7 % (11.5-14.5) H 04/08/18 04:00 Plt Count 69 K/mcL (140-400) L 04/08/18 04:00 Nucleated RBCs/100 WBC 0.4 /100 WBC (0) H 04/08/18 04:00 Platelet Estimate Decreased (Normal) L 04/08/18 04:00 Large Platelets Present (Not Present) A 04/08/18 04:00 Immature Plt Fraction 14.6 % (1.1-6.1) H 04/08/18 04:00 Hypochromasia Present (Not Present) A 04/08/18 04:00 Poikilocytosis 2+ (Not Present) A 04/08/18 04:00 Anisocytosis 2+ (Not Present) A 04/08/18 04:00 Microcytosis Present (Not Present) A 04/08/18 04:00 Macrocytosis Present (Not Present) A 04/08/18 04:00 Target Cells 2+ (Not Present) A 04/08/18 04:00 Lexa Cells 1+ (Not Present) A 04/08/18 04:00 Acanthocytes (Spur) 1+ (Not Present) A 04/08/18 04:00 Schistocytes 1+ (Not Present) A 04/08/18 04:00 PT 27.1 Seconds (9.4-12.1) H 04/08/18 09:45 APTT 101.6 Seconds (26.0-36.0) H 04/06/18 00:21 Fibrinogen 67 mg/dL (169-393) L* 04/08/18 09:45 D-Dimer 3585 ng/mLFEU (0-500) H 04/08/18 09:45 Sodium 133 mEq/L (136-145) L 04/08/18 04:00 Potassium 6.0 mEq/L (3.5-5.1) H 04/08/18 04:00 Chloride 108 mEq/L (98-107) H 04/08/18 04:00 Carbon Dioxide 16 mEq/L (23-29) L 04/08/18 04:00 BUN 31 mg/dL (6-20) H 04/08/18 04:00 Creatinine 4.45 mg/dL (0.70-1.30) H 04/08/18 04:00 Est GFR ( Amer) 17 (> 60) L 04/08/18 04:00 Est GFR (Non-Af Amer) 14 (> 60) L 04/08/18 04:00 Glucose 132 mg/dL (70-105) H 04/08/18 04:00 Lactic Acid 2.6 mmol/L (0.5-2.2) H 04/08/18 09:45 Uric Acid 9.4 mg/dL (2.3-7.6) H 04/06/18 12:04 Calcium 8.4 mg/dL (8.6-10.3) L 04/08/18 04:00 Phosphorus 6.8 mg/dL (2.7-4.5) H 04/06/18 00:21 Total Bilirubin 2.1 mg/dL (0.3-1.0) H 04/06/18 00:21 AST 57 Units/L (13-39) H 04/06/18 00:21 Alkaline Phosphatase 171 Units/L (34-104) H 04/06/18 00:21 Creatine Kinase 803 Units/L (30-223) H 04/06/18 12:04 Serum Total Protein 5.7 g/dL (6.4-8.9) L 04/06/18 00:21 Albumin 2.1 g/dL (3.5-5.7) L 04/06/18 00:21 Globulin 3.6 g/dL (2.4-3.5) H 04/06/18 00:21 Albumin/Globulin Ratio 0.6 (1.1-2.2) L 04/06/18 00:21 HDL Cholesterol < 3 mg/dL (40-59) L 04/06/18 00:21 Lipase < 3 Units/L (11-82) L 04/06/18 00:21 25-OH Vitamin D Total 7 ng/mL (30-80) L 04/06/18 12:04 PTH Intact 219.3 pg/ml (10.0-65.0) H 04/06/18 12:04 Urine Clarity Turbid (Clear) A 04/06/18 17:09 Ur Specific [place] 1.026 (1.010-1.025) H 04/06/18 17:09 Urine Protein 100 mg/dL (Neg-Trace) H 04/06/18 17:09 Urine Blood Large (Negative) H 04/06/18 17:09 Urine Bilirubin Small (Negative) H 04/06/18 17:09 Ur Leukocyte Esterase Large (Negative) H 04/06/18 17:09 Urine Microscopic RBC TNTC per hpf (0-3) H 04/06/18 17:09 Urine Microscopic WBC TNTC per hpf (0-3) H 04/06/18 17:09 Ur Squamous Epith Cells Many per lpf (None-Few) H 04/06/18 17:09 Ur Culture Indicated? NO. (NO) A 04/06/18 17:09 Protein/Creatinin Ratio 0.60 mg/mg (0.00-0.20) H 04/06/18 17:09 Urine Total Protein 130 mg/dL (1-14) H 04/06/18 17:09 Stool Occult Blood Positive (Negative) A 04/06/18 14:30 - Clinical Findings Intake & Output: Intake & Output 04/07/18 04/08/18 04/08/18 23:59 07:59 15:59 Intake Total 100 / 100 350 / 350 Output Total 0 / 0 Balance 100 / 100 350 / 350 Weight 101.4 kg Consult Discharge Plan - Plan Referrals: NONE,PCP [Primary Care Provider] - (Patient will go home with [facility]. Please follow up as needed) Prescriptions: LORazepam Oral Conc [Ativan Oral Conc] 1 mg PO Q6HR 30 Days #30 mls Atropine 1% Opth Drops 3 drop SL Q4H 30 Days #1 bottle Hydromorphone HCl [Dilaudid] 1 mg PO Q6H PRN 30 Days #60 liquid PRN Reason: Abdominal Distention Miconazole w/zinc oxide&karaya [Antifungal Extra Thick] 1 appl TP TID #30 tube Nystatin OINT [Mycostatin] 1 appl TP BID #30 tube Scopolamine Patch [Transderm-Scop] 1.5 mg TD Q72H #60 patch.td72
[2018-04-08] MEDS: Octreotide 400 MCG in 0.9 % Sodium Chloride 100 ML IVC SCH (15:21)
[2018-04-08] MEDS: Atropine 1% Opth Drops 100 DROP/5 ML BOTTLE SL PRN ×2 (15:22→17:00)
[2018-04-08] MEDS ORDERED: *HR* HYDROmorphone 2 MG/ML SYRINGE IVP PRN ×2 (15:23→15:47)
[2018-04-08] MEDS ORDERED: Aztreonam 1,000 MG in Water for inj. (sterile) 20 ML 10 ML IVP SCH (16:00)
[2018-04-08] MEDS ORDERED: *HR* LORazepam Oral Conc 2 MG/ML SL PRN (16:51)
[2018-04-08] MEDS ORDERED: MORPHINE SUL Oral CONC 10 MG/0.5 ML ORAL.SYG SL PRN ×3 (16:53→19:18)
[2018-04-08] MEDS ORDERED: Aminoglycoside Consult 1 EACH MC ONE (19:19)
[2018-04-09 10:31] LABS: Complement Component 3 42 mg/dL (88-201); Complement Component 4 10 mg/dL (10-40)
[2018-04-10 08:11] LABS: ANA IgG by ELISA NONE DETECTED (None Detected)
== END 2018-04-08 19:20 | disposition home or self-care (01) | DRG 871 ==
LOC: 2ANU
PROVIDERS: ADMIT Internal Medicine Nephrology; ATTEND Internal Medicine Nephrology